=== PATIENT | female | born 1945 | race Caucasian/White ===

== ENCOUNTER → 2017-07-18 16:23 | Outpatient (CLI) | payer MEDICARE, BC, SELFPAY ==
--- NOTE | 2017-07-18 16:31 | DI.RAD.S_ITS ---
PROCEDURE: XR CHEST 2V INDICATIONS: CHEST PAIN TECHNIQUE: 2 views of the chest were acquired. COMPARISON: [facility], , CHEST 2 VIEW, 07/22/2015, 14:55. FINDINGS: Surgical changes and devices: None. Lungs and pleura: No pleural effusions or pneumothorax. Lungs are clear. Lung volumes are increased with flattening of the hemidiaphragms suggesting COPD. Mediastinum: Mediastinal contours are normal. Heart size is normal. Bones and chest wall: No suspicious bony abnormalities. Soft tissues appear unremarkable. IMPRESSION: Lung volumes are increased suggesting COPD, correlate with pulmonary functions test. Dictated by: Isaiah Alejo [facility] Interpreted: Luis Enrique Palencia MD on 07/18/2017 at 17:00 Approved by: Luis Enrique Palencia M.D. on 07/18/2017 at 21:41
== END ==
PROVIDERS: Family Provider Family Medicine; PCP Family Medicine; Visit Provider Nurse Practitioner Family
DX: R07.9 Chest pain, unspecified (principal)
CPT/HCPCS: 71046

== ENCOUNTER → 2018-06-25 10:18 | Outpatient (CLI) | payer MEDICARE, BC, SELFPAY ==
--- NOTE | 2018-06-25 | DI.MG.S_ITS ---
BILATERAL DIGITAL SCREENING MAMMOGRAM 3D/2D WITH CAD: 06/25/2018 CLINICAL: Routine screening. Family history of breast cancer. Comparison is made to exams dated: 06/07/2017 mammogram, 12/12/2014 mammogram - [facility], and 10/26/2010 mammogram - [facility]. The tissue of both breasts is extremely dense, which lowers the sensitivity of mammography. Current study was also evaluated with a Computer Aided Detection (CAD) system. There are benign post operative findings in the left breast. There also are benign calcifications in both breasts. No significant masses, calcifications, or other findings are seen in either breast. There has been no significant interval change. IMPRESSION: There is no mammographic evidence of malignancy. A 1 year screening mammogram is recommended. This exam was interpreted at Station ID: [id number]. NOTE: For mammograms, a report in lay terms will be sent to the patient. Approximately 15% of breast malignancies will not be visualized mammographically. In the management of a palpable breast mass, a negative mammogram must not discourage biopsy of a clinically suspicious lesion. Electronically Signed By: Joe lima/falguni:06/25/2018 11:12:43 letter sent: Normal Exam ACR BI-RADS Category 2: Benign Finding(s) [id number]
== END ==
PROVIDERS: Family Provider Family Medicine; PCP Family Medicine; Visit Provider Family Medicine
DX: Z12.31 Encounter for screening mammogram for malignant neoplasm of breast (principal); Z80.3 Family history of malignant neoplasm of breast
CPT/HCPCS: 77063; 77067

== ENCOUNTER → 2018-10-23 18:33 | Outpatient (CLI) | payer MEDICARE, BC, SELFPAY ==
--- NOTE | 2018-10-23 18:39 | DI.MRI.S_ITS ---
PROCEDURE: MR KNEE LT WO CON INDICATIONS: PAIN IN LEFT KNEE TECHNIQUE: Noncontrast sagittal PD fast spin echo and T2 fast spin echo with fat saturation, sagittal 3-D FLASH with fat saturation; coronal T1 spin echo and PD fast spin echo with fat saturation, and axial PD fast spin echo with fat saturation through the knee. COMPARISON: [facility], MR, KNEE WITHOUT CONTRAST, 10/05/2016, 12:58. FINDINGS: Image quality: Excellent. Menisci: Linear high T2 signal intensity within the posterior horn medial meniscus is present, without articular surface extension, consistent with myxoid degeneration, as before. Cruciate ligaments: The anterior and posterior cruciate ligaments appear intact. Medial structures: The medial collateral ligament appears intact. Visualized portions of the pes anserinus tendons appear normal. No abnormal bursal fluid. Lateral structures: The lateral collateral ligament, long and short heads of the biceps femoris tendon appear intact. The popliteus tendon appears normal. Iliotibial band appears normal. Anterior structures: The quadriceps and patellar tendons appear intact. Mild T2 signal elevation within the patellar tendon at the patellar insertion site. Patellar alignment is normal. No femoral trochlear dysplasia or ventral trochlear prominence. No edema in the infrapatellar fat pad. Bones and cartilage: No bone marrow contusions or fractures. Articular cartilage fibrillation overlies the lateral patellar facet. Moderate diffuse articular cartilage loss overlies the weightbearing aspect of the medial femoral condyle and medial tibial plateau. Mild diffuse articular cartilage loss overlies the weightbearing aspects of the lateral femoral condyle and lateral tibial plateau. Joint space: There is physiologic knee joint fluid. Trace Diana's cyst. Normal appearing synovial plicae are incidentally noted. IMPRESSION: 1. No internal derangement. 2. Trace Diana's cyst. 3. Mild patellar tendinitis. Dictated by: Reinaldo Stauffer M.D. on 10/24/2018 at 11:35 Approved by: Reinaldo Stauffer M.D. on 10/24/2018 at 11:41
== END ==
PROVIDERS: Family Provider Family Medicine; PCP Family Medicine; Visit Provider Orthopaedic Surgery
DX: M25.562 Pain in left knee (principal); M76.52 Patellar tendinitis, left knee
CPT/HCPCS: 73721

== ENCOUNTER → 2018-11-26 07:12 | Outpatient (CLI) | payer MEDICARE, BC, SELFPAY ==
[2018-11-26 08:24] LABS: Appearance Urine UA CLEAR; Bilirubin Urine UA NEGATIVE (NEGATIVE); Color Urine UA YELLOW; Glucose Urine UA NEGATIVE (Negative); Ketones Urine UA 1+ (NEGATIVE); Leukocyte Esterase Urine UA NEGATIVE (NEGATIVE); Nitrite Urine UA NEGATIVE (Negative); Occult Blood Urine UA TRACE-LYSED (Negative); Protein Urine UA NEGATIVE (Negative); Urobilinogen Urine UA 0.2 E.U./dL (0.2)
[2018-11-26 08:44] LABS: Add Manual Diff / Slide Review NO; Basophils Absolute Auto 100 /uL (0-100); Eosinophils Absolute Auto 100 /uL (0-450); Eosinophils Percent Auto 1.8 % (2-4); Hematocrit 45.1 % (36-46); Hemoglobin 15.6 g/dL (12.0-16.0); Lymphocytes Absolute Auto 1400 /uL (1100-4500); Lymphocytes Percent Auto 23.2 % (25-40); Mean Corpuscular HGB Conc 34.6 % (30-36); Mean Corpuscular Volume 92.4 fL (80-100); Monocytes Absolute Auto 500 /uL (0-900); Monocytes Percent Auto 8.8 % (3-14); Neutrophils Absolute Auto 4000 /uL (1500-7000); Neutrophils Percent Auto 65.2 % (50-75); Platelet Count 314 X10^3/uL (150-400); Red Blood Cell Count 4.88 X10^6/uL (4.0-5.2); Red Cell Distribution Width 13.5 % (11.6-14.8); White Blood Cell Count 6.2 X10^3/uL (4.5-11.0)
[2018-11-26 08:46] LABS: Prothrombin Time 11.8 SECONDS (10.1-12.7)
[2018-11-26 08:53] LABS: HEMOLYSIS < 15 (0-50); Iron 115 ug/dL (37-170)
[2018-11-26 08:54] LABS: Alanine Aminotransferase 16 IU/L (9-52); Albumin 4.8 g/dL (3.5-5.0); Albumin Globulin Ratio 1.5 (1.0-2.8); Alkaline Phosphatase 73 U/L (38-126); Aspartate Aminotransferase 28 IU/L (14-36); BUN Creatinine Ratio 15.7 (6-22); Bilirubin Total 0.5 mg/dL (0.2-1.3); Blood Urea Nitrogen 11 mg/dL (7-17); Calcium 9.8 mg/dL (8.4-10.2); Carbon Dioxide 25 mmol/L (22-32); Chloride 103 mmol/L (98-107); Estimated Glomerular Filt Rate > 60.0 mL/min (>60); Globulin 3.1 g/dL (1.7-4.1); Glucose 94 mg/dL (80-110); HEMOLYSIS < 15 (0-50); Potassium 3.9 mmol/L (3.4-5.1); Sodium 138 mmol/L (137-145); Total Protein 7.9 g/dL (6.3-8.2)
[2018-11-26 09:04] LABS: Percent Iron Saturation 31 % (15-50); Total Iron Binding Capacity 367 ug/dL (265-497); Transferrin 319 mg/dL (206-381)
[2018-11-26 09:29] LABS: Ferritin 85.4 ng/mL (11.1-264)
== END ==
PROVIDERS: PCP Family Medicine; Visit Provider Family Medicine
DX: Z01.812 Encounter for preprocedural laboratory examination (principal); Z01.818 Encounter for other preprocedural examination
CPT/HCPCS: 36415; 80053; 81003; 82728; 83540; 83550; 85025; 85610

== ENCOUNTER 2019-04-15 14:30 | Outpatient (RCR) | payer MEDICARE, BC, SELFPAY ==
--- NOTE | 2019-01-07 18:28 | PT.OPPOC ---
Current Diagnoses Pain in unspecified hip (01/07/19) Visit Care Team Role Provider Type Mahesh Aguilar MD Primary Care Provider Physician Specialty: Family Practice Address: [facility] [place], [address] Email: [email or web address] Eb Reynolds MD Attending Provider Non-Staff Specialty: Orthopedic Surgery Address: [address] [place] [address], [address], [place], [address] Email: Plan Of Care PT-OP-T Assessment and Plan Start: 01/07/19 08:07 Freq: Status: Active Protocol: Document 01/07/19 08:08 MT (Rec: 01/07/19 14:52 MT [id number]) Physical Therapy Assessment Rehab Potential Rehabilitation Potential Good Evaluation Complexity Number of Personal Factors/Comorbidities 3 or More Number of Body Systems Impaired 1-2 Clinical Presentation at Evaluation Evolving Impairments Impairments Activity Tolerance,Balance, Functional Activities,Gait, Pain,Posture,ROM,Strength Goals stairs Short Term Goal (STG) pt will be able to equally accept weight onto her L and R LE in standing STG Duration 02/06/19 Senior Care Goal (LTG) pt will be able to ascend/ descend stairs with a reciprocal step through gait pattern LTG Duration 03/09/19 ROM Senior Care Goal (LTG) pt will increase hip flexion range to 110 to be able to don /doff sock/shoe independently without increase in pain LTG Duration 03/09/19 LEFS Short Term Goal (STG) Pt will report being able get up/dopwn from a chair or squat down with good body mechanics and no increase in pain. Dam Tender Goal (LTG) Pt will increase her LEFS score to 60/80 to demonstrate improved ability to carry out functional tasks and ADL's LTG Duration 03/09/19 ambulation Short Term Goal (STG) Pt will be able to demonstrate ambulation without deviations and without aggravation of symptoms. STG Duration 02/06/19 Senior Care Goal (LTG) Pt will be able to ambulate around [place] LTG Duration 03/09/19 strength Short Term Goal (STG) pt will be independent and adhere to HEP STG Duration 02/06/19 Dam Tender Goal (LTG) Pt will increase B LE strength to at least a 4+/5 for improved ability for gait and functional ADL's LTG Duration 03/09/19 Assessment Summary Assessment Pt presents to PT s/p L anterior FARHANA on 12/17/18. She has no hip precautions from surgery. She demonstrates antalgic gait and postural deviations resulting from pain and stiffness in L hip. Pt has decreased ROM and strength in her L hip that limits her activity tolerance and interferes with her ADL's. She will benefit from skilled PT in order to address her strength/ROM deficits and improve her functional movement for ability to perform ADL's Physical Therapy Plan Frequency and Duration Frequency of Treatment 2x/Week Duration of Treatment 2 months Plan of Care Start Date 01/07/19 Plan of Care End Date 03/09/19 Therapeutic Interventions Therapeutic Interventions Aquatic Therapy,Balance Training,Coordination Training ,Gait Training,Home Exercise Program,Joint Mobilizations, Manual Therapy,Neuromuscular Re-education,Patient/Caregiver Education,Self-Care/Home Management,Sensory Integration ,Soft Tissue Mobilization, Taping,Therapeutic Activities, Therapeutic Exercises Modalities Cold Pack/Ice Massage,Electric Stimulation,Hot Packs, Ultrasound Next Visit Focus/Plan Next Note Type Treatment Note Next Visit Plan Develop HEP focused on hip strengthening Plan of Care Dates Plan of Care Start Date 01/07/19 Plan of Care End Date 03/09/19
--- NOTE | 2019-01-07 19:19 | PT.OIE ---
Current Diagnoses Pain in unspecified hip (01/07/19) Past Medical History (Last Updated 07/17/17 @ 11:47 by Lynn Rosa) Chickenpox (Resolved ~1950) Hypoglycemia (Chronic ~1965) Measles (Resolved ~1953) Mumps (Resolved ~1952) Rosacea (Chronic ~2004) Past Surgical History (Last Updated 07/17/17 @ 11:47 by Lynn Rosa) Anesthesia (Inactive) Status post appendectomy Status post breast biopsy Visit Care Team Role Provider Type Mahesh Aguilar MD Primary Care Provider Physician Specialty: Family Practice Address: [address] [place] [address], [facility] Email: [email or web address] Eb Reynolds MD Attending Provider Non-Staff Specialty: Orthopedic Surgery Address: [address] [place] [address], [place], [place], [facility] Email: Physical Therapy Initial Evaluation PT-OP-A Visit Information Start: 01/07/19 08:07 Freq: Status: Active Protocol: Document 01/07/19 08:08 MT (Rec: 01/07/19 14:52 MT [id number]) Out-Patient Physical Therapy Visit Information Visit Information Visit Type Initial Evaluation Visit Start Time 08:15 Visit Stop Time 09:01 Total Visit Minutes 46 Visit Number 1 Number of ELECTRIC TRUCKER Visits 0 PT-OP-B Current Condition Start: 01/07/19 08:07 Freq: Status: Active Protocol: Document 01/07/19 08:08 MT (Rec: 01/07/19 14:52 MT [id number]) Current Condition History of Current Condition Onset Date 12/17/18 Current Complaints s/p anterior L FARHANA History of Current Condition Pt had anterior ttoal hip replacement at [facility] on . Pt was given no precautions from her surgeon. Pt went into chiropractor last monday and said she had her knee put back in place. Intermittent knee pain for past 5-6 years and sometimes doesnt feel like it always lines up correctly. Pt reports swelling in medial knee throughout day. Pt limps during gait with a left lateral trunk lean. Pt feels like she is putting equal weight through her feet now that she has had the surgery. DOes not hurt to sit, but leans towards the right side when sitting to offload L hip. This was the first tiome today that she drove, but is not able to turn over her shoulder completely towards the right. Pt struggles putting on socks and is only able to slip on shoes on L foot. 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 Pt's knee has been bugging her for about 5-6 years after a fall while birding and reports that knee has gotten worse since then. Prior to surgery pt said that knee hurt along patellar tendon. Pt reports that knee has been better since surgery, but still bugs her. She was apprehensive about laying on her L side. Pt reports that she feels a general numbness down the anterior aspect of her L thigh . Treatment Goals Patient/Caregiver Goals Pt's goal is to be able to walk around [place] and walk up stairs with a reciprocal gait pattern, improve her posture, and walk evenly. PT-OP-C Subjective Start: 01/07/19 08:07 Freq: Status: Active Protocol: Document 01/07/19 08:08 MT (Rec: 01/07/19 14:52 MT [id number]) Patient Questionnaires Lower Extremity Functional Scale LEFS Score 32/80 LEFS Impairment 40 to 59% Impaired (Score 32- 47) OP-PT Pain Assessment Location L Knee Pain Location Details medial and anterior knee Intensity 2 Scale Used Numeric (1 - 10) Description- Other feels like it's not alligning correctly, swelling throughout the day L Hip Pain Location Details L hip and anterior thigh Intensity 3 Scale Used Numeric (1 - 10) Description- Other stiff Frequency Constant Radiating Location numb down ant leg PT-OP-G Mobility & Gait Start: 01/07/19 08:07 Freq: Status: Active Protocol: Document 01/07/19 08:08 MT (Rec: 01/07/19 14:52 MT [id number]) OP Gait Assessment Comments Gait Comments Pt limps when she walks and has a L lateral trunk lean. She has very little push off of the L leg and is not able to get her L hip or knee to fully extend, and instead externally rotated her pelvis to propel forward. Pt performed bilateral mini squat to assess knee alignment . Pt's L knee moves laterally over 4th digit and pt's R knee goes medially beyond 1st toe. PT-OP-J Posture/Palpation/Skin Start: 01/07/19 08:07 Freq: Status: Active Protocol: Document 01/07/19 08:08 MT (Rec: 01/07/19 14:52 MT [id number]) Posture Evaluation Comments Posture Comments Pt sits with a R lateral lean in order to offload L hip during sitting. Skin Assessment Incisional Assessment Incision Appearance/Comments Pt incision on L groin/ant thigh area appears mostly closed up. Only slight pink coloration to inferior aspect of wound. No drainage. residual adhesive surrounding wound. PT-OP-K Range of Motion Start: 01/07/19 08:07 Freq: Status: Active Protocol: Document 01/07/19 08:08 MT (Rec: 01/07/19 14:52 MT [id number]) Hip Goniometric Range of Motion Hip Left Hip ROM WFL Yes Testing Position Supine Flexion w/Knee Flexed 119 Right Hip ROM WFL Yes Testing Position Supine Flexion w/Knee Flexed 92 Knee Goniometric Range of Motion Knee Left Knee ROM WFL Yes Patient Position Sitting Flexion Active (degrees) 144 Extension Active (degrees) 11 Right Knee ROM WFL Yes Patient Position Sitting Flexion Active (degrees) 142 Extension Active (degrees) 0 Knee ROM Limitations Comments Pt lacking 11 degrees of full L knee ext. Pt's knee extension performed in sitting and knee flexion performed in supine. Ankle and Foot Goniometric Range of Motion Ankle and Foot Left Ankle/Foot ROM WFL Yes Testing Position Sitting Dorsiflexion with Knee Flexed 9 Plantarflexion 65 Right Ankle/Foot ROM WFL Yes Testing Position Sitting Dorsiflexion with Knee Flexed 12 Plantarflexion 65 PT-OP-M Strength Start: 01/07/19 08:07 Freq: Status: Active Protocol: Document 01/07/19 08:08 MT (Rec: 01/07/19 14:52 MT [id number]) Hip Strength Hip Manual Muscle Testing Left Flexion (L2) 4- Good- Abduction 3+ Fair+ External Rotation 3+ Fair+ Internal Rotation 3+ Fair+ Right Flexion (L2) 4 Good Abduction 4 Good Adduction 4 Good External Rotation 4- Good- Internal Rotation 4- Good- Comments R abduction tested in supine b /c pt unable to tolerate L sidelying Knee Strength Knee Manual Muscle Testing Left Flexion (S2) 4 Good Extension (L3) 4 Good Right Flexion (S2) 4 Good Extension (L3) 4+ Good+ Ankle/Foot Strength Ankle and Foot Manual Muscle Testing Left Dorsiflexion (L4) 4+ Good+ Plantarflexion (S1) 4+ Good+ Right Dorsiflexion (L4) 5 Normal Plantarflexion (S1) 5 Normal PT-OP-Q Treatments Start: 01/07/19 08:07 Freq: Status: Active Protocol: Document 01/07/19 08:08 MT (Rec: 01/07/19 14:52 MT [id number]) Therapeutic Exercises Standing Exercises side stepping Standing Exercise Name side steps Side bilateral Reps/Minutes 10 each direction PT-OP-T Assessment and Plan Start: 01/07/19 08:07 Freq: Status: Active Protocol: Document 01/07/19 08:08 MT (Rec: 01/07/19 14:52 MT [id number]) Physical Therapy Assessment Rehab Potential Rehabilitation Potential Good Evaluation Complexity Number of Personal Factors/Comorbidities 3 or More Number of Body Systems Impaired 1-2 Clinical Presentation at Evaluation Evolving Impairments Impairments Activity Tolerance,Balance, Functional Activities,Gait, Pain,Posture,ROM,Strength Goals stairs Short Term Goal (STG) pt will be able to equally accept weight onto her L and R LE in standing STG Duration 02/06/19 [facility] Goal (LTG) pt will be able to ascend/ descend stairs with a reciprocal step through gait pattern LTG Duration 03/09/19 ROM [facility] Goal (LTG) pt will increase hip flexion range to 110 to be able to don /doff sock/shoe independently without increase in pain LTG Duration 03/09/19 LEFS Short Term Goal (STG) Pt will report being able get up/dopwn from a chair or squat down with good body mechanics and no increase in pain. [facility] Goal (LTG) Pt will increase her LEFS score to 60/80 to demonstrate improved ability to carry out functional tasks and ADL's LTG Duration 03/09/19 ambulation Short Term Goal (STG) Pt will be able to demonstrate ambulation without deviations and without aggravation of symptoms. STG Duration 02/06/19 Arabic Teacher Goal (LTG) Pt will be able to ambulate around [place] LTG Duration 03/09/19 strength Short Term Goal (STG) pt will be independent and adhere to HEP STG Duration 02/06/19 [facility] Goal (LTG) Pt will increase B LE strength to at least a 4+/5 for improved ability for gait and functional ADL's LTG Duration 03/09/19 Assessment Summary Assessment Pt presents to PT s/p L anterior FARHANA on 12/17/18. She has no hip precautions from surgery. She demonstrates antalgic gait and postural deviations resulting from pain and stiffness in L hip. Pt has decreased ROM and strength in her L hip that limits her activity tolerance and interferes with her ADL's. She will benefit from skilled PT in order to address her strength/ROM deficits and improve her functional movement for ability to perform ADL's Physical Therapy Plan Frequency and Duration Frequency of Treatment 2x/Week Duration of Treatment 2 months Plan of Care Start Date 01/07/19 Plan of Care End Date 03/09/19 Therapeutic Interventions Therapeutic Interventions Aquatic Therapy,Balance Training,Coordination Training ,Gait Training,Home Exercise Program,Joint Mobilizations, Manual Therapy,Neuromuscular Re-education,Patient/Caregiver Education,Self-Care/Home Management,Sensory Integration ,Soft Tissue Mobilization, Taping,Therapeutic Activities, Therapeutic Exercises Modalities Cold Pack/Ice Massage,Electric Stimulation,Hot Packs, Ultrasound Next Visit Focus/Plan Next Note Type Treatment Note Next Visit Plan Develop HEP focused on hip strengthening
--- NOTE | 2019-01-10 10:39 | PT.OTN ---
Current Diagnoses Pain in unspecified hip (01/10/19) Physical Therapy Treatment Note PT-OP-A Visit Information Start: 01/07/19 08:07 Freq: Status: Active Protocol: Document 01/10/19 08:17 [facility] (Rec: 01/10/19 10:38 [facility] [id number]) Out-Patient Physical Therapy Visit Information Visit Information Visit Type Treatment Note Visit Start Time 08:16 Visit Stop Time 08:58 Total Visit Minutes 42 Visit Number 2 Number of PARENT AIDE Visits 0 PT-OP-B Current Condition Start: 01/07/19 08:07 Freq: Status: Active Protocol: Document 01/07/19 08:08 MT (Rec: 01/07/19 14:52 MT [id number]) Current Condition History of Current Condition Onset Date 12/17/18 Current Complaints s/p anterior L FARHANA History of Current Condition Pt had anterior ttoal hip replacement at [facility] on . Pt was given no precautions from her surgeon. Pt went into chiropractor last monday and said she had her knee put back in place. Intermittent knee pain for past 5-6 years and sometimes doesnt feel like it always lines up correctly. Pt reports swelling in medial knee throughout day. Pt limps during gait with a left lateral trunk lean. Pt feels like she is putting equal weight through her feet now that she has had the surgery. DOes not hurt to sit, but leans towards the right side when sitting to offload L hip. This was the first tiome today that she drove, but is not able to turn over her shoulder completely towards the right. Pt struggles putting on socks and is only able to slip on shoes on L foot. 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 Pt's knee has been bugging her for about 5-6 years after a fall while birding and reports that knee has gotten worse since then. Prior to surgery pt said that knee hurt along patellar tendon. Pt reports that knee has been better since surgery, but still bugs her. She was apprehensive about laying on her L side. Pt reports that she feels a general numbness down the anterior aspect of her L thigh . Treatment Goals Patient/Caregiver Goals Pt's goal is to be able to walk around [place] and walk up stairs with a reciprocal gait pattern, improve her posture, and walk evenly. PT-OP-C Subjective Start: 01/07/19 08:07 Freq: Status: Active Protocol: Document 01/10/19 08:17 [facility] (Rec: 01/10/19 10:38 [facility] [id number]) OP-PT Subjective Patient Comments Patient Comments Pt reports over doing it 2 days ago so was sore and underdoing it yesterday so is stiff. Did sidesteps. PT-OP-G Mobility & Gait Start: 01/07/19 08:07 Freq: Status: Active Protocol: Document 01/07/19 08:08 MT (Rec: 01/07/19 14:52 MT [id number]) OP Gait Assessment Comments Gait Comments Pt limps when she walks and has a L lateral trunk lean. She has very little push off of the L leg and is not able to get her L hip or knee to fully extend, and instead externally rotated her pelvis to propel forward. Pt performed bilateral mini squat to assess knee alignment . Pt's L knee moves laterally over 4th digit and pt's R knee goes medially beyond 1st toe. PT-OP-J Posture/Palpation/Skin Start: 01/07/19 08:07 Freq: Status: Active Protocol: Document 01/07/19 08:08 MT (Rec: 01/07/19 14:52 MT [id number]) Posture Evaluation Comments Posture Comments Pt sits with a R lateral lean in order to offload L hip during sitting. Skin Assessment Incisional Assessment Incision Appearance/Comments Pt incision on L groin/ant thigh area appears mostly closed up. Only slight pink coloration to inferior aspect of wound. No drainage. residual adhesive surrounding wound. PT-OP-K Range of Motion Start: 01/07/19 08:07 Freq: Status: Active Protocol: Document 01/07/19 08:08 MT (Rec: 01/07/19 14:52 MT [id number]) Hip Goniometric Range of Motion Hip Left Hip ROM WFL Yes Testing Position Supine Flexion w/Knee Flexed 119 Right Hip ROM WFL Yes Testing Position Supine Flexion w/Knee Flexed 92 Knee Goniometric Range of Motion Knee Left Knee ROM WFL Yes Patient Position Sitting Flexion Active (degrees) 144 Extension Active (degrees) 11 Right Knee ROM WFL Yes Patient Position Sitting Flexion Active (degrees) 142 Extension Active (degrees) 0 Knee ROM Limitations Comments Pt lacking 11 degrees of full L knee ext. Pt's knee extension performed in sitting and knee flexion performed in supine. Ankle and Foot Goniometric Range of Motion Ankle and Foot Left Ankle/Foot ROM WFL Yes Testing Position Sitting Dorsiflexion with Knee Flexed 9 Plantarflexion 65 Right Ankle/Foot ROM WFL Yes Testing Position Sitting Dorsiflexion with Knee Flexed 12 Plantarflexion 65 PT-OP-M Strength Start: 01/07/19 08:07 Freq: Status: Active Protocol: Document 01/07/19 08:08 MT (Rec: 01/07/19 14:52 WI [id number]) Hip Strength Hip Manual Muscle Testing Left Flexion (L2) 4- Good- Abduction 3+ Fair+ External Rotation 3+ Fair+ Internal Rotation 3+ Fair+ Right Flexion (L2) 4 Good Abduction 4 Good Adduction 4 Good External Rotation 4- Good- Internal Rotation 4- Good- Comments R abduction tested in supine b /c pt unable to tolerate L sidelying Knee Strength Knee Manual Muscle Testing Left Flexion (S2) 4 Good Extension (L3) 4 Good Right Flexion (S2) 4 Good Extension (L3) 4+ Good+ Ankle/Foot Strength Ankle and Foot Manual Muscle Testing Left Dorsiflexion (L4) 4+ Good+ Plantarflexion (S1) 4+ Good+ Right Dorsiflexion (L4) 5 Normal Plantarflexion (S1) 5 Normal PT-OP-Q Treatments Start: 01/07/19 08:07 Freq: Status: Active Protocol: Document 01/10/19 08:17 [facility] (Rec: 01/10/19 10:38 [facility] [id number]) Cardio Equipment Recumbent Elliptical (Biodex) Duration (Minutes) 5 Resistance 3 Seat Position 5 Therapeutic Exercises Supine Exercises Hip ER Side bilateral Equipment Used L3 Reps/Minutes 2x10 bridge Side bilateral Reps/Minutes 10x2 Sidelying Exercises ER Sidelying Exercise Name pt unable to lift knee for clamshell exercise more than 1 in abd Sidelying Exercise Name attempted but too painful on L knee IR Sidelying Exercise Name reverse clamshell Side left Reps/Minutes 10x2 Standing Exercises squat Standing Exercise Name mini Side bilateral Reps/Minutes 10x2 hip abd Comments stopped after 3 reps d/t pain side stepping Standing Exercise Name side steps Side bilateral Reps/Minutes 20ft w/o restance then 20ft w/ L1 Manual Therapy Treatment Soft Tissue Mobilization quad/ITB Body Location lat quad & ITB Mobilization Type Rolling,Strumming Intensity/Depth Moderate Comments R knee to chest w/pillow under L leg w/hip rotation Body Location circumfrential MFR, adductors Comments AROM hooklying Hip ER/IR PT-OP-T Assessment and Plan Start: 01/07/19 08:07 Freq: Status: Active Protocol: Document 01/10/19 08:17 [facility] (Rec: 01/10/19 10:38 [facility] [id number]) Physical Therapy Assessment Goals stairs Short Term Goal (STG) pt will be able to equally accept weight onto her L and R LE in standing STG Duration 02/06/19 Aircraft Line Assembler Goal (LTG) pt will be able to ascend/ descend stairs with a reciprocal step through gait pattern LTG Duration 03/09/19 ROM Aircraft Line Assembler Goal (LTG) pt will increase hip flexion range to 110 to be able to don /doff sock/shoe independently without increase in pain LTG Duration 03/09/19 LEFS Short Term Goal (STG) Pt will report being able get up/dopwn from a chair or squat down with good body mechanics and no increase in pain. Aircraft Line Assembler Goal (LTG) Pt will increase her LEFS score to 60/80 to demonstrate improved ability to carry out functional tasks and ADL's LTG Duration 03/09/19 ambulation Short Term Goal (STG) Pt will be able to demonstrate ambulation without deviations and without aggravation of symptoms. STG Duration 02/06/19 Aircraft Line Assembler Goal (LTG) Pt will be able to ambulate around [place] LTG Duration 03/09/19 strength Short Term Goal (STG) pt will be independent and adhere to HEP STG Duration 02/06/19 Halfway Goal (LTG) Pt will increase B LE strength to at least a 4+/5 for improved ability for gait and functional ADL's LTG Duration 03/09/19 Assessment Summary Assessment Pt had difficulty with doing standing & s/l abd d/t knee pain and was unable to do clamshells s/l but was able to do hip ER with resistance in supine & resisted sidestepping to work on mm strength. Cueing required for form during exercises. Manual therapy to address ROM restrictions & IR & ER and hip ext improved after manual treatment with improved push off in standing. Physical Therapy Plan Frequency and Duration Frequency of Treatment 2x/Week Duration of Treatment 2 months Plan of Care Start Date 01/07/19 Plan of Care End Date 03/09/19 Next Visit Focus/Plan Next Note Type Treatment Note Next Visit Plan Review exercises and progress as tolerated
--- NOTE | 2019-01-15 17:58 | PT.OTN ---
Current Diagnoses Pain in unspecified hip (01/15/19) Physical Therapy Treatment Note PT-OP-A Visit Information Start: 01/07/19 08:07 Freq: Status: Active Protocol: Document 01/15/19 11:15 MT (Rec: 01/15/19 12:42 MT [id number]) Out-Patient Physical Therapy Visit Information Visit Information Visit Type Treatment Note Visit Start Time 11:15 Visit Stop Time 11:59 Total Visit Minutes 44 Visit Number 3 Number of ELECTRICAL TECHNICIAN INSTRUCTOR Visits 0 PT-OP-B Current Condition Start: 01/07/19 08:07 Freq: Status: Active Protocol: Document 01/07/19 08:08 MT (Rec: 01/07/19 14:52 MT [id number]) Current Condition History of Current Condition Onset Date 12/17/18 Current Complaints s/p anterior L FARHANA History of Current Condition Pt had anterior ttoal hip replacement at [facility] on . Pt was given no precautions from her surgeon. Pt went into chiropractor last monday and said she had her knee put back in place. Intermittent knee pain for past 5-6 years and sometimes doesnt feel like it always lines up correctly. Pt reports swelling in medial knee throughout day. Pt limps during gait with a left lateral trunk lean. Pt feels like she is putting equal weight through her feet now that she has had the surgery. DOes not hurt to sit, but leans towards the right side when sitting to offload L hip. This was the first tiome today that she drove, but is not able to turn over her shoulder completely towards the right. Pt struggles putting on socks and is only able to slip on shoes on L foot. 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 Pt's knee has been bugging her for about 5-6 years after a fall while birding and reports that knee has gotten worse since then. Prior to surgery pt said that knee hurt along patellar tendon. Pt reports that knee has been better since surgery, but still bugs her. She was apprehensive about laying on her L side. Pt reports that she feels a general numbness down the anterior aspect of her L thigh . Treatment Goals Patient/Caregiver Goals Pt's goal is to be able to walk around [place] and walk up stairs with a reciprocal gait pattern, improve her posture, and walk evenly. PT-OP-C Subjective Start: 01/07/19 08:07 Freq: Status: Active Protocol: Document 01/15/19 11:15 MT (Rec: 01/15/19 12:42 MT [id number]) OP-PT Subjective Patient Comments Patient Comments Pt reports that she woke up on monday being sore in her L ant thigh and L knee. She remembered doing a lot of walking on monday but couldnt remember any other thing that might have caused the pain. PT-OP-G Mobility & Gait Start: 01/07/19 08:07 Freq: Status: Active Protocol: Document 01/07/19 08:08 MT (Rec: 01/07/19 14:52 MT [id number]) OP Gait Assessment Comments Gait Comments Pt limps when she walks and has a L lateral trunk lean. She has very little push off of the L leg and is not able to get her L hip or knee to fully extend, and instead externally rotated her pelvis to propel forward. Pt performed bilateral mini squat to assess knee alignment . Pt's L knee moves laterally over 4th digit and pt's R knee goes medially beyond 1st toe. PT-OP-J Posture/Palpation/Skin Start: 01/07/19 08:07 Freq: Status: Active Protocol: Document 01/07/19 08:08 MT (Rec: 01/07/19 14:52 MT [id number]) Posture Evaluation Comments Posture Comments Pt sits with a R lateral lean in order to offload L hip during sitting. Skin Assessment Incisional Assessment Incision Appearance/Comments Pt incision on L groin/ant thigh area appears mostly closed up. Only slight pink coloration to inferior aspect of wound. No drainage. residual adhesive surrounding wound. PT-OP-K Range of Motion Start: 01/07/19 08:07 Freq: Status: Active Protocol: Document 01/07/19 08:08 MT (Rec: 01/07/19 14:52 MT [id number]) Hip Goniometric Range of Motion Hip Left Hip ROM WFL Yes Testing Position Supine Flexion w/Knee Flexed 119 Right Hip ROM WFL Yes Testing Position Supine Flexion w/Knee Flexed 92 Knee Goniometric Range of Motion Knee Left Knee ROM WFL Yes Patient Position Sitting Flexion Active (degrees) 144 Extension Active (degrees) 11 Right Knee ROM WFL Yes Patient Position Sitting Flexion Active (degrees) 142 Extension Active (degrees) 0 Knee ROM Limitations Comments Pt lacking 11 degrees of full L knee ext. Pt's knee extension performed in sitting and knee flexion performed in supine. Ankle and Foot Goniometric Range of Motion Ankle and Foot Left Ankle/Foot ROM WFL Yes Testing Position Sitting Dorsiflexion with Knee Flexed 9 Plantarflexion 65 Right Ankle/Foot ROM WFL Yes Testing Position Sitting Dorsiflexion with Knee Flexed 12 Plantarflexion 65 PT-OP-M Strength Start: 01/07/19 08:07 Freq: Status: Active Protocol: Document 01/07/19 08:08 MT (Rec: 01/07/19 14:52 MT [id number]) Hip Strength Hip Manual Muscle Testing Left Flexion (L2) 4- Good- Abduction 3+ Fair+ External Rotation 3+ Fair+ Internal Rotation 3+ Fair+ Right Flexion (L2) 4 Good Abduction 4 Good Adduction 4 Good External Rotation 4- Good- Internal Rotation 4- Good- Comments R abduction tested in supine b /c pt unable to tolerate L sidelying Knee Strength Knee Manual Muscle Testing Left Flexion (S2) 4 Good Extension (L3) 4 Good Right Flexion (S2) 4 Good Extension (L3) 4+ Good+ Ankle/Foot Strength Ankle and Foot Manual Muscle Testing Left Dorsiflexion (L4) 4+ Good+ Plantarflexion (S1) 4+ Good+ Right Dorsiflexion (L4) 5 Normal Plantarflexion (S1) 5 Normal PT-OP-Q Treatments Start: 01/07/19 08:07 Freq: Status: Active Protocol: Document 01/15/19 11:15 MT (Rec: 01/15/19 12:42 MT [id number]) Cardio Equipment Recumbent Elliptical (Biodex) Duration (Minutes) 6 Resistance 6 Seat Position 5 Therapeutic Exercises Supine Exercises quad set Supine Exercise Name quad set with pillow underneath Side left Comments SKTC of opposite knee bridge Side bilateral Resistance L1 band at knees for added ER Reps/Minutes 10 Comments progressed with HEP Sidelying Exercises ER Sidelying Exercise Name clamshell Resistance none Reps/Minutes 10 IR Sidelying Exercise Name reverse clamshell Side left Reps/Minutes 10 Standing Exercises TKE Side left Resistance L2 Reps/Minutes 15 squat Standing Exercise Name mini Side bilateral Reps/Minutes 15 Comments cueing for getting hips back and avoiding medial knee collapse to dec. pain hip abd Standing Exercise Name standing hip ext and abd Side bilateral Comments cueing for dec range and trunk lean to dec. pain side stepping Standing Exercise Name side steps Side bilateral Resistance L1 around knees Reps/Minutes 20ft both direction Comments attempted L1 around ankles, but pt said it hurt knee Manual Therapy Treatment Joint Mobilizations Tibiofemoral Joint L tibiofemroal Direction AP on femur Grade III Body Position Supine Comments with ankle pumps and quad sets PT-OP-T Assessment and Plan Start: 01/07/19 08:07 Freq: Status: Active Protocol: Document 01/15/19 11:15 MT (Rec: 01/15/19 12:42 MT [id number]) Physical Therapy Assessment Goals stairs Short Term Goal (STG) pt will be able to equally accept weight onto her L and R LE in standing STG Duration 02/06/19 Usp Goal (LTG) pt will be able to ascend/ descend stairs with a reciprocal step through gait pattern LTG Duration 03/09/19 ROM Usp Goal (LTG) pt will increase hip flexion range to 110 to be able to don /doff sock/shoe independently without increase in pain LTG Duration 03/09/19 LEFS Short Term Goal (STG) Pt will report being able get up/dopwn from a chair or squat down with good body mechanics and no increase in pain. Usp Goal (LTG) Pt will increase her LEFS score to 60/80 to demonstrate improved ability to carry out functional tasks and ADL's LTG Duration 03/09/19 ambulation Short Term Goal (STG) Pt will be able to demonstrate ambulation without deviations and without aggravation of symptoms. STG Duration 02/06/19 Usp Goal (LTG) Pt will be able to ambulate around [place] LTG Duration 03/09/19 strength Short Term Goal (STG) pt will be independent and adhere to HEP STG Duration 02/06/19 Underwater Roboticist Goal (LTG) Pt will increase B LE strength to at least a 4+/5 for improved ability for gait and functional ADL's LTG Duration 03/09/19 Assessment Summary Assessment Reviewed pt exercises for form in order to make sure that pt is achievign proper technique and to see if any of the exercises aggravate her knee or hip pain. Pt was progressed in some of her exercises. SHe was able to perform clamshell exercises, which she was not able to before. Pt walked into the clinic with much less deviation. Pt was unable to achieve full knee extension d/ t decreased posterior femoral glide on tibia in closed chain activities with her hip exercises. Performed AP mobs on femur in order to increase this motion. Following mobs, pt was able to achieve greater knee and hip extension and reported less discomfort in her knee. Pt was also able to achieve greater VMO activation in her quad sets following joint mobs. Physical Therapy Plan Frequency and Duration Frequency of Treatment 2x/Week Duration of Treatment 2 months Plan of Care Start Date 01/07/19 Plan of Care End Date 03/09/19 Next Visit Focus/Plan Next Note Type Treatment Note Next Visit Plan Review how her exercises have been going, continue to work on hip strengthening as tolerated
--- NOTE | 2019-01-22 15:49 | PT.OTN ---
Current Diagnoses Pain in unspecified hip (01/22/19) Physical Therapy Treatment Note PT-OP-A Visit Information Start: 01/07/19 08:07 Freq: Status: Active Protocol: Document 01/22/19 15:26 [facility] (Rec: 01/22/19 15:49 [facility] [id number]) Out-Patient Physical Therapy Visit Information Visit Information Visit Type Treatment Note Visit Start Time 14:35 Visit Stop Time 15:26 Total Visit Minutes 51 Visit Number 4 Number of SAFETY TRAINER Visits 0 PT-OP-B Current Condition Start: 01/07/19 08:07 Freq: Status: Active Protocol: Document 01/07/19 08:08 MT (Rec: 01/07/19 14:52 MT [id number]) Current Condition History of Current Condition Onset Date 12/17/18 Current Complaints s/p anterior L FARHANA History of Current Condition Pt had anterior ttoal hip replacement at [facility] on . Pt was given no precautions from her surgeon. Pt went into chiropractor last monday and said she had her knee put back in place. Intermittent knee pain for past 5-6 years and sometimes doesnt feel like it always lines up correctly. Pt reports swelling in medial knee throughout day. Pt limps during gait with a left lateral trunk lean. Pt feels like she is putting equal weight through her feet now that she has had the surgery. DOes not hurt to sit, but leans towards the right side when sitting to offload L hip. This was the first tiome today that she drove, but is not able to turn over her shoulder completely towards the right. Pt struggles putting on socks and is only able to slip on shoes on L foot. 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 Pt's knee has been bugging her for about 5-6 years after a fall while birding and reports that knee has gotten worse since then. Prior to surgery pt said that knee hurt along patellar tendon. Pt reports that knee has been better since surgery, but still bugs her. She was apprehensive about laying on her L side. Pt reports that she feels a general numbness down the anterior aspect of her L thigh . Treatment Goals Patient/Caregiver Goals Pt's goal is to be able to walk around [place] and walk up stairs with a reciprocal gait pattern, improve her posture, and walk evenly. PT-OP-C Subjective Start: 01/07/19 08:07 Freq: Status: Active Protocol: Document 01/22/19 15:26 [facility] (Rec: 01/22/19 15:49 [facility] [id number]) OP-PT Subjective Patient Comments Patient Comments Pt reprots some of her exercises hurt her knee. PT-OP-G Mobility & Gait Start: 01/07/19 08:07 Freq: Status: Active Protocol: Document 01/07/19 08:08 MT (Rec: 01/07/19 14:52 MT [id number]) OP Gait Assessment Comments Gait Comments Pt limps when she walks and has a L lateral trunk lean. She has very little push off of the L leg and is not able to get her L hip or knee to fully extend, and instead externally rotated her pelvis to propel forward. Pt performed bilateral mini squat to assess knee alignment . Pt's L knee moves laterally over 4th digit and pt's R knee goes medially beyond 1st toe. PT-OP-J Posture/Palpation/Skin Start: 01/07/19 08:07 Freq: Status: Active Protocol: Document 01/07/19 08:08 MT (Rec: 01/07/19 14:52 MT [id number]) Posture Evaluation Comments Posture Comments Pt sits with a R lateral lean in order to offload L hip during sitting. Skin Assessment Incisional Assessment Incision Appearance/Comments Pt incision on L groin/ant thigh area appears mostly closed up. Only slight pink coloration to inferior aspect of wound. No drainage. residual adhesive surrounding wound. PT-OP-K Range of Motion Start: 01/07/19 08:07 Freq: Status: Active Protocol: Document 01/07/19 08:08 MT (Rec: 01/07/19 14:52 MT [id number]) Hip Goniometric Range of Motion Hip Left Hip ROM WFL Yes Testing Position Supine Flexion w/Knee Flexed 119 Right Hip ROM WFL Yes Testing Position Supine Flexion w/Knee Flexed 92 Knee Goniometric Range of Motion Knee Left Knee ROM WFL Yes Patient Position Sitting Flexion Active (degrees) 144 Extension Active (degrees) 11 Right Knee ROM WFL Yes Patient Position Sitting Flexion Active (degrees) 142 Extension Active (degrees) 0 Knee ROM Limitations Comments Pt lacking 11 degrees of full L knee ext. Pt's knee extension performed in sitting and knee flexion performed in supine. Ankle and Foot Goniometric Range of Motion Ankle and Foot Left Ankle/Foot ROM WFL Yes Testing Position Sitting Dorsiflexion with Knee Flexed 9 Plantarflexion 65 Right Ankle/Foot ROM WFL Yes Testing Position Sitting Dorsiflexion with Knee Flexed 12 Plantarflexion 65 PT-OP-M Strength Start: 01/07/19 08:07 Freq: Status: Active Protocol: Document 01/07/19 08:08 MT (Rec: 01/07/19 14:52 MT [id number]) Hip Strength Hip Manual Muscle Testing Left Flexion (L2) 4- Good- Abduction 3+ Fair+ External Rotation 3+ Fair+ Internal Rotation 3+ Fair+ Right Flexion (L2) 4 Good Abduction 4 Good Adduction 4 Good External Rotation 4- Good- Internal Rotation 4- Good- Comments R abduction tested in supine b /c pt unable to tolerate L sidelying Knee Strength Knee Manual Muscle Testing Left Flexion (S2) 4 Good Extension (L3) 4 Good Right Flexion (S2) 4 Good Extension (L3) 4+ Good+ Ankle/Foot Strength Ankle and Foot Manual Muscle Testing Left Dorsiflexion (L4) 4+ Good+ Plantarflexion (S1) 4+ Good+ Right Dorsiflexion (L4) 5 Normal Plantarflexion (S1) 5 Normal PT-OP-Q Treatments Start: 01/07/19 08:07 Freq: Status: Active Protocol: Document 01/22/19 15:26 [facility] (Rec: 01/22/19 15:49 [facility] [id number]) Cardio Equipment Recumbent Elliptical (Biodex) Duration (Minutes) 5 Resistance 6 Seat Position 5 Gym Equipment Shuttle Balance red clips Details fwd& side: WBOS balancing & wtshift & NBOS balance Therapeutic Exercises Supine Exercises bridge Supine Exercise Name w/alt marching Side bilateral Reps/Minutes 8 Comments tried with L3 band & arms in air and pt able to 10 with ease so progressed Sidelying Exercises ER Sidelying Exercise Name clamshell Side left Resistance none Reps/Minutes 15 Comments focus on no pelvis motion IR Sidelying Exercise Name reverse clamshell Side left Equipment Used L1 Reps/Minutes 12 Standing Exercises hip ext Side bilateral Equipment Used L1 Reps/Minutes 10 Comments small range TKE Side left Resistance L2 Reps/Minutes 15 hip abd Standing Exercise Name standing hip abd Comments stopped d/t knee pain even withs mall range & stabilizing side stepping Standing Exercise Name side steps Side bilateral Resistance L1 around knees Reps/Minutes 20ft both direction Manual Therapy Treatment Soft Tissue Mobilization quad/ITB Body Location lat quad & ITB Mobilization Type Rolling,Strumming Intensity/Depth Moderate Comments in knee ext position Self-Care/Home Management Treatment Education Other Education edu re: anatomy and mm atrophy d/t pain starting 5 years ago so she will have to take time in order to inc her strength & her motion again. PT-OP-T Assessment and Plan Start: 01/07/19 08:07 Freq: Status: Active Protocol: Document 01/22/19 15:26 [facility] (Rec: 01/22/19 15:49 [facility] [id number]) Physical Therapy Assessment Goals stairs Short Term Goal (STG) pt will be able to equally accept weight onto her L and R LE in standing STG Duration 02/06/19 [employer] Program Coordinator Goal (LTG) pt will be able to ascend/ descend stairs with a reciprocal step through gait pattern LTG Duration 03/09/19 ROM Prison Goal (LTG) pt will increase hip flexion range to 110 to be able to don /doff sock/shoe independently without increase in pain LTG Duration 03/09/19 LEFS Short Term Goal (STG) Pt will report being able get up/dopwn from a chair or squat down with good body mechanics and no increase in pain. Prison Goal (LTG) Pt will increase her LEFS score to 60/80 to demonstrate improved ability to carry out functional tasks and ADL's LTG Duration 03/09/19 ambulation Short Term Goal (STG) Pt will be able to demonstrate ambulation without deviations and without aggravation of symptoms. STG Duration 02/06/19 Prison Goal (LTG) Pt will be able to ambulate around [place] LTG Duration 03/09/19 strength Short Term Goal (STG) pt will be independent and adhere to HEP STG Duration 02/06/19 [employer] Program Coordinator Goal (LTG) Pt will increase B LE strength to at least a 4+/5 for improved ability for gait and functional ADL's LTG Duration 03/09/19 Assessment Summary Assessment Pt cont to improve iwth her gait mechanics and is imrpoving with wt acceptance onto LLE and push off during gait. Improving ability to rest in knee ext & hip into neutral when laying supine today. Pt required signficiant edu re: how recovery is long process especially since pain started 5-6 years ago. Physical Therapy Plan Frequency and Duration Frequency of Treatment 2x/Week Duration of Treatment 2 months Plan of Care Start Date 01/07/19 Plan of Care End Date 03/09/19 Next Visit Focus/Plan Next Note Type Treatment Note Next Visit Plan progress hip strength as tolerated, review squats, work on ant elevation & post depression, trace and isolate what causes knee pain with hip abd
--- NOTE | 2019-01-24 09:30 | PT.OTN ---
Current Diagnoses Pain in unspecified hip (01/24/19) Physical Therapy Treatment Note PT-OP-A Visit Information Start: 01/07/19 08:07 Freq: Status: Active Protocol: Document 01/24/19 08:19 [facility] (Rec: 01/24/19 09:30 [facility] [id number]) Out-Patient Physical Therapy Visit Information Visit Information Visit Type Treatment Note Visit Start Time 08:15 Visit Stop Time 08:55 Total Visit Minutes 40 Visit Number 5 Number of PARKING ENFORCEMENT SPECIALIST Visits 0 PT-OP-B Current Condition Start: 01/07/19 08:07 Freq: Status: Active Protocol: Document 01/07/19 08:08 MT (Rec: 01/07/19 14:52 MT [id number]) Current Condition History of Current Condition Onset Date 12/17/18 Current Complaints s/p anterior L FARHANA History of Current Condition Pt had anterior ttoal hip replacement at [facility] on . Pt was given no precautions from her surgeon. Pt went into chiropractor last monday and said she had her knee put back in place. Intermittent knee pain for past 5-6 years and sometimes doesnt feel like it always lines up correctly. Pt reports swelling in medial knee throughout day. Pt limps during gait with a left lateral trunk lean. Pt feels like she is putting equal weight through her feet now that she has had the surgery. DOes not hurt to sit, but leans towards the right side when sitting to offload L hip. This was the first tiome today that she drove, but is not able to turn over her shoulder completely towards the right. Pt struggles putting on socks and is only able to slip on shoes on L foot. 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 Pt's knee has been bugging her for about 5-6 years after a fall while birding and reports that knee has gotten worse since then. Prior to surgery pt said that knee hurt along patellar tendon. Pt reports that knee has been better since surgery, but still bugs her. She was apprehensive about laying on her L side. Pt reports that she feels a general numbness down the anterior aspect of her L thigh . Treatment Goals Patient/Caregiver Goals Pt's goal is to be able to walk around [place] and walk up stairs with a reciprocal gait pattern, improve her posture, and walk evenly. PT-OP-C Subjective Start: 01/07/19 08:07 Freq: Status: Active Protocol: Document 01/24/19 08:19 [facility] (Rec: 01/24/19 09:30 [facility] [id number]) OP-PT Subjective Patient Comments Patient Comments Pt reports she wants to review squats PT-OP-G Mobility & Gait Start: 01/07/19 08:07 Freq: Status: Active Protocol: Document 01/07/19 08:08 MT (Rec: 01/07/19 14:52 MT [id number]) OP Gait Assessment Comments Gait Comments Pt limps when she walks and has a L lateral trunk lean. She has very little push off of the L leg and is not able to get her L hip or knee to fully extend, and instead externally rotated her pelvis to propel forward. Pt performed bilateral mini squat to assess knee alignment . Pt's L knee moves laterally over 4th digit and pt's R knee goes medially beyond 1st toe. PT-OP-J Posture/Palpation/Skin Start: 01/07/19 08:07 Freq: Status: Active Protocol: Document 01/07/19 08:08 MT (Rec: 01/07/19 14:52 MT [id number]) Posture Evaluation Comments Posture Comments Pt sits with a R lateral lean in order to offload L hip during sitting. Skin Assessment Incisional Assessment Incision Appearance/Comments Pt incision on L groin/ant thigh area appears mostly closed up. Only slight pink coloration to inferior aspect of wound. No drainage. residual adhesive surrounding wound. PT-OP-K Range of Motion Start: 01/07/19 08:07 Freq: Status: Active Protocol: Document 01/07/19 08:08 MT (Rec: 01/07/19 14:52 MT [id number]) Hip Goniometric Range of Motion Hip Left Hip ROM WFL Yes Testing Position Supine Flexion w/Knee Flexed 119 Right Hip ROM WFL Yes Testing Position Supine Flexion w/Knee Flexed 92 Knee Goniometric Range of Motion Knee Left Knee ROM WFL Yes Patient Position Sitting Flexion Active (degrees) 144 Extension Active (degrees) 11 Right Knee ROM WFL Yes Patient Position Sitting Flexion Active (degrees) 142 Extension Active (degrees) 0 Knee ROM Limitations Comments Pt lacking 11 degrees of full L knee ext. Pt's knee extension performed in sitting and knee flexion performed in supine. Ankle and Foot Goniometric Range of Motion Ankle and Foot Left Ankle/Foot ROM WFL Yes Testing Position Sitting Dorsiflexion with Knee Flexed 9 Plantarflexion 65 Right Ankle/Foot ROM WFL Yes Testing Position Sitting Dorsiflexion with Knee Flexed 12 Plantarflexion 65 PT-OP-M Strength Start: 01/07/19 08:07 Freq: Status: Active Protocol: Document 01/07/19 08:08 [facility] (Rec: 01/07/19 14:52 MT [id number]) Hip Strength Hip Manual Muscle Testing Left Flexion (L2) 4- Good- Abduction 3+ Fair+ External Rotation 3+ Fair+ Internal Rotation 3+ Fair+ Right Flexion (L2) 4 Good Abduction 4 Good Adduction 4 Good External Rotation 4- Good- Internal Rotation 4- Good- Comments R abduction tested in supine b /c pt unable to tolerate L sidelying Knee Strength Knee Manual Muscle Testing Left Flexion (S2) 4 Good Extension (L3) 4 Good Right Flexion (S2) 4 Good Extension (L3) 4+ Good+ Ankle/Foot Strength Ankle and Foot Manual Muscle Testing Left Dorsiflexion (L4) 4+ Good+ Plantarflexion (S1) 4+ Good+ Right Dorsiflexion (L4) 5 Normal Plantarflexion (S1) 5 Normal PT-OP-Q Treatments Start: 01/07/19 08:07 Freq: Status: Active Protocol: Document 01/24/19 08:19 [facility] (Rec: 01/24/19 09:30 [facility] [id number]) Cardio Equipment Recumbent Elliptical (Biodex) Duration (Minutes) 6 Resistance 7 Seat Position 5 Therapeutic Exercises Supine Exercises Hip ER Supine Exercise Name IR/ER ROM with focus on core Side left Reps/Minutes 10 bridge Supine Exercise Name w/alt marching Side bilateral Reps/Minutes 8 Sidelying Exercises ER Sidelying Exercise Name clamshell Side left Resistance none Reps/Minutes 15 Comments focus on no pelvis motion Standing Exercises squat Standing Exercise Name 1. mini over chair 2. sit to stands Reps/Minutes 10 ea Manual Therapy Treatment Soft Tissue Mobilization w/hip abd Body Location adductors, med quads & glutes Mobilization Type Strumming,Sustained Pressure Body Position Supine Comments AAROM during mobs w/hip rotation Body Location circumfrential MFR & STM to adductors & glutes Body Position Hooklying PT-OP-T Assessment and Plan Start: 01/07/19 08:07 Freq: Status: Active Protocol: Document 01/24/19 08:19 [facility] (Rec: 01/24/19 09:30 [facility] [id number]) Physical Therapy Assessment Goals stairs Short Term Goal (STG) pt will be able to equally accept weight onto her L and R LE in standing STG Duration 02/06/19 Custodial Goal (LTG) pt will be able to ascend/ descend stairs with a reciprocal step through gait pattern LTG Duration 03/09/19 ROM [employer] Developer Goal (LTG) pt will increase hip flexion range to 110 to be able to don /doff sock/shoe independently without increase in pain LTG Duration 03/09/19 LEFS Short Term Goal (STG) Pt will report being able get up/dopwn from a chair or squat down with good body mechanics and no increase in pain. [employer] Developer Goal (LTG) Pt will increase her LEFS score to 60/80 to demonstrate improved ability to carry out functional tasks and ADL's LTG Duration 03/09/19 ambulation Short Term Goal (STG) Pt will be able to demonstrate ambulation without deviations and without aggravation of symptoms. STG Duration 02/06/19 Custodial Goal (LTG) Pt will be able to ambulate around [place] LTG Duration 03/09/19 strength Short Term Goal (STG) pt will be independent and adhere to HEP STG Duration 02/06/19 Custodial Goal (LTG) Pt will increase B LE strength to at least a 4+/5 for improved ability for gait and functional ADL's LTG Duration 03/09/19 Assessment Summary Assessment Pt had improved hip IR, ER and abd ROM after treatment without pain in knee and only gentle stretching in hip as appropriate. She is cont to imrpove with gait and improved with exercise performance with less cueing. She was able to do sit to stand with good control throughout range of motion Physical Therapy Plan Frequency and Duration Frequency of Treatment 2x/Week Duration of Treatment 2 months Plan of Care Start Date 01/07/19 Plan of Care End Date 03/09/19 Next Visit Focus/Plan Next Note Type Treatment Note Next Visit Plan ant elevation & post depression, cont to trace and isolate soft tissues of hip and thigh to improve hip ROM in order to dec knee pain during hip ROM
--- NOTE | 2019-01-28 18:35 | PT.OTN ---
Current Diagnoses Pain in unspecified hip (01/28/19) Physical Therapy Treatment Note PT-OP-A Visit Information Start: 01/07/19 08:07 Freq: Status: Active Protocol: Document 01/28/19 15:17 MT (Rec: 01/28/19 18:32 MT [email or web address]) Out-Patient Physical Therapy Visit Information Visit Information Visit Type Treatment Note Visit Start Time 15:17 Visit Stop Time 15:59 Total Visit Minutes 42 Visit Number 6 Number of STRAP CUTTER Visits 0 PT-OP-B Current Condition Start: 01/07/19 08:07 Freq: Status: Active Protocol: Document 01/07/19 08:08 MT (Rec: 01/07/19 14:52 MT [id number]) Current Condition History of Current Condition Onset Date 12/17/18 Current Complaints s/p anterior L FARHANA History of Current Condition Pt had anterior ttoal hip replacement at [facility] on . Pt was given no precautions from her surgeon. Pt went into chiropractor last monday and said she had her knee put back in place. Intermittent knee pain for past 5-6 years and sometimes doesnt feel like it always lines up correctly. Pt reports swelling in medial knee throughout day. Pt limps during gait with a left lateral trunk lean. Pt feels like she is putting equal weight through her feet now that she has had the surgery. DOes not hurt to sit, but leans towards the right side when sitting to offload L hip. This was the first tiome today that she drove, but is not able to turn over her shoulder completely towards the right. Pt struggles putting on socks and is only able to slip on shoes on L foot. 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 Pt's knee has been bugging her for about 5-6 years after a fall while birding and reports that knee has gotten worse since then. Prior to surgery pt said that knee hurt along patellar tendon. Pt reports that knee has been better since surgery, but still bugs her. She was apprehensive about laying on her L side. Pt reports that she feels a general numbness down the anterior aspect of her L thigh . Treatment Goals Patient/Caregiver Goals Pt's goal is to be able to walk around [place] and walk up stairs with a reciprocal gait pattern, improve her posture, and walk evenly. PT-OP-C Subjective Start: 01/07/19 08:07 Freq: Status: Active Protocol: Document 01/28/19 15:17 MT (Rec: 01/28/19 18:32 MT [id number]) OP-PT Subjective Patient Comments Patient Comments Pt reported that she may have overdone it with the exercises on Monday, as she woke up on monday feeling very sore and did a lot of the sit to stand exercises the previous day. PT-OP-G Mobility & Gait Start: 01/07/19 08:07 Freq: Status: Active Protocol: Document 01/07/19 08:08 MT (Rec: 01/07/19 14:52 MT [id number]) OP Gait Assessment Comments Gait Comments Pt limps when she walks and has a L lateral trunk lean. She has very little push off of the L leg and is not able to get her L hip or knee to fully extend, and instead externally rotated her pelvis to propel forward. Pt performed bilateral mini squat to assess knee alignment . Pt's L knee moves laterally over 4th digit and pt's R knee goes medially beyond 1st toe. PT-OP-J Posture/Palpation/Skin Start: 01/07/19 08:07 Freq: Status: Active Protocol: Document 01/07/19 08:08 MT (Rec: 01/07/19 14:52 MT [id number]) Posture Evaluation Comments Posture Comments Pt sits with a R lateral lean in order to offload L hip during sitting. Skin Assessment Incisional Assessment Incision Appearance/Comments Pt incision on L groin/ant thigh area appears mostly closed up. Only slight pink coloration to inferior aspect of wound. No drainage. residual adhesive surrounding wound. PT-OP-K Range of Motion Start: 01/07/19 08:07 Freq: Status: Active Protocol: Document 01/07/19 08:08 MT (Rec: 01/07/19 14:52 MT [id number]) Hip Goniometric Range of Motion Hip Left Hip ROM WFL Yes Testing Position Supine Flexion w/Knee Flexed 119 Right Hip ROM WFL Yes Testing Position Supine Flexion w/Knee Flexed 92 Knee Goniometric Range of Motion Knee Left Knee ROM WFL Yes Patient Position Sitting Flexion Active (degrees) 144 Extension Active (degrees) 11 Right Knee ROM WFL Yes Patient Position Sitting Flexion Active (degrees) 142 Extension Active (degrees) 0 Knee ROM Limitations Comments Pt lacking 11 degrees of full L knee ext. Pt's knee extension performed in sitting and knee flexion performed in supine. Ankle and Foot Goniometric Range of Motion Ankle and Foot Left Ankle/Foot ROM WFL Yes Testing Position Sitting Dorsiflexion with Knee Flexed 9 Plantarflexion 65 Right Ankle/Foot ROM WFL Yes Testing Position Sitting Dorsiflexion with Knee Flexed 12 Plantarflexion 65 PT-OP-M Strength Start: 01/07/19 08:07 Freq: Status: Active Protocol: Document 01/07/19 08:08 MT (Rec: 01/07/19 14:52 MT [id number]) Hip Strength Hip Manual Muscle Testing Left Flexion (L2) 4- Good- Abduction 3+ Fair+ External Rotation 3+ Fair+ Internal Rotation 3+ Fair+ Right Flexion (L2) 4 Good Abduction 4 Good Adduction 4 Good External Rotation 4- Good- Internal Rotation 4- Good- Comments R abduction tested in supine b /c pt unable to tolerate L sidelying Knee Strength Knee Manual Muscle Testing Left Flexion (S2) 4 Good Extension (L3) 4 Good Right Flexion (S2) 4 Good Extension (L3) 4+ Good+ Ankle/Foot Strength Ankle and Foot Manual Muscle Testing Left Dorsiflexion (L4) 4+ Good+ Plantarflexion (S1) 4+ Good+ Right Dorsiflexion (L4) 5 Normal Plantarflexion (S1) 5 Normal PT-OP-Q Treatments Start: 01/07/19 08:07 Freq: Status: Active Protocol: Document 01/28/19 15:17 MT (Rec: 01/28/19 18:32 MT [email or web address]) Cardio Equipment Recumbent Elliptical (Biodex) Duration (Minutes) 6 Resistance 7 Seat Position 5 Gym Equipment Shuttle Balance red clips Details fwd& side: WBOS balancing & wtshift & NBOS balance Therapeutic Exercises Standing Exercises TKE Side left Resistance L3 Reps/Minutes 15 squat Standing Exercise Name sit to stands Reps/Minutes 15 Comments w/ L1 aroud knees to cue for avoiding IR of hips hip abd Standing Exercise Name 1.standing hip abd + ext 2. SLS hip hikes Resistance L1 Comments band at knees for long leg exercise Neuro Re-Education Treatment Other Activities PNF Details pelvic ant elevation and post depression Comments 1. rhythmic initiation 2. combination of isotonics 3. concentric reversals PT-OP-T Assessment and Plan Start: 01/07/19 08:07 Freq: Status: Active Protocol: Document 01/28/19 15:17 MT (Rec: 01/28/19 18:32 MT [email or web address]) Physical Therapy Assessment Goals stairs Short Term Goal (STG) pt will be able to equally accept weight onto her L and R LE in standing STG Duration 02/06/19 Mcfp Goal (LTG) pt will be able to ascend/ descend stairs with a reciprocal step through gait pattern LTG Duration 03/09/19 ROM Mcfp Goal (LTG) pt will increase hip flexion range to 110 to be able to don /doff sock/shoe independently without increase in pain LTG Duration 03/09/19 LEFS Short Term Goal (STG) Pt will report being able get up/dopwn from a chair or squat down with good body mechanics and no increase in pain. Mcfp Goal (LTG) Pt will increase her LEFS score to 60/80 to demonstrate improved ability to carry out functional tasks and ADL's LTG Duration 03/09/19 ambulation Short Term Goal (STG) Pt will be able to demonstrate ambulation without deviations and without aggravation of symptoms. STG Duration 02/06/19 Mcfp Goal (LTG) Pt will be able to ambulate around [place] LTG Duration 03/09/19 strength Short Term Goal (STG) pt will be independent and adhere to HEP STG Duration 02/06/19 Mcfp Goal (LTG) Pt will increase B LE strength to at least a 4+/5 for improved ability for gait and functional ADL's LTG Duration 03/09/19 Assessment Summary Assessment Pt had improved toleration of standing strengthenign exercises with less complaints of knee pain. Corrected pt form with sit to stand exercise with cueing for avoiding IR of hips during squating motion. Introduced SLS hip hikes to pt, which pt tolerated well but still required cueing for proper motion. Pt was able to tolerate PNF and had increased push off and less transverse rotation of her pelvis during gait after PNF. Physical Therapy Plan Frequency and Duration Frequency of Treatment 2x/Week Duration of Treatment 2 months Plan of Care Start Date 01/07/19 Plan of Care End Date 03/09/19 Next Visit Focus/Plan Next Note Type Treatment Note Next Visit Plan ant elevation & post depression, cont to trace and isolate soft tissues of hip and thigh to improve hip ROM in order to dec knee pain during hip ROM, progress to more standing hip strengthening to toleration
--- NOTE | 2019-01-30 18:42 | PT.OTN ---
Current Diagnoses Pain in unspecified hip (01/30/19) Physical Therapy Treatment Note PT-OP-A Visit Information Start: 01/07/19 08:07 Freq: Status: Active Protocol: Document 01/30/19 14:30 MT (Rec: 01/30/19 18:25 MT [id number]) Out-Patient Physical Therapy Visit Information Visit Information Visit Type Treatment Note Visit Start Time 14:30 Visit Stop Time 15:13 Total Visit Minutes 43 Visit Number 7 Number of CASTING CARRIER Visits 0 PT-OP-B Current Condition Start: 01/07/19 08:07 Freq: Status: Active Protocol: Document 01/07/19 08:08 MT (Rec: 01/07/19 14:52 MT [id number]) Current Condition History of Current Condition Onset Date 12/17/18 Current Complaints s/p anterior L FARHANA History of Current Condition Pt had anterior ttoal hip replacement at [facility] on . Pt was given no precautions from her surgeon. Pt went into chiropractor last monday and said she had her knee put back in place. Intermittent knee pain for past 5-6 years and sometimes doesnt feel like it always lines up correctly. Pt reports swelling in medial knee throughout day. Pt limps during gait with a left lateral trunk lean. Pt feels like she is putting equal weight through her feet now that she has had the surgery. DOes not hurt to sit, but leans towards the right side when sitting to offload L hip. This was the first tiome today that she drove, but is not able to turn over her shoulder completely towards the right. Pt struggles putting on socks and is only able to slip on shoes on L foot. 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 Pt's knee has been bugging her for about 5-6 years after a fall while birding and reports that knee has gotten worse since then. Prior to surgery pt said that knee hurt along patellar tendon. Pt reports that knee has been better since surgery, but still bugs her. She was apprehensive about laying on her L side. Pt reports that she feels a general numbness down the anterior aspect of her L thigh . Treatment Goals Patient/Caregiver Goals Pt's goal is to be able to walk around [place] and walk up stairs with a reciprocal gait pattern, improve her posture, and walk evenly. PT-OP-C Subjective Start: 01/07/19 08:07 Freq: Status: Active Protocol: Document 01/30/19 14:30 MT (Rec: 01/30/19 18:25 MT [id number]) OP-PT Subjective Patient Comments Patient Comments pt reports that she feels like her knee is improving because she has not had the sensation of her knee misaligning for 2 days, when she normally feels it multiple times a day. She has been compliant wiht her exercise program Patient Reported Progress Improving PT-OP-G Mobility & Gait Start: 01/07/19 08:07 Freq: Status: Active Protocol: Document 01/07/19 08:08 MT (Rec: 01/07/19 14:52 MT [id number]) OP Gait Assessment Comments Gait Comments Pt limps when she walks and has a L lateral trunk lean. She has very little push off of the L leg and is not able to get her L hip or knee to fully extend, and instead externally rotated her pelvis to propel forward. Pt performed bilateral mini squat to assess knee alignment . Pt's L knee moves laterally over 4th digit and pt's R knee goes medially beyond 1st toe. PT-OP-J Posture/Palpation/Skin Start: 01/07/19 08:07 Freq: Status: Active Protocol: Document 01/07/19 08:08 MT (Rec: 01/07/19 14:52 MT [id number]) Posture Evaluation Comments Posture Comments Pt sits with a R lateral lean in order to offload L hip during sitting. Skin Assessment Incisional Assessment Incision Appearance/Comments Pt incision on L groin/ant thigh area appears mostly closed up. Only slight pink coloration to inferior aspect of wound. No drainage. residual adhesive surrounding wound. PT-OP-K Range of Motion Start: 01/07/19 08:07 Freq: Status: Active Protocol: Document 01/07/19 08:08 MT (Rec: 01/07/19 14:52 MT [id number]) Hip Goniometric Range of Motion Hip Left Hip ROM WFL Yes Testing Position Supine Flexion w/Knee Flexed 119 Right Hip ROM WFL Yes Testing Position Supine Flexion w/Knee Flexed 92 Knee Goniometric Range of Motion Knee Left Knee ROM WFL Yes Patient Position Sitting Flexion Active (degrees) 144 Extension Active (degrees) 11 Right Knee ROM WFL Yes Patient Position Sitting Flexion Active (degrees) 142 Extension Active (degrees) 0 Knee ROM Limitations Comments Pt lacking 11 degrees of full L knee ext. Pt's knee extension performed in sitting and knee flexion performed in supine. Ankle and Foot Goniometric Range of Motion Ankle and Foot Left Ankle/Foot ROM WFL Yes Testing Position Sitting Dorsiflexion with Knee Flexed 9 Plantarflexion 65 Right Ankle/Foot ROM WFL Yes Testing Position Sitting Dorsiflexion with Knee Flexed 12 Plantarflexion 65 PT-OP-M Strength Start: 01/07/19 08:07 Freq: Status: Active Protocol: Document 01/07/19 08:08 MT (Rec: 01/07/19 14:52 MT [id number]) Hip Strength Hip Manual Muscle Testing Left Flexion (L2) 4- Good- Abduction 3+ Fair+ External Rotation 3+ Fair+ Internal Rotation 3+ Fair+ Right Flexion (L2) 4 Good Abduction 4 Good Adduction 4 Good External Rotation 4- Good- Internal Rotation 4- Good- Comments R abduction tested in supine b /c pt unable to tolerate L sidelying Knee Strength Knee Manual Muscle Testing Left Flexion (S2) 4 Good Extension (L3) 4 Good Right Flexion (S2) 4 Good Extension (L3) 4+ Good+ Ankle/Foot Strength Ankle and Foot Manual Muscle Testing Left Dorsiflexion (L4) 4+ Good+ Plantarflexion (S1) 4+ Good+ Right Dorsiflexion (L4) 5 Normal Plantarflexion (S1) 5 Normal PT-OP-Q Treatments Start: 01/07/19 08:07 Freq: Status: Active Protocol: Document 01/30/19 14:30 MT (Rec: 01/30/19 18:25 MT [id number]) Cardio Equipment Recumbent Elliptical (Biodex) Duration (Minutes) 6 Resistance 8 Seat Position 5 Gym Equipment Shuttle Balance red clips Details fwd& side: WBOS balancing & wtshift & NBOS/semitandem balance Therapeutic Exercises Supine Exercises Hip ER Supine Exercise Name figure 4 stretch Side left Comments added to HEP bridge Supine Exercise Name w/alt marching Side bilateral Reps/Minutes 10 Standing Exercises squat Standing Exercise Name sit to stands Reps/Minutes 15 Comments w/ L1 aroud knees to cue for avoiding IR of hips hip abd Standing Exercise Name 1.standing hip abd + ext 2. SLS hip hikes Resistance L1 Comments band at knees for long leg exercise side stepping Resistance L1 at ankles Reps/Minutes 20 each direction Manual Therapy Treatment Soft Tissue Mobilization w/hip abd Body Location adductors, med quads Mobilization Type Strumming,Sustained Pressure Body Position Supine Comments AAROM during mobs into ER PT-OP-T Assessment and Plan Start: 01/07/19 08:07 Freq: Status: Active Protocol: Document 01/30/19 14:30 MT (Rec: 01/30/19 18:25 MT [id number]) Physical Therapy Assessment Goals stairs Short Term Goal (STG) pt will be able to equally accept weight onto her L and R LE in standing STG Duration 02/06/19 Computer Systems Design Analyst Goal (LTG) pt will be able to ascend/ descend stairs with a reciprocal step through gait pattern LTG Duration 03/09/19 ROM Fci Goal (LTG) pt will increase hip flexion range to 110 to be able to don /doff sock/shoe independently without increase in pain LTG Duration 03/09/19 LEFS Short Term Goal (STG) Pt will report being able get up/dopwn from a chair or squat down with good body mechanics and no increase in pain. Fci Goal (LTG) Pt will increase her LEFS score to 60/80 to demonstrate improved ability to carry out functional tasks and ADL's LTG Duration 03/09/19 ambulation Short Term Goal (STG) Pt will be able to demonstrate ambulation without deviations and without aggravation of symptoms. STG Duration 02/06/19 Computer Systems Design Analyst Goal (LTG) Pt will be able to ambulate around [place] LTG Duration 03/09/19 strength Short Term Goal (STG) pt will be independent and adhere to HEP STG Duration 02/06/19 Computer Systems Design Analyst Goal (LTG) Pt will increase B LE strength to at least a 4+/5 for improved ability for gait and functional ADL's LTG Duration 03/09/19 Assessment Summary Assessment Pt demonstrated that she reuqired less cueing for her HEP exercises. She still struggles with avoiding pevic drop in SLS. She reported that her adductors continue to feel tight, but this decreased with STM to medial thigh. Pt was also given stretch to do at home for when she feels tight. Looked at pt's scar. It is almost entirely closed and once it is , she will benefit from scar mobilizations to decrease adhesions in that area. Physical Therapy Plan Frequency and Duration Frequency of Treatment 2x/Week Duration of Treatment 2 months Plan of Care Start Date 01/07/19 Plan of Care End Date 03/09/19 Next Visit Focus/Plan Next Note Type Treatment Note Next Visit Plan ant elevation & post depression, cont to trace and isolate soft tissues of hip and thigh to improve hip ROM in order to dec knee pain during hip ROM, progress to more standing hip strengthening to toleration
--- NOTE | 2019-02-04 18:34 | PT.OTN ---
Current Diagnoses Pain in unspecified hip (02/04/19) Physical Therapy Treatment Note PT-OP-A Visit Information Start: 01/07/19 08:07 Freq: Status: Active Protocol: Document 02/04/19 15:15 [facility] (Rec: 02/04/19 18:31 [facility] [id number]) Out-Patient Physical Therapy Visit Information Visit Information Visit Type Treatment Note Visit Start Time 15:18 Visit Stop Time 16:00 Total Visit Minutes 42 Visit Number 8 Number of OFFSET PLATEMAKER Visits 0 PT-OP-B Current Condition Start: 01/07/19 08:07 Freq: Status: Active Protocol: Document 01/07/19 08:08 MT (Rec: 01/07/19 14:52 MT [id number]) Current Condition History of Current Condition Onset Date 12/17/18 Current Complaints s/p anterior L FARHANA History of Current Condition Pt had anterior ttoal hip replacement at [facility] on . Pt was given no precautions from her surgeon. Pt went into chiropractor last monday and said she had her knee put back in place. Intermittent knee pain for past 5-6 years and sometimes doesnt feel like it always lines up correctly. Pt reports swelling in medial knee throughout day. Pt limps during gait with a left lateral trunk lean. Pt feels like she is putting equal weight through her feet now that she has had the surgery. DOes not hurt to sit, but leans towards the right side when sitting to offload L hip. This was the first tiome today that she drove, but is not able to turn over her shoulder completely towards the right. Pt struggles putting on socks and is only able to slip on shoes on L foot. 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 Pt's knee has been bugging her for about 5-6 years after a fall while birding and reports that knee has gotten worse since then. Prior to surgery pt said that knee hurt along patellar tendon. Pt reports that knee has been better since surgery, but still bugs her. She was apprehensive about laying on her L side. Pt reports that she feels a general numbness down the anterior aspect of her L thigh . Treatment Goals Patient/Caregiver Goals Pt's goal is to be able to walk around [place] and walk up stairs with a reciprocal gait pattern, improve her posture, and walk evenly. PT-OP-C Subjective Start: 01/07/19 08:07 Freq: Status: Active Protocol: Document 02/04/19 15:15 LR (Rec: 02/04/19 18:31 [facility] [id number]) OP-PT Subjective Patient Comments Patient Comments Pt reports she has been inc her walking to 3 laps of [email or web address] [place]. She notices some sorenss in L thigh after walking but feels good during. reports sometimes she feels like the sit to stands somtiems bother her knee. PT-OP-G Mobility & Gait Start: 01/07/19 08:07 Freq: Status: Active Protocol: Document 01/07/19 08:08 MT (Rec: 01/07/19 14:52 MT [id number]) OP Gait Assessment Comments Gait Comments Pt limps when she walks and has a L lateral trunk lean. She has very little push off of the L leg and is not able to get her L hip or knee to fully extend, and instead externally rotated her pelvis to propel forward. Pt performed bilateral mini squat to assess knee alignment . Pt's L knee moves laterally over 4th digit and pt's R knee goes medially beyond 1st toe. PT-OP-J Posture/Palpation/Skin Start: 01/07/19 08:07 Freq: Status: Active Protocol: Document 01/07/19 08:08 MT (Rec: 01/07/19 14:52 MT [id number]) Posture Evaluation Comments Posture Comments Pt sits with a R lateral lean in order to offload L hip during sitting. Skin Assessment Incisional Assessment Incision Appearance/Comments Pt incision on L groin/ant thigh area appears mostly closed up. Only slight pink coloration to inferior aspect of wound. No drainage. residual adhesive surrounding wound. PT-OP-K Range of Motion Start: 01/07/19 08:07 Freq: Status: Active Protocol: Document 01/07/19 08:08 MT (Rec: 01/07/19 14:52 MT [id number]) Hip Goniometric Range of Motion Hip Left Hip ROM WFL Yes Testing Position Supine Flexion w/Knee Flexed 119 Right Hip ROM WFL Yes Testing Position Supine Flexion w/Knee Flexed 92 Knee Goniometric Range of Motion Knee Left Knee ROM WFL Yes Patient Position Sitting Flexion Active (degrees) 144 Extension Active (degrees) 11 Right Knee ROM WFL Yes Patient Position Sitting Flexion Active (degrees) 142 Extension Active (degrees) 0 Knee ROM Limitations Comments Pt lacking 11 degrees of full L knee ext. Pt's knee extension performed in sitting and knee flexion performed in supine. Ankle and Foot Goniometric Range of Motion Ankle and Foot Left Ankle/Foot ROM WFL Yes Testing Position Sitting Dorsiflexion with Knee Flexed 9 Plantarflexion 65 Right Ankle/Foot ROM WFL Yes Testing Position Sitting Dorsiflexion with Knee Flexed 12 Plantarflexion 65 PT-OP-M Strength Start: 01/07/19 08:07 Freq: Status: Active Protocol: Document 01/07/19 08:08 MT (Rec: 01/07/19 14:52 [facility] [id number]) Hip Strength Hip Manual Muscle Testing Left Flexion (L2) 4- Good- Abduction 3+ Fair+ External Rotation 3+ Fair+ Internal Rotation 3+ Fair+ Right Flexion (L2) 4 Good Abduction 4 Good Adduction 4 Good External Rotation 4- Good- Internal Rotation 4- Good- Comments R abduction tested in supine b /c pt unable to tolerate L sidelying Knee Strength Knee Manual Muscle Testing Left Flexion (S2) 4 Good Extension (L3) 4 Good Right Flexion (S2) 4 Good Extension (L3) 4+ Good+ Ankle/Foot Strength Ankle and Foot Manual Muscle Testing Left Dorsiflexion (L4) 4+ Good+ Plantarflexion (S1) 4+ Good+ Right Dorsiflexion (L4) 5 Normal Plantarflexion (S1) 5 Normal PT-OP-Q Treatments Start: 01/07/19 08:07 Freq: Status: Active Protocol: Document 02/04/19 15:15 [facility] (Rec: 02/04/19 18:31 [facility] [id number]) Cardio Equipment Recumbent Elliptical (Biodex) Duration (Minutes) 6 Resistance 8 Seat Position 5 Therapeutic Exercises Supine Exercises hip flex Supine Exercise Name isometric for core stability Side left Reps/Minutes [id number] Sidelying Exercises ER Sidelying Exercise Name clamshell Side left Equipment Used L1 Reps/Minutes 10 Standing Exercises squat Standing Exercise Name sit to stands Comments w/ L3 aroud knees to cue for avoiding IR of hips Manual Therapy Treatment Soft Tissue Mobilization w/hip flex Body Location iliacus & inguinal ligament Mobilization Type Strumming,Sustained Pressure Comments c/r into hip flex w/hip abd Body Location adductors Mobilization Type Strumming,Sustained Pressure Body Position Supine w/hip rotation Body Location L iliacus & adductors & glutes /piriformis Mobilization Type Rolling,Strumming Comments supine & S/L Neuro Re-Education Treatment Other Activities PNF Details ant elevation & post dep Comments 1. rhythmic initiation 2. COI progressed to addition of LE patterns 3. reversals of concentrics pelvic girdle patterns progressed to addition of LE patterns PT-OP-T Assessment and Plan Start: 01/07/19 08:07 Freq: Status: Active Protocol: Document 02/04/19 15:15 [facility] (Rec: 02/04/19 18:31 [facility] [id number]) Physical Therapy Assessment Goals stairs Short Term Goal (STG) pt will be able to equally accept weight onto her L and R LE in standing STG Duration 02/06/19 Detention Goal (LTG) pt will be able to ascend/ descend stairs with a reciprocal step through gait pattern LTG Duration 03/09/19 ROM [employer] Goal (LTG) pt will increase hip flexion range to 110 to be able to don /doff sock/shoe independently without increase in pain LTG Duration 03/09/19 LEFS Short Term Goal (STG) Pt will report being able get up/dopwn from a chair or squat down with good body mechanics and no increase in pain. [employer] Goal (LTG) Pt will increase her LEFS score to 60/80 to demonstrate improved ability to carry out functional tasks and ADL's LTG Duration 03/09/19 ambulation Short Term Goal (STG) Pt will be able to demonstrate ambulation without deviations and without aggravation of symptoms. STG Duration 02/06/19 [employer] Officer Goal (LTG) Pt will be able to ambulate around [place] LTG Duration 03/09/19 strength Short Term Goal (STG) pt will be independent and adhere to HEP STG Duration 02/06/19 Detention Goal (LTG) Pt will increase B LE strength to at least a 4+/5 for improved ability for gait and functional ADL's LTG Duration 03/09/19 Assessment Summary Assessment Pt had improved hip abd, hip flex and hip ER after manual treatment today. She was able to bend her leg as needed to don/doff shoes after manual treatment. Improved motion into all planes with dec knee pain also. Pt requierd cueing only to use lvl 1 band for clamshells at home and did requiere cues for form with squat exercise. Physical Therapy Plan Frequency and Duration Frequency of Treatment 2x/Week Duration of Treatment 2 months Plan of Care Start Date 01/07/19 Plan of Care End Date 03/09/19 Next Visit Focus/Plan Next Note Type Treatment Note Next Visit Plan cont to work on PNF patterns, work on soft tissue of hip and thigh to improve ROM and dec knee pain with hip motions, balance, wt shifting & acceptance, review squat
--- NOTE | 2019-02-06 18:41 | PT.OTN ---
Current Diagnoses Pain in unspecified hip (02/06/19) Physical Therapy Treatment Note PT-OP-A Visit Information Start: 01/07/19 08:07 Freq: Status: Active Protocol: Document 02/06/19 14:32 MT (Rec: 02/06/19 18:19 MT [id number]) Out-Patient Physical Therapy Visit Information Visit Information Visit Type Treatment Note Visit Start Time 14:32 Visit Stop Time 15:15 Total Visit Minutes 43 Visit Number 9 Number of API ARCHITECT Visits 0 PT-OP-B Current Condition Start: 01/07/19 08:07 Freq: Status: Active Protocol: Document 01/07/19 08:08 MT (Rec: 01/07/19 14:52 MT [id number]) Current Condition History of Current Condition Onset Date 12/17/18 Current Complaints s/p anterior L FARHANA History of Current Condition Pt had anterior ttoal hip replacement at [facility] on . Pt was given no precautions from her surgeon. Pt went into chiropractor last monday and said she had her knee put back in place. Intermittent knee pain for past 5-6 years and sometimes doesnt feel like it always lines up correctly. Pt reports swelling in medial knee throughout day. Pt limps during gait with a left lateral trunk lean. Pt feels like she is putting equal weight through her feet now that she has had the surgery. DOes not hurt to sit, but leans towards the right side when sitting to offload L hip. This was the first tiome today that she drove, but is not able to turn over her shoulder completely towards the right. Pt struggles putting on socks and is only able to slip on shoes on L foot. 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 Pt's knee has been bugging her for about 5-6 years after a fall while birding and reports that knee has gotten worse since then. Prior to surgery pt said that knee hurt along patellar tendon. Pt reports that knee has been better since surgery, but still bugs her. She was apprehensive about laying on her L side. Pt reports that she feels a general numbness down the anterior aspect of her L thigh . Treatment Goals Patient/Caregiver Goals Pt's goal is to be able to walk around [place] and walk up stairs with a reciprocal gait pattern, improve her posture, and walk evenly. PT-OP-C Subjective Start: 01/07/19 08:07 Freq: Status: Active Protocol: Document 02/06/19 14:32 MT (Rec: 02/06/19 18:19 MT [id number]) OP-PT Subjective Patient Comments Patient Comments Pt reports that she had some questions about her exercises re: clamshells, squats, and hip hikes. She reports that she is trying to incorporate the corrections to her gait, but does not feel like her glute is porperly activating. She reports that she has been able to get her socks and shoes on by herslef now. PT-OP-G Mobility & Gait Start: 01/07/19 08:07 Freq: Status: Active Protocol: Document 01/07/19 08:08 MT (Rec: 01/07/19 14:52 MT [id number]) OP Gait Assessment Comments Gait Comments Pt limps when she walks and has a L lateral trunk lean. She has very little push off of the L leg and is not able to get her L hip or knee to fully extend, and instead externally rotated her pelvis to propel forward. Pt performed bilateral mini squat to assess knee alignment . Pt's L knee moves laterally over 4th digit and pt's R knee goes medially beyond 1st toe. PT-OP-J Posture/Palpation/Skin Start: 01/07/19 08:07 Freq: Status: Active Protocol: Document 01/07/19 08:08 MT (Rec: 01/07/19 14:52 MT [id number]) Posture Evaluation Comments Posture Comments Pt sits with a R lateral lean in order to offload L hip during sitting. Skin Assessment Incisional Assessment Incision Appearance/Comments Pt incision on L groin/ant thigh area appears mostly closed up. Only slight pink coloration to inferior aspect of wound. No drainage. residual adhesive surrounding wound. PT-OP-K Range of Motion Start: 01/07/19 08:07 Freq: Status: Active Protocol: Document 01/07/19 08:08 MT (Rec: 01/07/19 14:52 MT [id number]) Hip Goniometric Range of Motion Hip Left Hip ROM WFL Yes Testing Position Supine Flexion w/Knee Flexed 119 Right Hip ROM WFL Yes Testing Position Supine Flexion w/Knee Flexed 92 Knee Goniometric Range of Motion Knee Left Knee ROM WFL Yes Patient Position Sitting Flexion Active (degrees) 144 Extension Active (degrees) 11 Right Knee ROM WFL Yes Patient Position Sitting Flexion Active (degrees) 142 Extension Active (degrees) 0 Knee ROM Limitations Comments Pt lacking 11 degrees of full L knee ext. Pt's knee extension performed in sitting and knee flexion performed in supine. Ankle and Foot Goniometric Range of Motion Ankle and Foot Left Ankle/Foot ROM WFL Yes Testing Position Sitting Dorsiflexion with Knee Flexed 9 Plantarflexion 65 Right Ankle/Foot ROM WFL Yes Testing Position Sitting Dorsiflexion with Knee Flexed 12 Plantarflexion 65 PT-OP-M Strength Start: 01/07/19 08:07 Freq: Status: Active Protocol: Document 01/07/19 08:08 MT (Rec: 01/07/19 14:52 MT [id number]) Hip Strength Hip Manual Muscle Testing Left Flexion (L2) 4- Good- Abduction 3+ Fair+ External Rotation 3+ Fair+ Internal Rotation 3+ Fair+ Right Flexion (L2) 4 Good Abduction 4 Good Adduction 4 Good External Rotation 4- Good- Internal Rotation 4- Good- Comments R abduction tested in supine b /c pt unable to tolerate L sidelying Knee Strength Knee Manual Muscle Testing Left Flexion (S2) 4 Good Extension (L3) 4 Good Right Flexion (S2) 4 Good Extension (L3) 4+ Good+ Ankle/Foot Strength Ankle and Foot Manual Muscle Testing Left Dorsiflexion (L4) 4+ Good+ Plantarflexion (S1) 4+ Good+ Right Dorsiflexion (L4) 5 Normal Plantarflexion (S1) 5 Normal PT-OP-Q Treatments Start: 01/07/19 08:07 Freq: Status: Active Protocol: Document 02/06/19 14:32 MT (Rec: 02/06/19 18:19 MT [id number]) Cardio Equipment Recumbent Elliptical (Biodex) Duration (Minutes) 6 Resistance 8 Seat Position 5 Therapeutic Exercises Sidelying Exercises ER Sidelying Exercise Name clamshell Side left Equipment Used L1 Reps/Minutes 10 Standing Exercises TKE Side left Resistance L2 squat Standing Exercise Name squat over chair Reps/Minutes 20 Comments w/ L3 aroud knees to cue for avoiding IR of hips hip abd Standing Exercise Name SLS hip hikes Reps/Minutes 20B Comments with knee flexed forward for dec lumbar involvement Manual Therapy Treatment Soft Tissue Mobilization w/hip rotation Body Location L adductors & glutes/ piriformis Mobilization Type Rolling,Strumming Neuro Re-Education Treatment Other Activities PNF Details ant elevation & post dep Comments 1. rhythmic initiation 2. COI progressed to addition of LE patterns 3. reversals of concentrics pelvic girdle patterns progressed to addition of LE patterns PT-OP-T Assessment and Plan Start: 01/07/19 08:07 Freq: Status: Active Protocol: Document 02/06/19 14:32 MT (Rec: 02/06/19 18:19 MT [id number]) Physical Therapy Assessment Goals stairs Short Term Goal (STG) pt will be able to equally accept weight onto her L and R LE in standing STG Duration 02/06/19 Group Home Goal (LTG) pt will be able to ascend/ descend stairs with a reciprocal step through gait pattern LTG Duration 03/09/19 ROM [employer] Sales Goal (LTG) pt will increase hip flexion range to 110 to be able to don /doff sock/shoe independently without increase in pain LTG Duration 03/09/19 LEFS Short Term Goal (STG) Pt will report being able get up/dopwn from a chair or squat down with good body mechanics and no increase in pain. Group Home Goal (LTG) Pt will increase her LEFS score to 60/80 to demonstrate improved ability to carry out functional tasks and ADL's LTG Duration 03/09/19 ambulation Short Term Goal (STG) Pt will be able to demonstrate ambulation without deviations and without aggravation of symptoms. STG Duration 02/06/19 [employer] Goal (LTG) Pt will be able to ambulate around [place] LTG Duration 03/09/19 strength Short Term Goal (STG) pt will be independent and adhere to HEP STG Duration 02/06/19 [employer] Goal (LTG) Pt will increase B LE strength to at least a 4+/5 for improved ability for gait and functional ADL's LTG Duration 03/09/19 Assessment Summary Assessment Pt continues to require cueing for her exercises and does not seem to remember all the corrections that she was previously given. Reviewed the HEP with pt in order to ensure proper form. Pt was able to perform PNF, but required a lot of cueing for proper pevlic motion. Pt had increased L hip ER following STM and was able to bedn her leg up to be able to demonstrate tying her shoe after manual therapy. Physical Therapy Plan Frequency and Duration Frequency of Treatment 2x/Week Duration of Treatment 2 months Plan of Care Start Date 01/07/19 Plan of Care End Date 03/09/19 Next Visit Focus/Plan Next Note Type Treatment Note Next Visit Plan cont to work on PNF patterns, work on soft tissue of hip and thigh to improve ROM and dec knee pain with hip motions, balance, wt shifting & acceptance, review squat
--- NOTE | 2019-02-11 15:39 | PT.OPPN ---
Current Diagnoses Pain in unspecified hip (02/14/19) Physical Therapy Progress Note PT-OP-A Visit Information Start: 01/07/19 08:07 Freq: Status: Active Protocol: Document 02/11/19 14:45 LR (Rec: 02/11/19 16:11 [facility] [id number]) Out-Patient Physical Therapy Visit Information Visit Information Visit Type Progress Note Visit Start Time 14:33 Visit Stop Time 15:13 Total Visit Minutes 40 Visit Number 10 Number of CREDIT ASSESSMENT ANALYST Visits 0 PT-OP-B Current Condition Start: 01/07/19 08:07 Freq: Status: Active Protocol: Document 01/07/19 08:08 MT (Rec: 01/07/19 14:52 MT [id number]) Current Condition History of Current Condition Onset Date 12/17/18 Current Complaints s/p anterior L FARHANA History of Current Condition Pt had anterior ttoal hip replacement at [facility] on . Pt was given no precautions from her surgeon. Pt went into chiropractor last monday and said she had her knee put back in place. Intermittent knee pain for past 5-6 years and sometimes doesnt feel like it always lines up correctly. Pt reports swelling in medial knee throughout day. Pt limps during gait with a left lateral trunk lean. Pt feels like she is putting equal weight through her feet now that she has had the surgery. DOes not hurt to sit, but leans towards the right side when sitting to offload L hip. This was the first tiome today that she drove, but is not able to turn over her shoulder completely towards the right. Pt struggles putting on socks and is only able to slip on shoes on L foot. 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 Pt's knee has been bugging her for about 5-6 years after a fall while birding and reports that knee has gotten worse since then. Prior to surgery pt said that knee hurt along patellar tendon. Pt reports that knee has been better since surgery, but still bugs her. She was apprehensive about laying on her L side. Pt reports that she feels a general numbness down the anterior aspect of her L thigh . Treatment Goals Patient/Caregiver Goals Pt's goal is to be able to walk around [place] and walk up stairs with a reciprocal gait pattern, improve her posture, and walk evenly. PT-OP-C Subjective Start: 01/07/19 08:07 Freq: Status: Active Protocol: Document 02/11/19 14:45 [facility] (Rec: 02/11/19 16:11 LR [id number]) OP-PT Subjective Patient Comments Patient Comments Pt reports she walked half of the long part of the [employer] [place], and the entire the other side. PT-OP-G Mobility & Gait Start: 01/07/19 08:07 Freq: Status: Active Protocol: Document 01/07/19 08:08 MT (Rec: 01/07/19 14:52 MT [id number]) OP Gait Assessment Comments Gait Comments Pt limps when she walks and has a L lateral trunk lean. She has very little push off of the L leg and is not able to get her L hip or knee to fully extend, and instead externally rotated her pelvis to propel forward. Pt performed bilateral mini squat to assess knee alignment . Pt's L knee moves laterally over 4th digit and pt's R knee goes medially beyond 1st toe. PT-OP-J Posture/Palpation/Skin Start: 01/07/19 08:07 Freq: Status: Active Protocol: Document 01/07/19 08:08 MT (Rec: 01/07/19 14:52 MT [id number]) Posture Evaluation Comments Posture Comments Pt sits with a R lateral lean in order to offload L hip during sitting. Skin Assessment Incisional Assessment Incision Appearance/Comments Pt incision on L groin/ant thigh area appears mostly closed up. Only slight pink coloration to inferior aspect of wound. No drainage. residual adhesive surrounding wound. PT-OP-K Range of Motion Start: 01/07/19 08:07 Freq: Status: Active Protocol: Document 01/07/19 08:08 MT (Rec: 01/07/19 14:52 MT [id number]) Hip Goniometric Range of Motion Hip Measured in Degrees Left Hip ROM WFL Yes Testing Position Supine Flexion w/Knee Flexed 119 Right Hip ROM WFL Yes Testing Position Supine Flexion w/Knee Flexed 92 Knee Goniometric Range of Motion Knee Measured in Degrees Left Knee ROM WFL Yes Patient Position Sitting Flexion Active (degrees) 144 Extension Active (degrees) 11 Right Knee ROM WFL Yes Patient Position Sitting Flexion Active (degrees) 142 Extension Active (degrees) 0 Knee ROM Limitations Comments Pt lacking 11 degrees of full L knee ext. Pt's knee extension performed in sitting and knee flexion performed in supine. Ankle and Foot Goniometric Range of Motion Ankle and Foot Measured in Degrees Left Ankle/Foot ROM WFL Yes Testing Position Sitting Dorsiflexion with Knee Flexed 9 Plantarflexion 65 Right Ankle/Foot ROM WFL Yes Testing Position Sitting Dorsiflexion with Knee Flexed 12 Plantarflexion 65 PT-OP-M Strength Start: 01/07/19 08:07 Freq: Status: Active Protocol: Document 01/07/19 08:08 MT (Rec: 01/07/19 14:52 MT [id number]) Hip Strength Hip Manual Muscle Testing Left Flexion (L2) 4- Good- Abduction 3+ Fair+ External Rotation 3+ Fair+ Internal Rotation 3+ Fair+ Right Flexion (L2) 4 Good Abduction 4 Good Adduction 4 Good External Rotation 4- Good- Internal Rotation 4- Good- Comments R abduction tested in supine b /c pt unable to tolerate L sidelying Knee Strength Knee Manual Muscle Testing Left Flexion (S2) 4 Good Extension (L3) 4 Good Right Flexion (S2) 4 Good Extension (L3) 4+ Good+ Ankle/Foot Strength Ankle and Foot Manual Muscle Testing Left Dorsiflexion (L4) 4+ Good+ Plantarflexion (S1) 4+ Good+ Right Dorsiflexion (L4) 5 Normal Plantarflexion (S1) 5 Normal PT-OP-T Assessment and Plan Start: 01/07/19 08:07 Freq: Status: Active Protocol: Document 02/11/19 14:45 [facility] (Rec: 02/11/19 16:11 [facility] [id number]) Physical Therapy Assessment Goals stairs Short Term Goal (STG) pt will be able to equally accept weight onto her L and R LE in standing STG Duration achieved Tool Room Gear Machine Operator Goal (LTG) pt will be able to ascend/ descend stairs with a reciprocal step through gait pattern LTG Duration 03/09/19 ROM Tool Room Gear Machine Operator Goal (LTG) pt will increase hip flexion range to 110 to be able to don /doff sock/shoe independently without increase in pain LTG Duration achieved LEFS Short Term Goal (STG) Pt will report being able get up/dopwn from a chair or squat down with good body mechanics and no increase in pain. STG Duration achieved Tool Room Gear Machine Operator Goal (LTG) Pt will increase her LEFS score to 60/80 to demonstrate improved ability to carry out functional tasks and ADL's LTG Duration 03/09/19 ambulation Short Term Goal (STG) Pt will be able to demonstrate ambulation without deviations and without aggravation of symptoms. 02/11 improving mild deviations STG Duration 02/06/19 Fdc Goal (LTG) Pt will be able to ambulate around [place] LTG Duration 03/09/19 strength Short Term Goal (STG) pt will be independent and adhere to HEP STG Duration achieved progressing as needed Fdc Goal (LTG) Pt will increase B LE strength to at least a 4+/5 for improved ability for gait and functional ADL's LTG Duration 03/09/19 Assessment Summary Assessment Pt has progressed with ROM, functional strenght and gait. She cont to advance with ability to do functional activities at home and is now walking about 1.5 miles with min L knee pain. She is doing well with HEP with min cueing required for squatting. Improved hip flex with dec hip and knee pain after treatmetn . Physical Therapy Plan Frequency and Duration Frequency of Treatment 2x/Week Duration of Treatment 2 months Plan of Care Start Date 01/07/19 Plan of Care End Date 03/09/19 Therapeutic Interventions Therapeutic Interventions Aquatic Therapy,Balance Training,Coordination Training ,Gait Training,Home Exercise Program,Joint Mobilizations, Manual Therapy,Neuromuscular Re-education,Patient/Caregiver Education,Self-Care/Home Management,Sensory Integration ,Soft Tissue Mobilization, Taping,Therapeutic Activities, Therapeutic Exercises Modalities Cold Pack/Ice Massage,Electric Stimulation,Hot Packs, Ultrasound Next Visit Focus/Plan Next Note Type Treatment Note Next Visit Plan cont to work on PNF patterns, work on soft tissue of hip and thigh to improve ROM and dec knee pain with hip motions, balance, wt shifting & acceptance, review squat
--- NOTE | 2019-02-11 16:11 | PT.OTN ---
Current Diagnoses Pain in unspecified hip (02/11/19) Physical Therapy Treatment Note PT-OP-A Visit Information Start: 01/07/19 08:07 Freq: Status: Active Protocol: Document 02/11/19 14:45 LR (Rec: 02/11/19 16:11 [facility] [id number]) Out-Patient Physical Therapy Visit Information Visit Information Visit Type Progress Note Visit Start Time 14:33 Visit Stop Time 15:13 Total Visit Minutes 40 Visit Number 10 Number of GIVING OFFICER Visits 0 PT-OP-B Current Condition Start: 01/07/19 08:07 Freq: Status: Active Protocol: Document 01/07/19 08:08 MT (Rec: 01/07/19 14:52 MT [id number]) Current Condition History of Current Condition Onset Date 12/17/18 Current Complaints s/p anterior L FARHANA History of Current Condition Pt had anterior ttoal hip replacement at [facility] on . Pt was given no precautions from her surgeon. Pt went into chiropractor last monday and said she had her knee put back in place. Intermittent knee pain for past 5-6 years and sometimes doesnt feel like it always lines up correctly. Pt reports swelling in medial knee throughout day. Pt limps during gait with a left lateral trunk lean. Pt feels like she is putting equal weight through her feet now that she has had the surgery. DOes not hurt to sit, but leans towards the right side when sitting to offload L hip. This was the first tiome today that she drove, but is not able to turn over her shoulder completely towards the right. Pt struggles putting on socks and is only able to slip on shoes on L foot. 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 Pt's knee has been bugging her for about 5-6 years after a fall while birding and reports that knee has gotten worse since then. Prior to surgery pt said that knee hurt along patellar tendon. Pt reports that knee has been better since surgery, but still bugs her. She was apprehensive about laying on her L side. Pt reports that she feels a general numbness down the anterior aspect of her L thigh . Treatment Goals Patient/Caregiver Goals Pt's goal is to be able to walk around [place] and walk up stairs with a reciprocal gait pattern, improve her posture, and walk evenly. PT-OP-C Subjective Start: 01/07/19 08:07 Freq: Status: Active Protocol: Document 02/11/19 14:45 [facility] (Rec: 02/11/19 16:11 LR [id number]) OP-PT Subjective Patient Comments Patient Comments Pt reports she walked half of the long part of the [employer] [place], and the entire the other side. PT-OP-G Mobility & Gait Start: 01/07/19 08:07 Freq: Status: Active Protocol: Document 01/07/19 08:08 MT (Rec: 01/07/19 14:52 MT [id number]) OP Gait Assessment Comments Gait Comments Pt limps when she walks and has a L lateral trunk lean. She has very little push off of the L leg and is not able to get her L hip or knee to fully extend, and instead externally rotated her pelvis to propel forward. Pt performed bilateral mini squat to assess knee alignment . Pt's L knee moves laterally over 4th digit and pt's R knee goes medially beyond 1st toe. PT-OP-J Posture/Palpation/Skin Start: 01/07/19 08:07 Freq: Status: Active Protocol: Document 01/07/19 08:08 MT (Rec: 01/07/19 14:52 MT [id number]) Posture Evaluation Comments Posture Comments Pt sits with a R lateral lean in order to offload L hip during sitting. Skin Assessment Incisional Assessment Incision Appearance/Comments Pt incision on L groin/ant thigh area appears mostly closed up. Only slight pink coloration to inferior aspect of wound. No drainage. residual adhesive surrounding wound. PT-OP-K Range of Motion Start: 01/07/19 08:07 Freq: Status: Active Protocol: Document 01/07/19 08:08 MT (Rec: 01/07/19 14:52 MT [id number]) Hip Goniometric Range of Motion Hip Left Hip ROM WFL Yes Testing Position Supine Flexion w/Knee Flexed 119 Right Hip ROM WFL Yes Testing Position Supine Flexion w/Knee Flexed 92 Knee Goniometric Range of Motion Knee Left Knee ROM WFL Yes Patient Position Sitting Flexion Active (degrees) 144 Extension Active (degrees) 11 Right Knee ROM WFL Yes Patient Position Sitting Flexion Active (degrees) 142 Extension Active (degrees) 0 Knee ROM Limitations Comments Pt lacking 11 degrees of full L knee ext. Pt's knee extension performed in sitting and knee flexion performed in supine. Ankle and Foot Goniometric Range of Motion Ankle and Foot Left Ankle/Foot ROM WFL Yes Testing Position Sitting Dorsiflexion with Knee Flexed 9 Plantarflexion 65 Right Ankle/Foot ROM WFL Yes Testing Position Sitting Dorsiflexion with Knee Flexed 12 Plantarflexion 65 PT-OP-M Strength Start: 01/07/19 08:07 Freq: Status: Active Protocol: Document 01/07/19 08:08 MT (Rec: 01/07/19 14:52 MT [id number]) Hip Strength Hip Manual Muscle Testing Left Flexion (L2) 4- Good- Abduction 3+ Fair+ External Rotation 3+ Fair+ Internal Rotation 3+ Fair+ Right Flexion (L2) 4 Good Abduction 4 Good Adduction 4 Good External Rotation 4- Good- Internal Rotation 4- Good- Comments R abduction tested in supine b /c pt unable to tolerate L sidelying Knee Strength Knee Manual Muscle Testing Left Flexion (S2) 4 Good Extension (L3) 4 Good Right Flexion (S2) 4 Good Extension (L3) 4+ Good+ Ankle/Foot Strength Ankle and Foot Manual Muscle Testing Left Dorsiflexion (L4) 4+ Good+ Plantarflexion (S1) 4+ Good+ Right Dorsiflexion (L4) 5 Normal Plantarflexion (S1) 5 Normal PT-OP-Q Treatments Start: 01/07/19 08:07 Freq: Status: Active Protocol: Document 02/11/19 14:45 [facility] (Rec: 02/11/19 16:11 [facility] [id number]) Cardio Equipment Recumbent Elliptical (Biodex) Duration (Minutes) 6 Resistance 8 Seat Position 5 Therapeutic Exercises Standing Exercises wall posture Standing Exercise Name wall roll up with 90/90 ER with focus on core squat Standing Exercise Name squat over chair Reps/Minutes 20 Comments w/ L3 aroud knees to cue for avoiding IR of hips Manual Therapy Treatment Soft Tissue Mobilization iliacus Body Location L Mobilization Type Rolling,Sustained Pressure Comments w/hip flex Joint Mobilizations innominate Joint L Direction flex FM hip Joint L Direction inf FM with very light grade pressure about 1 Self-Care/Home Management Treatment Education Other Education anatomy of hip movement and innominate and sacral involvement. PT-OP-T Assessment and Plan Start: 01/07/19 08:07 Freq: Status: Active Protocol: Document 02/11/19 14:45 [facility] (Rec: 02/11/19 16:11 [facility] [id number]) Physical Therapy Assessment Goals stairs Short Term Goal (STG) pt will be able to equally accept weight onto her L and R LE in standing STG Duration achieved Custodial Goal (LTG) pt will be able to ascend/ descend stairs with a reciprocal step through gait pattern LTG Duration 03/09/19 ROM Custodial Goal (LTG) pt will increase hip flexion range to 110 to be able to don /doff sock/shoe independently without increase in pain LTG Duration achieved LEFS Short Term Goal (STG) Pt will report being able get up/dopwn from a chair or squat down with good body mechanics and no increase in pain. STG Duration achieved Custodial Goal (LTG) Pt will increase her LEFS score to 60/80 to demonstrate improved ability to carry out functional tasks and ADL's LTG Duration 03/09/19 ambulation Short Term Goal (STG) Pt will be able to demonstrate ambulation without deviations and without aggravation of symptoms. 02/11 improving mild deviations STG Duration 02/06/19 Custodial Goal (LTG) Pt will be able to ambulate around [place] LTG Duration 03/09/19 strength Short Term Goal (STG) pt will be independent and adhere to HEP STG Duration achieved progressing as needed Custodial Goal (LTG) Pt will increase B LE strength to at least a 4+/5 for improved ability for gait and functional ADL's LTG Duration 03/09/19 Assessment Summary Assessment Pt has progressed with ROM, functional strenght and gait. She cont to advance with ability to do functional activities at home and is now walking about 1.5 miles with min L knee pain. She is doing well with HEP with min cueing required for squatting. Improved hip flex with dec hip and knee pain after treatmetn . Physical Therapy Plan Frequency and Duration Frequency of Treatment 2x/Week Duration of Treatment 2 months Plan of Care Start Date 01/07/19 Plan of Care End Date 03/09/19 Therapeutic Interventions Therapeutic Interventions Aquatic Therapy,Balance Training,Coordination Training ,Gait Training,Home Exercise Program,Joint Mobilizations, Manual Therapy,Neuromuscular Re-education,Patient/Caregiver Education,Self-Care/Home Management,Sensory Integration ,Soft Tissue Mobilization, Taping,Therapeutic Activities, Therapeutic Exercises Modalities Cold Pack/Ice Massage,Electric Stimulation,Hot Packs, Ultrasound Next Visit Focus/Plan Next Note Type Treatment Note Next Visit Plan cont to work on PNF patterns, work on soft tissue of hip and thigh to improve ROM and dec knee pain with hip motions, balance, wt shifting & acceptance, review squat
--- NOTE | 2019-02-14 11:17 | PT.OTN ---
Current Diagnoses Pain in unspecified hip (02/14/19) Physical Therapy Treatment Note PT-OP-A Visit Information Start: 01/07/19 08:07 Freq: Status: Active Protocol: Document 02/14/19 10:37 LR (Rec: 02/14/19 11:17 [facility] [id number]) Out-Patient Physical Therapy Visit Information Visit Information Visit Type Treatment Note Visit Start Time 10:31 Visit Stop Time 11:10 Total Visit Minutes 39 Visit Number 11 Number of STEAM DISTRIBUTION SUPERVISOR Visits 0 PT-OP-B Current Condition Start: 01/07/19 08:07 Freq: Status: Active Protocol: Document 01/07/19 08:08 MT (Rec: 01/07/19 14:52 MT [id number]) Current Condition History of Current Condition Onset Date 12/17/18 Current Complaints s/p anterior L FARHANA History of Current Condition Pt had anterior ttoal hip replacement at [facility] on . Pt was given no precautions from her surgeon. Pt went into chiropractor last monday and said she had her knee put back in place. Intermittent knee pain for past 5-6 years and sometimes doesnt feel like it always lines up correctly. Pt reports swelling in medial knee throughout day. Pt limps during gait with a left lateral trunk lean. Pt feels like she is putting equal weight through her feet now that she has had the surgery. DOes not hurt to sit, but leans towards the right side when sitting to offload L hip. This was the first tiome today that she drove, but is not able to turn over her shoulder completely towards the right. Pt struggles putting on socks and is only able to slip on shoes on L foot. 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 Pt's knee has been bugging her for about 5-6 years after a fall while birding and reports that knee has gotten worse since then. Prior to surgery pt said that knee hurt along patellar tendon. Pt reports that knee has been better since surgery, but still bugs her. She was apprehensive about laying on her L side. Pt reports that she feels a general numbness down the anterior aspect of her L thigh . Treatment Goals Patient/Caregiver Goals Pt's goal is to be able to walk around [place] and walk up stairs with a reciprocal gait pattern, improve her posture, and walk evenly. PT-OP-C Subjective Start: 01/07/19 08:07 Freq: Status: Active Protocol: Document 02/14/19 10:37 [facility] (Rec: 02/14/19 11:17 [facility] [id number]) OP-PT Subjective Patient Comments Patient Comments Pt reports she has done the same walk the 2 days in a row. Pt reports she has some knee soreness after but goes away by next day. PT-OP-G Mobility & Gait Start: 01/07/19 08:07 Freq: Status: Active Protocol: Document 01/07/19 08:08 MT (Rec: 01/07/19 14:52 MT [id number]) OP Gait Assessment Comments Gait Comments Pt limps when she walks and has a L lateral trunk lean. She has very little push off of the L leg and is not able to get her L hip or knee to fully extend, and instead externally rotated her pelvis to propel forward. Pt performed bilateral mini squat to assess knee alignment . Pt's L knee moves laterally over 4th digit and pt's R knee goes medially beyond 1st toe. PT-OP-J Posture/Palpation/Skin Start: 01/07/19 08:07 Freq: Status: Active Protocol: Document 01/07/19 08:08 MT (Rec: 01/07/19 14:52 MT [id number]) Posture Evaluation Comments Posture Comments Pt sits with a R lateral lean in order to offload L hip during sitting. Skin Assessment Incisional Assessment Incision Appearance/Comments Pt incision on L groin/ant thigh area appears mostly closed up. Only slight pink coloration to inferior aspect of wound. No drainage. residual adhesive surrounding wound. PT-OP-K Range of Motion Start: 01/07/19 08:07 Freq: Status: Active Protocol: Document 01/07/19 08:08 MT (Rec: 01/07/19 14:52 MT [id number]) Hip Goniometric Range of Motion Hip Left Hip ROM WFL Yes Testing Position Supine Flexion w/Knee Flexed 119 Right Hip ROM WFL Yes Testing Position Supine Flexion w/Knee Flexed 92 Knee Goniometric Range of Motion Knee Left Knee ROM WFL Yes Patient Position Sitting Flexion Active (degrees) 144 Extension Active (degrees) 11 Right Knee ROM WFL Yes Patient Position Sitting Flexion Active (degrees) 142 Extension Active (degrees) 0 Knee ROM Limitations Comments Pt lacking 11 degrees of full L knee ext. Pt's knee extension performed in sitting and knee flexion performed in supine. Ankle and Foot Goniometric Range of Motion Ankle and Foot Left Ankle/Foot ROM WFL Yes Testing Position Sitting Dorsiflexion with Knee Flexed 9 Plantarflexion 65 Right Ankle/Foot ROM WFL Yes Testing Position Sitting Dorsiflexion with Knee Flexed 12 Plantarflexion 65 PT-OP-M Strength Start: 01/07/19 08:07 Freq: Status: Active Protocol: Document 01/07/19 08:08 MT (Rec: 01/07/19 14:52 MT [id number]) Hip Strength Hip Manual Muscle Testing Left Flexion (L2) 4- Good- Abduction 3+ Fair+ External Rotation 3+ Fair+ Internal Rotation 3+ Fair+ Right Flexion (L2) 4 Good Abduction 4 Good Adduction 4 Good External Rotation 4- Good- Internal Rotation 4- Good- Comments R abduction tested in supine b /c pt unable to tolerate L sidelying Knee Strength Knee Manual Muscle Testing Left Flexion (S2) 4 Good Extension (L3) 4 Good Right Flexion (S2) 4 Good Extension (L3) 4+ Good+ Ankle/Foot Strength Ankle and Foot Manual Muscle Testing Left Dorsiflexion (L4) 4+ Good+ Plantarflexion (S1) 4+ Good+ Right Dorsiflexion (L4) 5 Normal Plantarflexion (S1) 5 Normal PT-OP-Q Treatments Start: 01/07/19 08:07 Freq: Status: Active Protocol: Document 02/14/19 10:37 [facility] (Rec: 02/14/19 11:17 [facility] [id number]) Cardio Equipment Recumbent Elliptical (Biodex) Duration (Minutes) 6 Resistance 8 Seat Position 5 Gym Equipment Sport Cord wt shift Cord/Resistance red Comments progressed ot gait in mirror with focus on pusho ff Therapeutic Exercises Supine Exercises hip flex Supine Exercise Name stretch-modified kathleen test SKTC w/quad set Reps/Minutes 10 B Standing Exercises wall posture Standing Exercise Name wall roll up with 90/90 ER with focus on core Reps/Minutes 10 Gait Training Gait Activity gait Comments 1. focus on push off 2. exaggerated gait wt shift Comments in mirror for foucs on push off Manual Therapy Treatment Soft Tissue Mobilization ITB Body Location L Mobilization Type Myofascial Release Comments plunger iliacus Body Location L Mobilization Type Rolling,Sustained Pressure Comments w/hip flex PT-OP-T Assessment and Plan Start: 01/07/19 08:07 Freq: Status: Active Protocol: Document 02/14/19 10:37 [facility] (Rec: 02/14/19 11:17 [facility] [id number]) Physical Therapy Assessment Goals stairs Short Term Goal (STG) pt will be able to equally accept weight onto her L and R LE in standing STG Duration achieved Shelter Goal (LTG) pt will be able to ascend/ descend stairs with a reciprocal step through gait pattern LTG Duration 03/09/19 ROM Hotel Clerk Goal (LTG) pt will increase hip flexion range to 110 to be able to don /doff sock/shoe independently without increase in pain LTG Duration achieved LEFS Short Term Goal (STG) Pt will report being able get up/dopwn from a chair or squat down with good body mechanics and no increase in pain. STG Duration achieved Hotel Clerk Goal (LTG) Pt will increase her LEFS score to 60/80 to demonstrate improved ability to carry out functional tasks and ADL's LTG Duration 03/09/19 ambulation Short Term Goal (STG) Pt will be able to demonstrate ambulation without deviations and without aggravation of symptoms. 02/11 improving mild deviations STG Duration 02/06/19 Shelter Goal (LTG) Pt will be able to ambulate around [place] LTG Duration 03/09/19 strength Short Term Goal (STG) pt will be independent and adhere to HEP STG Duration achieved progressing as needed Shelter Goal (LTG) Pt will increase B LE strength to at least a 4+/5 for improved ability for gait and functional ADL's LTG Duration 03/09/19 Assessment Summary Assessment Pt foss dimproved hip flex with manual techniques. She cont to improve with gait and with focus on wt shift and acceptance pt dec pelvis rotation during push off Physical Therapy Plan Next Visit Focus/Plan Next Note Type Treatment Note Next Visit Plan cont to work on PNF patterns, work on soft tissue of hip and thigh to improve ROM and dec knee pain with hip motions, balance, wt shifting & acceptance, review squat
--- NOTE | 2019-02-28 12:18 | PT.OTN ---
Current Diagnoses Pain in unspecified hip (02/28/19) Physical Therapy Treatment Note PT-OP-A Visit Information Start: 01/07/19 08:07 Freq: Status: Active Protocol: Document 02/28/19 11:20 [facility] (Rec: 02/28/19 12:18 [facility] [id number]) Out-Patient Physical Therapy Visit Information Visit Information Visit Type Treatment Note Visit Start Time 11:20 Visit Stop Time 12:00 Total Visit Minutes 40 Visit Number 12 Number of CURB BUILDER Visits 0 PT-OP-B Current Condition Start: 01/07/19 08:07 Freq: Status: Active Protocol: Document 01/07/19 08:08 MT (Rec: 01/07/19 14:52 MT [id number]) Current Condition History of Current Condition Onset Date 12/17/18 Current Complaints s/p anterior L FARHANA History of Current Condition Pt had anterior ttoal hip replacement at [facility] on . Pt was given no precautions from her surgeon. Pt went into chiropractor last monday and said she had her knee put back in place. Intermittent knee pain for past 5-6 years and sometimes doesnt feel like it always lines up correctly. Pt reports swelling in medial knee throughout day. Pt limps during gait with a left lateral trunk lean. Pt feels like she is putting equal weight through her feet now that she has had the surgery. DOes not hurt to sit, but leans towards the right side when sitting to offload L hip. This was the first tiome today that she drove, but is not able to turn over her shoulder completely towards the right. Pt struggles putting on socks and is only able to slip on shoes on L foot. 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 Pt's knee has been bugging her for about 5-6 years after a fall while birding and reports that knee has gotten worse since then. Prior to surgery pt said that knee hurt along patellar tendon. Pt reports that knee has been better since surgery, but still bugs her. She was apprehensive about laying on her L side. Pt reports that she feels a general numbness down the anterior aspect of her L thigh . Treatment Goals Patient/Caregiver Goals Pt's goal is to be able to walk around [place] and walk up stairs with a reciprocal gait pattern, improve her posture, and walk evenly. PT-OP-C Subjective Start: 01/07/19 08:07 Freq: Status: Active Protocol: Document 02/28/19 11:20 LR (Rec: 02/28/19 12:18 LR [id number]) OP-PT Subjective Patient Comments Patient Comments Pt reports last , her L groin traveling to the post aspect of her hip. Called both primary who refered her to surgeon who said they could do xray but sounded muscular. Pt reports using cane this weekend dt that. Pt wants to review a few exercises. Reports doing well with exercises overall though. PT-OP-G Mobility & Gait Start: 01/07/19 08:07 Freq: Status: Active Protocol: Document 01/07/19 08:08 MT (Rec: 01/07/19 14:52 MT [id number]) OP Gait Assessment Comments Gait Comments Pt limps when she walks and has a L lateral trunk lean. She has very little push off of the L leg and is not able to get her L hip or knee to fully extend, and instead externally rotated her pelvis to propel forward. Pt performed bilateral mini squat to assess knee alignment . Pt's L knee moves laterally over 4th digit and pt's R knee goes medially beyond 1st toe. PT-OP-J Posture/Palpation/Skin Start: 01/07/19 08:07 Freq: Status: Active Protocol: Document 01/07/19 08:08 MT (Rec: 01/07/19 14:52 MT [id number]) Posture Evaluation Comments Posture Comments Pt sits with a R lateral lean in order to offload L hip during sitting. Skin Assessment Incisional Assessment Incision Appearance/Comments Pt incision on L groin/ant thigh area appears mostly closed up. Only slight pink coloration to inferior aspect of wound. No drainage. residual adhesive surrounding wound. PT-OP-K Range of Motion Start: 01/07/19 08:07 Freq: Status: Active Protocol: Document 01/07/19 08:08 MT (Rec: 01/07/19 14:52 MT [id number]) Hip Goniometric Range of Motion Hip Left Hip ROM WFL Yes Testing Position Supine Flexion w/Knee Flexed 119 Right Hip ROM WFL Yes Testing Position Supine Flexion w/Knee Flexed 92 Knee Goniometric Range of Motion Knee Left Knee ROM WFL Yes Patient Position Sitting Flexion Active (degrees) 144 Extension Active (degrees) 11 Right Knee ROM WFL Yes Patient Position Sitting Flexion Active (degrees) 142 Extension Active (degrees) 0 Knee ROM Limitations Comments Pt lacking 11 degrees of full L knee ext. Pt's knee extension performed in sitting and knee flexion performed in supine. Ankle and Foot Goniometric Range of Motion Ankle and Foot Left Ankle/Foot ROM WFL Yes Testing Position Sitting Dorsiflexion with Knee Flexed 9 Plantarflexion 65 Right Ankle/Foot ROM WFL Yes Testing Position Sitting Dorsiflexion with Knee Flexed 12 Plantarflexion 65 PT-OP-M Strength Start: 01/07/19 08:07 Freq: Status: Active Protocol: Document 01/07/19 08:08 MT (Rec: 01/07/19 14:52 MT [id number]) Hip Strength Hip Manual Muscle Testing Left Flexion (L2) 4- Good- Abduction 3+ Fair+ External Rotation 3+ Fair+ Internal Rotation 3+ Fair+ Right Flexion (L2) 4 Good Abduction 4 Good Adduction 4 Good External Rotation 4- Good- Internal Rotation 4- Good- Comments R abduction tested in supine b /c pt unable to tolerate L sidelying Knee Strength Knee Manual Muscle Testing Left Flexion (S2) 4 Good Extension (L3) 4 Good Right Flexion (S2) 4 Good Extension (L3) 4+ Good+ Ankle/Foot Strength Ankle and Foot Manual Muscle Testing Left Dorsiflexion (L4) 4+ Good+ Plantarflexion (S1) 4+ Good+ Right Dorsiflexion (L4) 5 Normal Plantarflexion (S1) 5 Normal PT-OP-Q Treatments Start: 01/07/19 08:07 Freq: Status: Active Protocol: Document 02/28/19 11:20 [facility] (Rec: 02/28/19 12:18 [facility] [id number]) Cardio Equipment Recumbent Stepper (Sci-Fit) Duration (Minutes) 6 Resistance 5 Seat Position 8 Gym Equipment Sport Cord wt shift Cord/Resistance green Comments progressed to gait in mirror with focus on push off Therapeutic Exercises Standing Exercises hip hike Standing Exercise Name focus on post depression & ant elevation vs post elevation wall posture Standing Exercise Name wall roll up with 90/90 ER with focus on core Reps/Minutes 10 Gait Training Gait Activity gait Comments 1. focus on push off 2. exaggerated gait wt shift Comments in mirror for foucs on push off to wt acceptance Manual Therapy Treatment Soft Tissue Mobilization w/hip abd Body Location adductors Mobilization Type Strumming,Sustained Pressure Body Position Supine w/hip rotation Body Location L adductors & glutes/ piriformis Mobilization Type Rolling,Strumming PT-OP-T Assessment and Plan Start: 01/07/19 08:07 Freq: Status: Active Protocol: Document 02/28/19 11:20 [facility] (Rec: 02/28/19 12:18 [facility] [id number]) Physical Therapy Assessment Goals stairs Short Term Goal (STG) pt will be able to equally accept weight onto her L and R LE in standing STG Duration achieved Hypo Splasher Goal (LTG) pt will be able to ascend/ descend stairs with a reciprocal step through gait pattern LTG Duration 03/09/19 ROM Hypo Splasher Goal (LTG) pt will increase hip flexion range to 110 to be able to don /doff sock/shoe independently without increase in pain LTG Duration achieved LEFS Short Term Goal (STG) Pt will report being able get up/dopwn from a chair or squat down with good body mechanics and no increase in pain. STG Duration achieved Hypo Splasher Goal (LTG) Pt will increase her LEFS score to 60/80 to demonstrate improved ability to carry out functional tasks and ADL's LTG Duration 03/09/19 ambulation Short Term Goal (STG) Pt will be able to demonstrate ambulation without deviations and without aggravation of symptoms. 02/11 improving mild deviations STG Duration 02/06/19 Hypo Splasher Goal (LTG) Pt will be able to ambulate around [place] LTG Duration 03/09/19 strength Short Term Goal (STG) pt will be independent and adhere to HEP STG Duration achieved progressing as needed Long-Term Goal (LTG) Pt will increase B LE strength to at least a 4+/5 for improved ability for gait and functional ADL's LTG Duration 03/09/19 Assessment Summary Assessment Pt cued for push off as she typicallywas not wt shifting fwd. She improved with cueing. She improved with exercise performance after cueing. Dec pain in hip after manual treatment. Physical Therapy Plan Frequency and Duration Frequency of Treatment 2x/Week Duration of Treatment 2 months Plan of Care Start Date 01/07/19 Plan of Care End Date 03/09/19 Therapeutic Interventions Therapeutic Interventions Aquatic Therapy,Balance Training,Coordination Training ,Gait Training,Home Exercise Program,Joint Mobilizations, Manual Therapy,Neuromuscular Re-education,Patient/Caregiver Education,Self-Care/Home Management,Sensory Integration ,Soft Tissue Mobilization, Taping,Therapeutic Activities, Therapeutic Exercises Modalities Cold Pack/Ice Massage,Electric Stimulation,Hot Packs, Ultrasound Next Visit Focus/Plan Next Note Type Treatment Note Next Visit Plan cont to work on PNF patterns, work on soft tissue of hip and thigh to improve ROM and dec knee pain with hip motions, balance, wt shifting & acceptance
--- NOTE | 2019-03-04 12:00 | PT.OTN ---
Current Diagnoses Pain in unspecified hip (03/04/19) Physical Therapy Treatment Note PT-OP-A Visit Information Start: 01/07/19 08:07 Freq: Status: Active Protocol: Document 03/04/19 09:53 [facility] (Rec: 03/04/19 12:00 [facility] [id number]) Out-Patient Physical Therapy Visit Information Visit Information Visit Type Treatment Note Visit Start Time 09:05 Visit Stop Time 09:45 Total Visit Minutes 40 Visit Number 13 Number of JAVA ORACLE DEVELOPER Visits 0 PT-OP-B Current Condition Start: 01/07/19 08:07 Freq: Status: Active Protocol: Document 01/07/19 08:08 MT (Rec: 01/07/19 14:52 MT [id number]) Current Condition History of Current Condition Onset Date 12/17/18 Current Complaints s/p anterior L FARHANA History of Current Condition Pt had anterior ttoal hip replacement at [facility] on . Pt was given no precautions from her surgeon. Pt went into chiropractor last monday and said she had her knee put back in place. Intermittent knee pain for past 5-6 years and sometimes doesnt feel like it always lines up correctly. Pt reports swelling in medial knee throughout day. Pt limps during gait with a left lateral trunk lean. Pt feels like she is putting equal weight through her feet now that she has had the surgery. DOes not hurt to sit, but leans towards the right side when sitting to offload L hip. This was the first tiome today that she drove, but is not able to turn over her shoulder completely towards the right. Pt struggles putting on socks and is only able to slip on shoes on L foot. 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 Pt's knee has been bugging her for about 5-6 years after a fall while birding and reports that knee has gotten worse since then. Prior to surgery pt said that knee hurt along patellar tendon. Pt reports that knee has been better since surgery, but still bugs her. She was apprehensive about laying on her L side. Pt reports that she feels a general numbness down the anterior aspect of her L thigh . Treatment Goals Patient/Caregiver Goals Pt's goal is to be able to walk around [place] and walk up stairs with a reciprocal gait pattern, improve her posture, and walk evenly. PT-OP-C Subjective Start: 01/07/19 08:07 Freq: Status: Active Protocol: Document 03/04/19 09:53 [facility] (Rec: 03/04/19 12:00 [facility] [id number]) OP-PT Subjective Patient Comments Patient Comments Pt reports bridges and hip lifts sometimes bothers her knee. Notes after walking about 1 mile she noticed fatigue in her R glute but pain in L. Pt reports groin pain is better PT-OP-G Mobility & Gait Start: 01/07/19 08:07 Freq: Status: Active Protocol: Document 01/07/19 08:08 MT (Rec: 01/07/19 14:52 MT [id number]) OP Gait Assessment Comments Gait Comments Pt limps when she walks and has a L lateral trunk lean. She has very little push off of the L leg and is not able to get her L hip or knee to fully extend, and instead externally rotated her pelvis to propel forward. Pt performed bilateral mini squat to assess knee alignment . Pt's L knee moves laterally over 4th digit and pt's R knee goes medially beyond 1st toe. PT-OP-J Posture/Palpation/Skin Start: 01/07/19 08:07 Freq: Status: Active Protocol: Document 01/07/19 08:08 MT (Rec: 01/07/19 14:52 MT [id number]) Posture Evaluation Comments Posture Comments Pt sits with a R lateral lean in order to offload L hip during sitting. Skin Assessment Incisional Assessment Incision Appearance/Comments Pt incision on L groin/ant thigh area appears mostly closed up. Only slight pink coloration to inferior aspect of wound. No drainage. residual adhesive surrounding wound. PT-OP-K Range of Motion Start: 01/07/19 08:07 Freq: Status: Active Protocol: Document 01/07/19 08:08 MT (Rec: 01/07/19 14:52 MT [id number]) Hip Goniometric Range of Motion Hip Left Hip ROM WFL Yes Testing Position Supine Flexion w/Knee Flexed 119 Right Hip ROM WFL Yes Testing Position Supine Flexion w/Knee Flexed 92 Knee Goniometric Range of Motion Knee Left Knee ROM WFL Yes Patient Position Sitting Flexion Active (degrees) 144 Extension Active (degrees) 11 Right Knee ROM WFL Yes Patient Position Sitting Flexion Active (degrees) 142 Extension Active (degrees) 0 Knee ROM Limitations Comments Pt lacking 11 degrees of full L knee ext. Pt's knee extension performed in sitting and knee flexion performed in supine. Ankle and Foot Goniometric Range of Motion Ankle and Foot Left Ankle/Foot ROM WFL Yes Testing Position Sitting Dorsiflexion with Knee Flexed 9 Plantarflexion 65 Right Ankle/Foot ROM WFL Yes Testing Position Sitting Dorsiflexion with Knee Flexed 12 Plantarflexion 65 PT-OP-M Strength Start: 01/07/19 08:07 Freq: Status: Active Protocol: Document 01/07/19 08:08 MT (Rec: 01/07/19 14:52 AR [id number]) Hip Strength Hip Manual Muscle Testing Left Flexion (L2) 4- Good- Abduction 3+ Fair+ External Rotation 3+ Fair+ Internal Rotation 3+ Fair+ Right Flexion (L2) 4 Good Abduction 4 Good Adduction 4 Good External Rotation 4- Good- Internal Rotation 4- Good- Comments R abduction tested in supine b /c pt unable to tolerate L sidelying Knee Strength Knee Manual Muscle Testing Left Flexion (S2) 4 Good Extension (L3) 4 Good Right Flexion (S2) 4 Good Extension (L3) 4+ Good+ Ankle/Foot Strength Ankle and Foot Manual Muscle Testing Left Dorsiflexion (L4) 4+ Good+ Plantarflexion (S1) 4+ Good+ Right Dorsiflexion (L4) 5 Normal Plantarflexion (S1) 5 Normal PT-OP-Q Treatments Start: 01/07/19 08:07 Freq: Status: Active Protocol: Document 03/04/19 09:53 [facility] (Rec: 03/04/19 12:00 [facility] [id number]) Cardio Equipment Recumbent Elliptical (Biodex) Duration (Minutes) 7 Resistance 8 Seat Position 5 Gym Equipment Sport Cord wt shift Cord/Resistance red Comments progressed to gait in mirror with focus on push off Therapeutic Exercises Standing Exercises hip hike Standing Exercise Name focus on post depression & ant elevation vs post elevation Side bilateral Reps/Minutes 2x10 Gait Training Gait Activity wt shift Comments in mirror for foucs on push off to wt acceptance Manual Therapy Treatment Joint Mobilizations sacrum Direction caudal FM innominate Joint L Direction flex, caudal & ER FM hip Joint L Direction inf FM Grade II PT-OP-T Assessment and Plan Start: 01/07/19 08:07 Freq: Status: Active Protocol: Document 03/04/19 09:53 [facility] (Rec: 03/04/19 12:00 [facility] [id number]) Physical Therapy Assessment Goals stairs Short Term Goal (STG) pt will be able to equally accept weight onto her L and R LE in standing STG Duration achieved Prison Goal (LTG) pt will be able to ascend/ descend stairs with a reciprocal step through gait pattern LTG Duration 03/09/19 ROM Prison Goal (LTG) pt will increase hip flexion range to 110 to be able to don /doff sock/shoe independently without increase in pain LTG Duration achieved LEFS Short Term Goal (STG) Pt will report being able get up/dopwn from a chair or squat down with good body mechanics and no increase in pain. STG Duration achieved Hadoop Analyst Goal (LTG) Pt will increase her LEFS score to 60/80 to demonstrate improved ability to carry out functional tasks and ADL's LTG Duration 03/09/19 ambulation Short Term Goal (STG) Pt will be able to demonstrate ambulation without deviations and without aggravation of symptoms. 02/11 improving mild deviations STG Duration 02/06/19 Prison Goal (LTG) Pt will be able to ambulate around [place] LTG Duration 03/09/19 strength Short Term Goal (STG) pt will be independent and adhere to HEP STG Duration achieved progressing as needed Prison Goal (LTG) Pt will increase B LE strength to at least a 4+/5 for improved ability for gait and functional ADL's LTG Duration 03/09/19 Assessment Summary Assessment Pt cont to improve with her gait mechanics with cueing and focus on push off and wt acceptance to LLE. She required review of hip hiking exercise d/t pt just doing hip flex/ext and not the full pelvis motion. Improved hip flex with manual therapy and ability to ER comfortably along with sit more comfortable and equal feeling of wt acceptance in sitting. Physical Therapy Plan Frequency and Duration Frequency of Treatment 2x/Week Duration of Treatment 2 months Plan of Care Start Date 01/07/19 Plan of Care End Date 03/09/19 Therapeutic Interventions Therapeutic Interventions Aquatic Therapy,Balance Training,Coordination Training ,Gait Training,Home Exercise Program,Joint Mobilizations, Manual Therapy,Neuromuscular Re-education,Patient/Caregiver Education,Self-Care/Home Management,Sensory Integration ,Soft Tissue Mobilization, Taping,Therapeutic Activities, Therapeutic Exercises Modalities Cold Pack/Ice Massage,Electric Stimulation,Hot Packs, Ultrasound Next Visit Focus/Plan Next Note Type Treatment Note Next Visit Plan cont to work on PNF patterns, work on soft tissue of hip and thigh to improve ROM and dec knee pain with hip motions, balance, wt shifting & acceptance
--- NOTE | 2019-03-11 11:56 | PT.OTN ---
Current Diagnoses Pain in unspecified hip (03/11/19) Physical Therapy Treatment Note PT-OP-A Visit Information Start: 01/07/19 08:07 Freq: Status: Active Protocol: Document 03/11/19 09:59 [facility] (Rec: 03/11/19 11:55 [facility] [id number]) Out-Patient Physical Therapy Visit Information Visit Information Visit Type Progress Note Visit Note 03/01 Visit Start Time 09:53 Visit Stop Time 10:33 Total Visit Minutes 40 Visit Number 14 Number of STEEL POURER Visits 0 PT-OP-B Current Condition Start: 01/07/19 08:07 Freq: Status: Active Protocol: Document 01/07/19 08:08 MT (Rec: 01/07/19 14:52 MT [id number]) Current Condition History of Current Condition Onset Date 12/17/18 Current Complaints s/p anterior L FARHANA History of Current Condition Pt had anterior ttoal hip replacement at [facility] on . Pt was given no precautions from her surgeon. Pt went into chiropractor last monday and said she had her knee put back in place. Intermittent knee pain for past 5-6 years and sometimes doesnt feel like it always lines up correctly. Pt reports swelling in medial knee throughout day. Pt limps during gait with a left lateral trunk lean. Pt feels like she is putting equal weight through her feet now that she has had the surgery. DOes not hurt to sit, but leans towards the right side when sitting to offload L hip. This was the first tiome today that she drove, but is not able to turn over her shoulder completely towards the right. Pt struggles putting on socks and is only able to slip on shoes on L foot. 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 Pt's knee has been bugging her for about 5-6 years after a fall while birding and reports that knee has gotten worse since then. Prior to surgery pt said that knee hurt along patellar tendon. Pt reports that knee has been better since surgery, but still bugs her. She was apprehensive about laying on her L side. Pt reports that she feels a general numbness down the anterior aspect of her L thigh . Treatment Goals Patient/Caregiver Goals Pt's goal is to be able to walk around [place] and walk up stairs with a reciprocal gait pattern, improve her posture, and walk evenly. PT-OP-C Subjective Start: 01/07/19 08:07 Freq: Status: Active Protocol: Document 03/11/19 09:59 [facility] (Rec: 03/11/19 11:55 [facility] [id number]) OP-PT Subjective Patient Comments Patient Comments Pt walked full length of [place]. Pt reports only mild tightness in knee and some in med HS region. REports inc pain in med HS/groin area after vacuum PT-OP-G Mobility & Gait Start: 01/07/19 08:07 Freq: Status: Active Protocol: Document 01/07/19 08:08 MT (Rec: 01/07/19 14:52 MT [id number]) OP Gait Assessment Comments Gait Comments Pt limps when she walks and has a L lateral trunk lean. She has very little push off of the L leg and is not able to get her L hip or knee to fully extend, and instead externally rotated her pelvis to propel forward. Pt performed bilateral mini squat to assess knee alignment . Pt's L knee moves laterally over 4th digit and pt's R knee goes medially beyond 1st toe. PT-OP-J Posture/Palpation/Skin Start: 01/07/19 08:07 Freq: Status: Active Protocol: Document 01/07/19 08:08 MT (Rec: 01/07/19 14:52 MT [id number]) Posture Evaluation Comments Posture Comments Pt sits with a R lateral lean in order to offload L hip during sitting. Skin Assessment Incisional Assessment Incision Appearance/Comments Pt incision on L groin/ant thigh area appears mostly closed up. Only slight pink coloration to inferior aspect of wound. No drainage. residual adhesive surrounding wound. PT-OP-K Range of Motion Start: 01/07/19 08:07 Freq: Status: Active Protocol: Document 01/07/19 08:08 MT (Rec: 01/07/19 14:52 MT [id number]) Hip Goniometric Range of Motion Hip Left Hip ROM WFL Yes Testing Position Supine Flexion w/Knee Flexed 119 Right Hip ROM WFL Yes Testing Position Supine Flexion w/Knee Flexed 92 Knee Goniometric Range of Motion Knee Left Knee ROM WFL Yes Patient Position Sitting Flexion Active (degrees) 144 Extension Active (degrees) 11 Right Knee ROM WFL Yes Patient Position Sitting Flexion Active (degrees) 142 Extension Active (degrees) 0 Knee ROM Limitations Comments Pt lacking 11 degrees of full L knee ext. Pt's knee extension performed in sitting and knee flexion performed in supine. Ankle and Foot Goniometric Range of Motion Ankle and Foot Left Ankle/Foot ROM WFL Yes Testing Position Sitting Dorsiflexion with Knee Flexed 9 Plantarflexion 65 Right Ankle/Foot ROM WFL Yes Testing Position Sitting Dorsiflexion with Knee Flexed 12 Plantarflexion 65 PT-OP-M Strength Start: 01/07/19 08:07 Freq: Status: Active Protocol: Document 03/11/19 09:59 [facility] (Rec: 03/11/19 11:55 [facility] [id number]) Hip Strength Hip Manual Muscle Testing Left Flexion (L2) 4 Good Extension (S1) 3+ Fair+ Abduction 4 Good Adduction 4 Good External Rotation 4- Good- Internal Rotation 5 Normal Right Flexion (L2) 5 Normal Extension (S1) 4+ Good+ Abduction 5 Normal Adduction 5 Normal External Rotation 4+ Good+ Internal Rotation 4 Good Knee Strength Knee Manual Muscle Testing Left Flexion (S2) 5 Normal Extension (L3) 4+ Good+ Right Flexion (S2) 5 Normal Extension (L3) 5 Normal Ankle/Foot Strength Ankle and Foot Manual Muscle Testing Left Dorsiflexion (L4) 5 Normal Plantarflexion (S1) 5 Normal Comments tested in standing Right Dorsiflexion (L4) 5 Normal Plantarflexion (S1) 5 Normal PT-OP-Q Treatments Start: 01/07/19 08:07 Freq: Status: Active Protocol: Document 03/11/19 09:59 [facility] (Rec: 03/11/19 11:55 [facility] [id number]) Gait Training Gait Activity gait Comments 1. focus on push off in and not in mirror 2. exaggerated gait ant elvation 3. exaggerated gait post depression 4. resisted gait with dowel wt shift Comments in mirror for foucs on push off to wt acceptance Manual Therapy Treatment Soft Tissue Mobilization w/hip rotation Body Location L adductors & glutes/ piriformis Mobilization Type Rolling,Strumming PT-OP-T Assessment and Plan Start: 01/07/19 08:07 Freq: Status: Active Protocol: Document 03/11/19 09:59 [facility] (Rec: 03/11/19 11:55 [facility] [id number]) Physical Therapy Assessment Goals stairs Short Term Goal (STG) pt will be able to equally accept weight onto her L and R LE in standing STG Duration achieved Snf Goal (LTG) pt will be able to ascend/ descend stairs with a reciprocal step through gait pattern LTG Duration achieved ROM Short Term Goal (STG) Pt will be able to clip toenails w/o difficulty. STG Duration 04/11/19 Snf Goal (LTG) pt will increase hip flexion range to 110 to be able to don /doff sock/shoe independently without increase in pain LTG Duration achieved LEFS Short Term Goal (STG) Pt will report being able get up/dopwn from a chair or squat down with good body mechanics and no increase in pain. STG Duration achieved Torch Straightener Goal (LTG) Pt will increase her LEFS score to 60/80 to demonstrate improved ability to carry out functional tasks and ADL's 03/11- LTG Duration 05/08/19 ambulation Short Term Goal (STG) Pt will be able to demonstrate ambulation without deviations and without aggravation of symptoms. 02/11 improving mild deviations STG Duration achieved Snf Goal (LTG) Pt will be able to ambulate around [place] LTG Duration 05/08/19 strength Short Term Goal (STG) pt will be independent and adhere to HEP STG Duration achieved progressing as needed Snf Goal (LTG) Pt will increase B LE strength to at least a 4+/5 for improved ability for gait and functional ADL's 03/11-excellent progress LTG Duration 05/08/19 Assessment Summary Assessment Pt is improvign significantly with dec pain in L knee and hip, improved gait mechanics, imporved ability to amb, improved ROM and improved strength. She still have ROM and strength deficits that limit her but is progressing well. Physical Therapy Plan Frequency and Duration Frequency of Treatment 1-2x/Week Duration of Treatment 2 months Plan of Care Start Date 03/11/19 Plan of Care End Date 05/10/19 Therapeutic Interventions Therapeutic Interventions Aquatic Therapy,Balance Training,Coordination Training ,Gait Training,Home Exercise Program,Joint Mobilizations, Manual Therapy,Neuromuscular Re-education,Patient/Caregiver Education,Self-Care/Home Management,Sensory Integration ,Soft Tissue Mobilization, Taping,Therapeutic Activities, Therapeutic Exercises Modalities Cold Pack/Ice Massage,Electric Stimulation,Hot Packs, Ultrasound Next Visit Focus/Plan Next Note Type Treatment Note Next Visit Plan cont to work on PNF patterns, work on soft tissue of hip and thigh to improve ROM and dec knee pain with hip motions, balance, wt shifting & acceptance
--- NOTE | 2019-03-11 11:56 | PT.OPPOC ---
Physical, Occupational & Speech Therapy At [facility] Current Diagnoses Pain in unspecified hip (03/11/19) Visit Care Team Role Provider Type Mahesh Aguilar MD Primary Care Provider Physician Specialty: Family Practice Address: [address] [place] [address], [id number] Email: [email or web address] Eb Reynolds MD Attending Provider Non-Staff Specialty: Orthopedic Surgery Address: [address] [place] [address], [address], [place], [address] Email: Plan Of Care PT-OP-T Assessment and Plan Start: 01/07/19 08:07 Freq: Status: Active Protocol: Document 03/11/19 09:59 [facility] (Rec: 03/11/19 11:55 [facility] [id number]) Physical Therapy Assessment Goals stairs Short Term Goal (STG) pt will be able to equally accept weight onto her L and R LE in standing STG Duration achieved Sales Representative Printing Supplies Goal (LTG) pt will be able to ascend/ descend stairs with a reciprocal step through gait pattern LTG Duration achieved ROM Short Term Goal (STG) Pt will be able to clip toenails w/o difficulty. STG Duration 04/11/19 Sales Representative Printing Supplies Goal (LTG) pt will increase hip flexion range to 110 to be able to don /doff sock/shoe independently without increase in pain LTG Duration achieved LEFS Short Term Goal (STG) Pt will report being able get up/dopwn from a chair or squat down with good body mechanics and no increase in pain. STG Duration achieved Sales Representative Printing Supplies Goal (LTG) Pt will increase her LEFS score to 60/80 to demonstrate improved ability to carry out functional tasks and ADL's 03/11- LTG Duration 05/08/19 ambulation Short Term Goal (STG) Pt will be able to demonstrate ambulation without deviations and without aggravation of symptoms. 02/11 improving mild deviations STG Duration achieved Sales Representative [employer] Supplies Goal (LTG) Pt will be able to ambulate around [place] LTG Duration 05/08/19 strength Short Term Goal (STG) pt will be independent and adhere to HEP STG Duration achieved progressing as needed Mcfp Goal (LTG) Pt will increase B LE strength to at least a 4+/5 for improved ability for gait and functional ADL's 03/11-excellent progress LTG Duration 05/08/19 Assessment Summary Assessment Pt is improvign significantly with dec pain in L knee and hip, improved gait mechanics, imporved ability to amb, improved ROM and improved strength. She still have ROM and strength deficits that limit her but is progressing well. Physical Therapy Plan Frequency and Duration Frequency of Treatment 1-2x/Week Duration of Treatment 2 months Plan of Care Start Date 03/11/19 Plan of Care End Date 05/10/19 Therapeutic Interventions Therapeutic Interventions Aquatic Therapy,Balance Training,Coordination Training ,Gait Training,Home Exercise Program,Joint Mobilizations, Manual Therapy,Neuromuscular Re-education,Patient/Caregiver Education,Self-Care/Home Management,Sensory Integration ,Soft Tissue Mobilization, Taping,Therapeutic Activities, Therapeutic Exercises Modalities Cold Pack/Ice Massage,Electric Stimulation,Hot Packs, Ultrasound Next Visit Focus/Plan Next Note Type Treatment Note Next Visit Plan cont to work on PNF patterns, work on soft tissue of hip and thigh to improve ROM and dec knee pain with hip motions, balance, wt shifting & acceptance Plan of Care Dates Plan of Care Start Date 03/11/19 Plan of Care End Date 05/10/19 Electronically Signed by: Maia Yost, PT 03/11/19 9040 Please Sign and Return: I have reviewed this Plan of Care and certify that the skilled therapy services above are required to meet the patient?s needs. Physician Signature Date Printed Name and Credentials Clinical Instructor Signature Printed Name and Credentials
--- NOTE | 2019-03-18 10:32 | PT.OTN ---
Current Diagnoses Pain in unspecified hip (03/18/19) Physical Therapy Treatment Note PT-OP-A Visit Information Start: 01/07/19 08:07 Freq: Status: Active Protocol: Document 03/18/19 09:52 [facility] (Rec: 03/18/19 10:31 [facility] [id number]) Out-Patient Physical Therapy Visit Information Visit Information Visit Type Treatment Note Visit Note 04/01 Visit Start Time 09:47 Visit Stop Time 10:27 Total Visit Minutes 40 Visit Number 15 PT-OP-B Current Condition Start: 01/07/19 08:07 Freq: Status: Active Protocol: Document 01/07/19 08:08 MT (Rec: 01/07/19 14:52 MT [id number]) Current Condition History of Current Condition Onset Date 12/17/18 Current Complaints s/p anterior L FARHANA History of Current Condition Pt had anterior ttoal hip replacement at [facility] on . Pt was given no precautions from her surgeon. Pt went into chiropractor last monday and said she had her knee put back in place. Intermittent knee pain for past 5-6 years and sometimes doesnt feel like it always lines up correctly. Pt reports swelling in medial knee throughout day. Pt limps during gait with a left lateral trunk lean. Pt feels like she is putting equal weight through her feet now that she has had the surgery. DOes not hurt to sit, but leans towards the right side when sitting to offload L hip. This was the first tiome today that she drove, but is not able to turn over her shoulder completely towards the right. Pt struggles putting on socks and is only able to slip on shoes on L foot. 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 Pt's knee has been bugging her for about 5-6 years after a fall while birding and reports that knee has gotten worse since then. Prior to surgery pt said that knee hurt along patellar tendon. Pt reports that knee has been better since surgery, but still bugs her. She was apprehensive about laying on her L side. Pt reports that she feels a general numbness down the anterior aspect of her L thigh . Treatment Goals Patient/Caregiver Goals Pt's goal is to be able to walk around [place] and walk up stairs with a reciprocal gait pattern, improve her posture, and walk evenly. PT-OP-C Subjective Start: 01/07/19 08:07 Freq: Status: Active Protocol: Document 03/18/19 09:52 [facility] (Rec: 03/18/19 10:31 LR [id number]) OP-PT Subjective Patient Comments Patient Comments Pt reports she has gotten in some walking since last time. SHe wants to check on her hip lifts PT-OP-G Mobility & Gait Start: 01/07/19 08:07 Freq: Status: Active Protocol: Document 01/07/19 08:08 MT (Rec: 01/07/19 14:52 MT [id number]) OP Gait Assessment Comments Gait Comments Pt limps when she walks and has a L lateral trunk lean. She has very little push off of the L leg and is not able to get her L hip or knee to fully extend, and instead externally rotated her pelvis to propel forward. Pt performed bilateral mini squat to assess knee alignment . Pt's L knee moves laterally over 4th digit and pt's R knee goes medially beyond 1st toe. PT-OP-J Posture/Palpation/Skin Start: 01/07/19 08:07 Freq: Status: Active Protocol: Document 01/07/19 08:08 MT (Rec: 01/07/19 14:52 MT [id number]) Posture Evaluation Comments Posture Comments Pt sits with a R lateral lean in order to offload L hip during sitting. Skin Assessment Incisional Assessment Incision Appearance/Comments Pt incision on L groin/ant thigh area appears mostly closed up. Only slight pink coloration to inferior aspect of wound. No drainage. residual adhesive surrounding wound. PT-OP-K Range of Motion Start: 01/07/19 08:07 Freq: Status: Active Protocol: Document 01/07/19 08:08 MT (Rec: 01/07/19 14:52 MT [id number]) Hip Goniometric Range of Motion Hip Left Hip ROM WFL Yes Testing Position Supine Flexion w/Knee Flexed 119 Right Hip ROM WFL Yes Testing Position Supine Flexion w/Knee Flexed 92 Knee Goniometric Range of Motion Knee Left Knee ROM WFL Yes Patient Position Sitting Flexion Active (degrees) 144 Extension Active (degrees) 11 Right Knee ROM WFL Yes Patient Position Sitting Flexion Active (degrees) 142 Extension Active (degrees) 0 Knee ROM Limitations Comments Pt lacking 11 degrees of full L knee ext. Pt's knee extension performed in sitting and knee flexion performed in supine. Ankle and Foot Goniometric Range of Motion Ankle and Foot Left Ankle/Foot ROM WFL Yes Testing Position Sitting Dorsiflexion with Knee Flexed 9 Plantarflexion 65 Right Ankle/Foot ROM WFL Yes Testing Position Sitting Dorsiflexion with Knee Flexed 12 Plantarflexion 65 PT-OP-M Strength Start: 01/07/19 08:07 Freq: Status: Active Protocol: Document 03/11/19 09:59 [facility] (Rec: 03/11/19 11:55 [facility] [id number]) Hip Strength Hip Manual Muscle Testing Left Flexion (L2) 4 Good Extension (S1) 3+ Fair+ Abduction 4 Good Adduction 4 Good External Rotation 4- Good- Internal Rotation 5 Normal Right Flexion (L2) 5 Normal Extension (S1) 4+ Good+ Abduction 5 Normal Adduction 5 Normal External Rotation 4+ Good+ Internal Rotation 4 Good Knee Strength Knee Manual Muscle Testing Left Flexion (S2) 5 Normal Extension (L3) 4+ Good+ Right Flexion (S2) 5 Normal Extension (L3) 5 Normal Ankle/Foot Strength Ankle and Foot Manual Muscle Testing Left Dorsiflexion (L4) 5 Normal Plantarflexion (S1) 5 Normal Comments tested in standing Right Dorsiflexion (L4) 5 Normal Plantarflexion (S1) 5 Normal PT-OP-Q Treatments Start: 01/07/19 08:07 Freq: Status: Active Protocol: Document 03/18/19 09:52 [facility] (Rec: 03/18/19 10:31 [facility] [id number]) Cardio Equipment Recumbent Stepper (Sci-Fit) Duration (Minutes) 6 Resistance 7 Seat Position 8 Therapeutic Exercises Supine Exercises Hip ER Supine Exercise Name core stability focus Side bilateral Reps/Minutes 15 Standing Exercises hip hike Standing Exercise Name focus on post depression & ant elevation vs post elevation Side bilateral Reps/Minutes 2x10 hip ext Standing Exercise Name gait at wall Side bilateral Reps/Minutes 10 sec x5 side stepping Side bilateral Reps/Minutes 20ftx2 Gait Training Gait Activity gait Description focus on push off Manual Therapy Treatment Soft Tissue Mobilization w/hip rotation Body Location L adductors, iliacus & inguinal ligament Mobilization Type Rolling,Strumming Joint Mobilizations innominate Joint L Direction ER FM PT-OP-T Assessment and Plan Start: 01/07/19 08:07 Freq: Status: Active Protocol: Document 03/18/19 09:52 [facility] (Rec: 03/18/19 10:32 [facility] [id number]) Physical Therapy Assessment Goals stairs Short Term Goal (STG) pt will be able to equally accept weight onto her L and R LE in standing STG Duration achieved Group Director Experience Goal (LTG) pt will be able to ascend/ descend stairs with a reciprocal step through gait pattern LTG Duration achieved ROM Short Term Goal (STG) Pt will be able to clip toenails w/o difficulty. STG Duration 04/11/19 Penitentiary Goal (LTG) pt will increase hip flexion range to 110 to be able to don /doff sock/shoe independently without increase in pain LTG Duration achieved LEFS Short Term Goal (STG) Pt will report being able get up/dopwn from a chair or squat down with good body mechanics and no increase in pain. STG Duration achieved Group Director Experience Goal (LTG) Pt will increase her LEFS score to 60/80 to demonstrate improved ability to carry out functional tasks and ADL's 03/11-58/80 LTG Duration 05/08/19 ambulation Short Term Goal (STG) Pt will be able to demonstrate ambulation without deviations and without aggravation of symptoms. 02/11 improving mild deviations STG Duration achieved Penitentiary Goal (LTG) Pt will be able to ambulate around [place] LTG Duration 05/08/19 strength Short Term Goal (STG) pt will be independent and adhere to HEP STG Duration achieved progressing as needed Penitentiary Goal (LTG) Pt will increase B LE strength to at least a 4+/5 for improved ability for gait and functional ADL's 03/11-excellent progress LTG Duration 05/08/19 Assessment Summary Assessment Pt improved with exercise perormance with cuieng for posture in standing and cueing for core engagment in supine. Improved gait but still tends to get pelvic ER with push off. Physical Therapy Plan Frequency and Duration Frequency of Treatment 1-2x/Week Duration of Treatment 2 months Plan of Care Start Date 03/11/19 Plan of Care End Date 05/10/19 Next Visit Focus/Plan Next Note Type Treatment Note Next Visit Plan cont to work on PNF patterns, work on soft tissue of hip and thigh to improve ROM and dec knee pain with hip motions, balance, wt shifting & acceptance
--- NOTE | 2019-03-25 10:33 | PT.OTN ---
Current Diagnoses Pain in unspecified hip (03/25/19) Physical Therapy Treatment Note PT-OP-A Visit Information Start: 01/07/19 08:07 Freq: Status: Active Protocol: Document 03/25/19 09:53 [facility] (Rec: 03/25/19 10:32 [facility] [id number]) Out-Patient Physical Therapy Visit Information Visit Information Visit Type Treatment Note Visit Note 04/29 Visit Start Time 09:49 Visit Stop Time 10:28 Total Visit Minutes 39 Visit Number 16 Number of [employer] P[employer] INTERLEAFER Visits 0 PT-OP-B Current Condition Start: 01/07/19 08:07 Freq: Status: Active Protocol: Document 01/07/19 08:08 MT (Rec: 01/07/19 14:52 MT [id number]) Current Condition History of Current Condition Onset Date 12/17/18 Current Complaints s/p anterior L FARHANA History of Current Condition Pt had anterior ttoal hip replacement at [facility] on . Pt was given no precautions from her surgeon. Pt went into chiropractor last monday and said she had her knee put back in place. Intermittent knee pain for past 5-6 years and sometimes doesnt feel like it always lines up correctly. Pt reports swelling in medial knee throughout day. Pt limps during gait with a left lateral trunk lean. Pt feels like she is putting equal weight through her feet now that she has had the surgery. DOes not hurt to sit, but leans towards the right side when sitting to offload L hip. This was the first tiome today that she drove, but is not able to turn over her shoulder completely towards the right. Pt struggles putting on socks and is only able to slip on shoes on L foot. 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 Pt's knee has been bugging her for about 5-6 years after a fall while birding and reports that knee has gotten worse since then. Prior to surgery pt said that knee hurt along patellar tendon. Pt reports that knee has been better since surgery, but still bugs her. She was apprehensive about laying on her L side. Pt reports that she feels a general numbness down the anterior aspect of her L thigh . Treatment Goals Patient/Caregiver Goals Pt's goal is to be able to walk around [place] and walk up stairs with a reciprocal gait pattern, improve her posture, and walk evenly. PT-OP-C Subjective Start: 01/07/19 08:07 Freq: Status: Active Protocol: Document 03/25/19 09:53 [facility] (Rec: 03/25/19 10:32 [facility] [id number]) OP-PT Subjective Patient Comments Patient Comments Pt reports her LB & her olea is a little sore along with buttock region. NOtes she feels like she is pushing off better. PT-OP-G Mobility & Gait Start: 01/07/19 08:07 Freq: Status: Active Protocol: Document 01/07/19 08:08 MT (Rec: 01/07/19 14:52 MT [id number]) OP Gait Assessment Comments Gait Comments Pt limps when she walks and has a L lateral trunk lean. She has very little push off of the L leg and is not able to get her L hip or knee to fully extend, and instead externally rotated her pelvis to propel forward. Pt performed bilateral mini squat to assess knee alignment . Pt's L knee moves laterally over 4th digit and pt's R knee goes medially beyond 1st toe. PT-OP-J Posture/Palpation/Skin Start: 01/07/19 08:07 Freq: Status: Active Protocol: Document 01/07/19 08:08 MT (Rec: 01/07/19 14:52 MT [id number]) Posture Evaluation Comments Posture Comments Pt sits with a R lateral lean in order to offload L hip during sitting. Skin Assessment Incisional Assessment Incision Appearance/Comments Pt incision on L groin/ant thigh area appears mostly closed up. Only slight pink coloration to inferior aspect of wound. No drainage. residual adhesive surrounding wound. PT-OP-K Range of Motion Start: 01/07/19 08:07 Freq: Status: Active Protocol: Document 01/07/19 08:08 MT (Rec: 01/07/19 14:52 MT [id number]) Hip Goniometric Range of Motion Hip Left Hip ROM WFL Yes Testing Position Supine Flexion w/Knee Flexed 119 Right Hip ROM WFL Yes Testing Position Supine Flexion w/Knee Flexed 92 Knee Goniometric Range of Motion Knee Left Knee ROM WFL Yes Patient Position Sitting Flexion Active (degrees) 144 Extension Active (degrees) 11 Right Knee ROM WFL Yes Patient Position Sitting Flexion Active (degrees) 142 Extension Active (degrees) 0 Knee ROM Limitations Comments Pt lacking 11 degrees of full L knee ext. Pt's knee extension performed in sitting and knee flexion performed in supine. Ankle and Foot Goniometric Range of Motion Ankle and Foot Left Ankle/Foot ROM WFL Yes Testing Position Sitting Dorsiflexion with Knee Flexed 9 Plantarflexion 65 Right Ankle/Foot ROM WFL Yes Testing Position Sitting Dorsiflexion with Knee Flexed 12 Plantarflexion 65 PT-OP-M Strength Start: 01/07/19 08:07 Freq: Status: Active Protocol: Document 03/11/19 09:59 [facility] (Rec: 03/11/19 11:55 [facility] [id number]) Hip Strength Hip Manual Muscle Testing Left Flexion (L2) 4 Good Extension (S1) 3+ Fair+ Abduction 4 Good Adduction 4 Good External Rotation 4- Good- Internal Rotation 5 Normal Right Flexion (L2) 5 Normal Extension (S1) 4+ Good+ Abduction 5 Normal Adduction 5 Normal External Rotation 4+ Good+ Internal Rotation 4 Good Knee Strength Knee Manual Muscle Testing Left Flexion (S2) 5 Normal Extension (L3) 4+ Good+ Right Flexion (S2) 5 Normal Extension (L3) 5 Normal Ankle/Foot Strength Ankle and Foot Manual Muscle Testing Left Dorsiflexion (L4) 5 Normal Plantarflexion (S1) 5 Normal Comments tested in standing Right Dorsiflexion (L4) 5 Normal Plantarflexion (S1) 5 Normal PT-OP-Q Treatments Start: 01/07/19 08:07 Freq: Status: Active Protocol: Document 03/25/19 09:53 [facility] (Rec: 03/25/19 10:32 [facility] [id number]) Cardio Equipment Recumbent Stepper (Sci-Fit) Duration (Minutes) 6 Resistance 7 Seat Position 8 Gait Training Gait Activity wt shift Comments 1.in mirror for foucs on push off to wt acceptance 2. SLS to focus on stance phase Manual Therapy Treatment Soft Tissue Mobilization scar tissue Comments w/IR/ER iliacus Body Location w/c/r into flex Joint Mobilizations innominate Joint L Direction flex FM PT-OP-T Assessment and Plan Start: 01/07/19 08:07 Freq: Status: Active Protocol: Document 03/25/19 09:53 [facility] (Rec: 03/25/19 10:32 [facility] [id number]) Physical Therapy Assessment Goals ROM Short Term Goal (STG) Pt will be able to clip toenails w/o difficulty. STG Duration 04/11/19 Tool Crib Supervisor Goal (LTG) pt will increase hip flexion range to 110 to be able to don /doff sock/shoe independently without increase in pain LTG Duration achieved LEFS Short Term Goal (STG) Pt will report being able get up/dopwn from a chair or squat down with good body mechanics and no increase in pain. STG Duration achieved Tool Crib Supervisor Goal (LTG) Pt will increase her LEFS score to 60/80 to demonstrate improved ability to carry out functional tasks and ADL's 03/11- LTG Duration 05/08/19 ambulation Short Term Goal (STG) Pt will be able to demonstrate ambulation without deviations and without aggravation of symptoms. 02/11 improving mild deviations STG Duration achieved Tool Crib Supervisor Goal (LTG) Pt will be able to ambulate around [place] LTG Duration 05/08/19 strength Short Term Goal (STG) pt will be independent and adhere to HEP STG Duration achieved progressing as needed Tool Crib Supervisor Goal (LTG) Pt will increase B LE strength to at least a 4+/5 for improved ability for gait and functional ADL's 03/11-excellent progress LTG Duration 05/08/19 Assessment Summary Assessment Pt had improved hip flex after manual treatment. She had improved gait with dec knee pain after working on gait in mirror. Physical Therapy Plan Frequency and Duration Frequency of Treatment 1-2x/Week Duration of Treatment 2 months Plan of Care Start Date 03/11/19 Plan of Care End Date 05/10/19 Next Visit Focus/Plan Next Note Type Treatment Note Next Visit Plan cont to work on PNF patterns, work on soft tissue of hip and thigh to improve ROM and dec knee pain with hip motions, balance, wt shifting & acceptance
--- NOTE | 2019-04-03 14:54 | PT.OTN ---
Current Diagnoses Pain in unspecified hip (04/03/19) Physical Therapy Treatment Note PT-OP-A Visit Information Start: 01/07/19 08:07 Freq: Status: Active Protocol: Document 04/03/19 09:11 [facility] (Rec: 04/03/19 14:54 [facility] [id number]) Out-Patient Physical Therapy Visit Information Visit Information Visit Type Treatment Note Visit Start Time 09:06 Visit Stop Time 09:44 Total Visit Minutes 38 Visit Number 17 Number of SLIP COVER OPERATOR Visits 0 PT-OP-B Current Condition Start: 01/07/19 08:07 Freq: Status: Active Protocol: Document 01/07/19 08:08 MT (Rec: 01/07/19 14:52 MT [id number]) Current Condition History of Current Condition Onset Date 12/17/18 Current Complaints s/p anterior L FARHANA History of Current Condition Pt had anterior ttoal hip replacement at [facility] on . Pt was given no precautions from her surgeon. Pt went into chiropractor last monday and said she had her knee put back in place. Intermittent knee pain for past 5-6 years and sometimes doesnt feel like it always lines up correctly. Pt reports swelling in medial knee throughout day. Pt limps during gait with a left lateral trunk lean. Pt feels like she is putting equal weight through her feet now that she has had the surgery. DOes not hurt to sit, but leans towards the right side when sitting to offload L hip. This was the first tiome today that she drove, but is not able to turn over her shoulder completely towards the right. Pt struggles putting on socks and is only able to slip on shoes on L foot. 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 Pt's knee has been bugging her for about 5-6 years after a fall while birding and reports that knee has gotten worse since then. Prior to surgery pt said that knee hurt along patellar tendon. Pt reports that knee has been better since surgery, but still bugs her. She was apprehensive about laying on her L side. Pt reports that she feels a general numbness down the anterior aspect of her L thigh . Treatment Goals Patient/Caregiver Goals Pt's goal is to be able to walk around [place] and walk up stairs with a reciprocal gait pattern, improve her posture, and walk evenly. PT-OP-C Subjective Start: 01/07/19 08:07 Freq: Status: Active Protocol: Document 04/03/19 09:11 [facility] (Rec: 04/03/19 14:54 [facility] [id number]) OP-PT Subjective Patient Comments Patient Comments Pt reports overall doing better. she has walked [place] park acouple times PT-OP-G Mobility & Gait Start: 01/07/19 08:07 Freq: Status: Active Protocol: Document 01/07/19 08:08 [facility] (Rec: 01/07/19 14:52 [facility] [id number]) OP Gait Assessment Comments Gait Comments Pt limps when she walks and has a L lateral trunk lean. She has very little push off of the L leg and is not able to get her L hip or knee to fully extend, and instead externally rotated her pelvis to propel forward. Pt performed bilateral mini squat to assess knee alignment . Pt's L knee moves laterally over 4th digit and pt's R knee goes medially beyond 1st toe. PT-OP-J Posture/Palpation/Skin Start: 01/07/19 08:07 Freq: Status: Active Protocol: Document 01/07/19 08:08 MT (Rec: 01/07/19 14:52 MT [id number]) Posture Evaluation Comments Posture Comments Pt sits with a R lateral lean in order to offload L hip during sitting. Skin Assessment Incisional Assessment Incision Appearance/Comments Pt incision on L groin/ant thigh area appears mostly closed up. Only slight pink coloration to inferior aspect of wound. No drainage. residual adhesive surrounding wound. PT-OP-K Range of Motion Start: 01/07/19 08:07 Freq: Status: Active Protocol: Document 01/07/19 08:08 MT (Rec: 01/07/19 14:52 MT [id number]) Hip Goniometric Range of Motion Hip Left Hip ROM WFL Yes Testing Position Supine Flexion w/Knee Flexed 119 Right Hip ROM WFL Yes Testing Position Supine Flexion w/Knee Flexed 92 Knee Goniometric Range of Motion Knee Left Knee ROM WFL Yes Patient Position Sitting Flexion Active (degrees) 144 Extension Active (degrees) 11 Right Knee ROM WFL Yes Patient Position Sitting Flexion Active (degrees) 142 Extension Active (degrees) 0 Knee ROM Limitations Comments Pt lacking 11 degrees of full L knee ext. Pt's knee extension performed in sitting and knee flexion performed in supine. Ankle and Foot Goniometric Range of Motion Ankle and Foot Left Ankle/Foot ROM WFL Yes Testing Position Sitting Dorsiflexion with Knee Flexed 9 Plantarflexion 65 Right Ankle/Foot ROM WFL Yes Testing Position Sitting Dorsiflexion with Knee Flexed 12 Plantarflexion 65 PT-OP-M Strength Start: 01/07/19 08:07 Freq: Status: Active Protocol: Document 03/11/19 09:59 [facility] (Rec: 03/11/19 11:55 [facility] [id number]) Hip Strength Hip Manual Muscle Testing Left Flexion (L2) 4 Good Extension (S1) 3+ Fair+ Abduction 4 Good Adduction 4 Good External Rotation 4- Good- Internal Rotation 5 Normal Right Flexion (L2) 5 Normal Extension (S1) 4+ Good+ Abduction 5 Normal Adduction 5 Normal External Rotation 4+ Good+ Internal Rotation 4 Good Knee Strength Knee Manual Muscle Testing Left Flexion (S2) 5 Normal Extension (L3) 4+ Good+ Right Flexion (S2) 5 Normal Extension (L3) 5 Normal Ankle/Foot Strength Ankle and Foot Manual Muscle Testing Left Dorsiflexion (L4) 5 Normal Plantarflexion (S1) 5 Normal Comments tested in standing Right Dorsiflexion (L4) 5 Normal Plantarflexion (S1) 5 Normal PT-OP-Q Treatments Start: 01/07/19 08:07 Freq: Status: Active Protocol: Document 04/03/19 09:11 [facility] (Rec: 04/03/19 14:54 [facility] [id number]) Cardio Equipment Recumbent Bicycle Duration (Minutes) 6 Resistance 8 Seat Position 3 Gym Equipment Sport Cord wt shift Cord/Resistance red Comments progressed to gait in mirror with focus on push off Gait Training Gait Activity gait Description focus on push off wt shift Comments 1.in mirror for foucs on push off to wt acceptance 2. SLS to focus on stance phase Manual Therapy Treatment Soft Tissue Mobilization w/hip rotation Body Location L adductors & circumfrential MFR Taping KT Body Location knee for med patellar glide 2 Y stirps PT-OP-T Assessment and Plan Start: 01/07/19 08:07 Freq: Status: Active Protocol: Document 04/03/19 09:11 [facility] (Rec: 04/03/19 14:54 [facility] [id number]) Physical Therapy Assessment Goals ROM Short Term Goal (STG) Pt will be able to clip toenails w/o difficulty. STG Duration achieved Halfway Goal (LTG) pt will increase hip flexion range to 110 to be able to don /doff sock/shoe independently without increase in pain LTG Duration achieved LEFS Short Term Goal (STG) Pt will report being able get up/dopwn from a chair or squat down with good body mechanics and no increase in pain. STG Duration achieved Gardening Manager Goal (LTG) Pt will increase her LEFS score to 60/80 to demonstrate improved ability to carry out functional tasks and ADL's 03/11- LTG Duration 05/08/19 ambulation Short Term Goal (STG) Pt will be able to demonstrate ambulation without deviations and without aggravation of symptoms. 02/11 improving mild deviations STG Duration achieved Gardening Manager Goal (LTG) Pt will be able to ambulate around [place] LTG Duration achieved strength Short Term Goal (STG) pt will be independent and adhere to HEP STG Duration achieved progressing as needed Gardening Manager Goal (LTG) Pt will increase B LE strength to at least a 4+/5 for improved ability for gait and functional ADL's 03/11-excellent progress LTG Duration 05/08/19 Assessment Summary Assessment Pt improved with gait mechanics significantly today with improved ability to wt accept. Cont to require cueing but was able to get improved post depression todaywith less pelvic rotation. Physical Therapy Plan Frequency and Duration Frequency of Treatment 1-2x/Week Duration of Treatment 2 months Plan of Care Start Date 03/11/19 Plan of Care End Date 05/10/19 Next Visit Focus/Plan Next Note Type Treatment Note Next Visit Plan cont to work on PNF patterns, work on soft tissue of hip and thigh to improve ROM and dec knee pain with hip motions, balance, wt shifting & acceptance
--- NOTE | 2019-04-09 17:57 | PT.OTN ---
Current Diagnoses Pain in unspecified hip (04/09/19) Physical Therapy Treatment Note PT-OP-A Visit Information Start: 01/07/19 08:07 Freq: Status: Active Protocol: Document 04/09/19 13:56 [facility] (Rec: 04/09/19 17:57 [facility] [id number]) Out-Patient Physical Therapy Visit Information Visit Information Visit Type Treatment Note Visit Start Time 13:50 Visit Stop Time 14:30 Total Visit Minutes 40 Visit Number 18 Number of INFORMATION SECURITY SPECIALIST Visits 0 PT-OP-B Current Condition Start: 01/07/19 08:07 Freq: Status: Active Protocol: Document 01/07/19 08:08 [facility] (Rec: 01/07/19 14:52 MT [id number]) Current Condition History of Current Condition Onset Date 12/17/18 Current Complaints s/p anterior L FARHANA History of Current Condition Pt had anterior ttoal hip replacement at [facility] on . Pt was given no precautions from her surgeon. Pt went into chiropractor last monday and said she had her knee put back in place. Intermittent knee pain for past 5-6 years and sometimes doesnt feel like it always lines up correctly. Pt reports swelling in medial knee throughout day. Pt limps during gait with a left lateral trunk lean. Pt feels like she is putting equal weight through her feet now that she has had the surgery. DOes not hurt to sit, but leans towards the right side when sitting to offload L hip. This was the first tiome today that she drove, but is not able to turn over her shoulder completely towards the right. Pt struggles putting on socks and is only able to slip on shoes on L foot. 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 Pt's knee has been bugging her for about 5-6 years after a fall while birding and reports that knee has gotten worse since then. Prior to surgery pt said that knee hurt along patellar tendon. Pt reports that knee has been better since surgery, but still bugs her. She was apprehensive about laying on her L side. Pt reports that she feels a general numbness down the anterior aspect of her L thigh . Treatment Goals Patient/Caregiver Goals Pt's goal is to be able to walk around [place] and walk up stairs with a reciprocal gait pattern, improve her posture, and walk evenly. PT-OP-C Subjective Start: 01/07/19 08:07 Freq: Status: Active Protocol: Document 04/09/19 13:56 [facility] (Rec: 04/09/19 17:57 [facility] [id number]) OP-PT Subjective Patient Comments Patient Comments Pt reports that the top of her instep hurts and after a while it improves. WHen walking, she has some med paint hat feels like 2 things are banging together which dec a little after walking some but doesn't go away. Has been doing [employer] park. Has not gotten on any trails. Patient Reported Progress Improving PT-OP-G Mobility & Gait Start: 01/07/19 08:07 Freq: Status: Active Protocol: Document 01/07/19 08:08 [facility] (Rec: 01/07/19 14:52 MT [id number]) OP Gait Assessment Comments Gait Comments Pt limps when she walks and has a L lateral trunk lean. She has very little push off of the L leg and is not able to get her L hip or knee to fully extend, and instead externally rotated her pelvis to propel forward. Pt performed bilateral mini squat to assess knee alignment . Pt's L knee moves laterally over 4th digit and pt's R knee goes medially beyond 1st toe. PT-OP-J Posture/Palpation/Skin Start: 01/07/19 08:07 Freq: Status: Active Protocol: Document 01/07/19 08:08 [facility] (Rec: 01/07/19 14:52 MT [id number]) Posture Evaluation Comments Posture Comments Pt sits with a R lateral lean in order to offload L hip during sitting. Skin Assessment Incisional Assessment Incision Appearance/Comments Pt incision on L groin/ant thigh area appears mostly closed up. Only slight pink coloration to inferior aspect of wound. No drainage. residual adhesive surrounding wound. PT-OP-K Range of Motion Start: 01/07/19 08:07 Freq: Status: Active Protocol: Document 01/07/19 08:08 [facility] (Rec: 01/07/19 14:52 MT [id number]) Hip Goniometric Range of Motion Hip Left Hip ROM WFL Yes Testing Position Supine Flexion w/Knee Flexed 119 Right Hip ROM WFL Yes Testing Position Supine Flexion w/Knee Flexed 92 Knee Goniometric Range of Motion Knee Left Knee ROM WFL Yes Patient Position Sitting Flexion Active (degrees) 144 Extension Active (degrees) 11 Right Knee ROM WFL Yes Patient Position Sitting Flexion Active (degrees) 142 Extension Active (degrees) 0 Knee ROM Limitations Comments Pt lacking 11 degrees of full L knee ext. Pt's knee extension performed in sitting and knee flexion performed in supine. Ankle and Foot Goniometric Range of Motion Ankle and Foot Left Ankle/Foot ROM WFL Yes Testing Position Sitting Dorsiflexion with Knee Flexed 9 Plantarflexion 65 Right Ankle/Foot ROM WFL Yes Testing Position Sitting Dorsiflexion with Knee Flexed 12 Plantarflexion 65 PT-OP-M Strength Start: 01/07/19 08:07 Freq: Status: Active Protocol: Document 03/11/19 09:59 [facility] (Rec: 03/11/19 11:55 [facility] [id number]) Hip Strength Hip Manual Muscle Testing Left Flexion (L2) 4 Good Extension (S1) 3+ Fair+ Abduction 4 Good Adduction 4 Good External Rotation 4- Good- Internal Rotation 5 Normal Right Flexion (L2) 5 Normal Extension (S1) 4+ Good+ Abduction 5 Normal Adduction 5 Normal External Rotation 4+ Good+ Internal Rotation 4 Good Knee Strength Knee Manual Muscle Testing Left Flexion (S2) 5 Normal Extension (L3) 4+ Good+ Right Flexion (S2) 5 Normal Extension (L3) 5 Normal Ankle/Foot Strength Ankle and Foot Manual Muscle Testing Left Dorsiflexion (L4) 5 Normal Plantarflexion (S1) 5 Normal Comments tested in standing Right Dorsiflexion (L4) 5 Normal Plantarflexion (S1) 5 Normal PT-OP-Q Treatments Start: 01/07/19 08:07 Freq: Status: Active Protocol: Document 04/09/19 13:56 [facility] (Rec: 04/09/19 17:57 [facility] [id number]) Cardio Equipment Recumbent Bicycle Duration (Minutes) 6 Resistance 8 Seat Position 2 Gait Training Gait Activity gait Description focus on push off and knee ext in push off in mirror Comments also faciliated gait with ant elevation faciliation & resisted gait with dowel wt shift Comments 1.in mirror for foucs on push off to wt acceptance 2. SLS to focus on stance phase Manual Therapy Treatment Soft Tissue Mobilization iliacus Body Location L Mobilization Type Strumming Intensity/Depth Moderate Joint Mobilizations innominate Joint L Direction ER FM PT-OP-T Assessment and Plan Start: 01/07/19 08:07 Freq: Status: Active Protocol: Document 04/09/19 13:56 [facility] (Rec: 04/09/19 17:57 [facility] [id number]) Physical Therapy Assessment Goals ROM Short Term Goal (STG) Pt will be able to clip toenails w/o difficulty. STG Duration achieved Policy Writer Goal (LTG) pt will increase hip flexion range to 110 to be able to don /doff sock/shoe independently without increase in pain LTG Duration achieved LEFS Short Term Goal (STG) Pt will report being able get up/dopwn from a chair or squat down with good body mechanics and no increase in pain. STG Duration achieved Policy Writer Goal (LTG) Pt will increase her LEFS score to 60/80 to demonstrate improved ability to carry out functional tasks and ADL's 03/11- LTG Duration 05/08/19 ambulation Short Term Goal (STG) Pt will be able to demonstrate ambulation without deviations and without aggravation of symptoms. 02/11 improving mild deviations STG Duration achieved Prison Goal (LTG) Pt will be able to ambulate around [place] LTG Duration achieved strength Short Term Goal (STG) pt will be independent and adhere to HEP STG Duration achieved progressing as needed Prison Goal (LTG) Pt will increase B LE strength to at least a 4+/5 for improved ability for gait and functional ADL's 03/11-excellent progress LTG Duration 05/08/19 Assessment Summary Assessment Pt cont to improve signficiantly with gait and we were able to prevent pain by focusing on knee ext through push off phase of gait. She has signficant restriction still into ER which likely contributes to her knee pain as femur is IR in standing. Physical Therapy Plan Frequency and Duration Frequency of Treatment 1-2x/Week Duration of Treatment 2 months Plan of Care Start Date 03/11/19 Plan of Care End Date 05/10/19 Next Visit Focus/Plan Next Note Type Treatment Note Next Visit Plan cont to work on standing femur positioning to more neutral, work on push off with gait
--- NOTE | 2019-04-15 18:48 | PT.OTN ---
Current Diagnoses Pain in unspecified hip (04/15/19) Physical Therapy Treatment Note PT-OP-A Visit Information Start: 01/07/19 08:07 Freq: Status: Active Protocol: Document 04/15/19 14:45 LR (Rec: 04/15/19 18:46 [facility] [id number]) Out-Patient Physical Therapy Visit Information Visit Information Visit Type Treatment Note Visit Start Time 14:35 Visit Stop Time 15:15 Total Visit Minutes 40 Visit Number 19 Number of SPEAKER MOUNTER Visits 0 PT-OP-B Current Condition Start: 01/07/19 08:07 Freq: Status: Active Protocol: Document 01/07/19 08:08 MT (Rec: 01/07/19 14:52 MT [id number]) Current Condition History of Current Condition Onset Date 12/17/18 Current Complaints s/p anterior L FARHANA History of Current Condition Pt had anterior ttoal hip replacement at [facility] on . Pt was given no precautions from her surgeon. Pt went into chiropractor last monday and said she had her knee put back in place. Intermittent knee pain for past 5-6 years and sometimes doesnt feel like it always lines up correctly. Pt reports swelling in medial knee throughout day. Pt limps during gait with a left lateral trunk lean. Pt feels like she is putting equal weight through her feet now that she has had the surgery. DOes not hurt to sit, but leans towards the right side when sitting to offload L hip. This was the first tiome today that she drove, but is not able to turn over her shoulder completely towards the right. Pt struggles putting on socks and is only able to slip on shoes on L foot. 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 Pt's knee has been bugging her for about 5-6 years after a fall while birding and reports that knee has gotten worse since then. Prior to surgery pt said that knee hurt along patellar tendon. Pt reports that knee has been better since surgery, but still bugs her. She was apprehensive about laying on her L side. Pt reports that she feels a general numbness down the anterior aspect of her L thigh . Treatment Goals Patient/Caregiver Goals Pt's goal is to be able to walk around [employer] and walk up stairs with a reciprocal gait pattern, improve her posture, and walk evenly. PT-OP-C Subjective Start: 01/07/19 08:07 Freq: Status: Active Protocol: Document 04/15/19 14:45 [facility] (Rec: 04/15/19 18:46 LR [id number]) OP-PT Subjective Patient Comments Patient Comments Pt reports bottom of L foot bothering her, but she took off a small piece from her orthotic and it felt better. Patient Reported Progress Improving PT-OP-G Mobility & Gait Start: 01/07/19 08:07 Freq: Status: Active Protocol: Document 01/07/19 08:08 MT (Rec: 01/07/19 14:52 MT [id number]) OP Gait Assessment Comments Gait Comments Pt limps when she walks and has a L lateral trunk lean. She has very little push off of the L leg and is not able to get her L hip or knee to fully extend, and instead externally rotated her pelvis to propel forward. Pt performed bilateral mini squat to assess knee alignment . Pt's L knee moves laterally over 4th digit and pt's R knee goes medially beyond 1st toe. PT-OP-J Posture/Palpation/Skin Start: 01/07/19 08:07 Freq: Status: Active Protocol: Document 01/07/19 08:08 MT (Rec: 01/07/19 14:52 MT [id number]) Posture Evaluation Comments Posture Comments Pt sits with a R lateral lean in order to offload L hip during sitting. Skin Assessment Incisional Assessment Incision Appearance/Comments Pt incision on L groin/ant thigh area appears mostly closed up. Only slight pink coloration to inferior aspect of wound. No drainage. residual adhesive surrounding wound. PT-OP-K Range of Motion Start: 01/07/19 08:07 Freq: Status: Active Protocol: Document 01/07/19 08:08 MT (Rec: 01/07/19 14:52 MT [id number]) Hip Goniometric Range of Motion Hip Left Hip ROM WFL Yes Testing Position Supine Flexion w/Knee Flexed 119 Right Hip ROM WFL Yes Testing Position Supine Flexion w/Knee Flexed 92 Knee Goniometric Range of Motion Knee Left Knee ROM WFL Yes Patient Position Sitting Flexion Active (degrees) 144 Extension Active (degrees) 11 Right Knee ROM WFL Yes Patient Position Sitting Flexion Active (degrees) 142 Extension Active (degrees) 0 Knee ROM Limitations Comments Pt lacking 11 degrees of full L knee ext. Pt's knee extension performed in sitting and knee flexion performed in supine. Ankle and Foot Goniometric Range of Motion Ankle and Foot Left Ankle/Foot ROM WFL Yes Testing Position Sitting Dorsiflexion with Knee Flexed 9 Plantarflexion 65 Right Ankle/Foot ROM WFL Yes Testing Position Sitting Dorsiflexion with Knee Flexed 12 Plantarflexion 65 PT-OP-M Strength Start: 01/07/19 08:07 Freq: Status: Active Protocol: Document 04/15/19 14:45 [facility] (Rec: 04/15/19 18:46 [facility] [id number]) Hip Strength Hip Manual Muscle Testing Left Flexion (L2) 4 Good Extension (S1) 4- Good- Abduction 4- Good- Adduction 4 Good External Rotation 4 Good Internal Rotation 5 Normal Right Flexion (L2) 4 Good Extension (S1) 4 Good Abduction 4 Good Adduction 5 Normal External Rotation 4+ Good+ Internal Rotation 4+ Good+ Knee Strength Knee Manual Muscle Testing Left Flexion (S2) 5 Normal Extension (L3) 4+ Good+ Right Flexion (S2) 5 Normal Extension (L3) 5 Normal Ankle/Foot Strength Ankle and Foot Manual Muscle Testing Left Dorsiflexion (L4) 5 Normal Plantarflexion (S1) 5 Normal Comments tested in standing Right Dorsiflexion (L4) 5 Normal Plantarflexion (S1) 5 Normal PT-OP-Q Treatments Start: 01/07/19 08:07 Freq: Status: Active Protocol: Document 04/15/19 14:45 [facility] (Rec: 04/15/19 18:46 [facility] [id number]) Cardio Equipment Recumbent Bicycle Duration (Minutes) 6 Resistance 8 Seat Position 2 Therapeutic Exercises Standing Exercises wall posture Standing Exercise Name wall roll up with 90/90 ER with focus on core Reps/Minutes 10 Gait Training Gait Activity gait Comments 1. wt shifts 2. foucs on gait without pelvis rotation & relax UEs 3. resisted gait Self-Care/Home Management Treatment Education Patient Education Home Exercise Program Other Education edu on importance of cont to gradaully progress activity PT-OP-T Assessment and Plan Start: 01/07/19 08:07 Freq: Status: Active Protocol: Document 04/15/19 14:45 [facility] (Rec: 04/15/19 18:46 [facility] [id number]) Physical Therapy Assessment Goals ROM Short Term Goal (STG) Pt will be able to clip toenails w/o difficulty. STG Duration achieved Tiler Goal (LTG) pt will increase hip flexion range to 110 to be able to don /doff sock/shoe independently without increase in pain LTG Duration achieved LEFS Short Term Goal (STG) Pt will report being able get up/dopwn from a chair or squat down with good body mechanics and no increase in pain. STG Duration achieved Senior Living Goal (LTG) Pt will increase her LEFS score to 60/80 to demonstrate improved ability to carry out functional tasks and ADL's 03/11- LTG Duration 05/08/19 ambulation Short Term Goal (STG) Pt will be able to demonstrate ambulation without deviations and without aggravation of symptoms. 02/11 improving mild deviations STG Duration achieved Senior Living Goal (LTG) Pt will be able to ambulate around [employer] LTG Duration achieved strength Short Term Goal (STG) pt will be independent and adhere to HEP STG Duration achieved progressing as needed Tiler Goal (LTG) Pt will increase B LE strength to at least a 4+/5 for improved ability for gait and functional ADL's 03/11-excellent progress LTG Duration excellent progress-pt to cont with HEP Assessment Summary Assessment Pt does well with exercises with min cueing and has met all goals except strengthw hich she will cont to work on indep. She is d/c at this time to cont to work on strength indep Physical Therapy Plan Discharge Physical Therapy Discharge Reasons Goals Met
== END 2019-04-18 13:32 ==
LOC: PHYS 14:30
PROVIDERS: PCP Family Medicine; Visit Provider Orthopaedic Surgery
DX: M25.559 Pain in unspecified hip (principal)
CPT/HCPCS: 97110; 97112; 97116; 97140; 97162; 97535

== ENCOUNTER 2020-04-14 10:18 | Emergency (ER) | payer MEDICARE, BC, SELFPAY ==
[2020-04-14 10:27] VITALS: BP 129/72; PULSE 73; RESP 16; TEMP 36.9; O2SAT 100; BMI 21.4
[2020-04-14 10:28] VITALS: BP 129/72; PULSE 72; O2SAT 100
[2020-04-14 10:30] VITALS: PULSE 72; O2SAT 95
--- NOTE | 2020-04-14 10:34 | DI.RAD.S_ITS ---
PROCEDURE: XR ACUTE ABDOMEN SERIES INDICATIONS: thinks she has a bowel obstruction TECHNIQUE: One view chest and two views of the abdomen were acquired. COMPARISON: [facility], CR, XR PELVIS WITH LATERAL HIP LEFT, 08/21/2017, 14:30. FINDINGS: Surgical changes and devices: Left hip arthroplasty.. Chest: Lungs are clear. Lungs are hyperexpanded. Heart size is normal. No pleural effusions. No pneumoperitoneum. Abdomen: Scattered stool is present. No suspicious calcifications. Visualized solid organ contours appear normal. Bones: No suspicious bony lesions. IMPRESSION: Scattered stool suggestive of constipation. No obstruction. Dictated by: Kelly Summers M.D. on 04/14/2020 at 10:22 Approved by: Kelly Summers M.D. on 04/14/2020 at 10:24
--- NOTE | 2020-04-14 10:43 | ED_ITS ---
HPI - Abdominal Pain <VENU Watson - Last Filed: 04/14/20 13:40> General Chief Complaint: Abdominal Pain Stated Complaint: Says she has a bowel obstruction Time Seen by Provider: 04/14/20 10:28 Source: patient Mode of arrival: Ambulatory Limitations: no limitations History of Present Illness HPI narrative: The patient is a 74-year-old female nonsmoker with history of hyperthyroidism who presents with a chief complaint of abdominal fullness. She presents to triage stating she has ?a bowel obstruction.Further interview alerts me to the fact that the patient complains of her intestines touching each other while doing yoga last week. She states she is concerned that her intes tines twisted on each other when she pushed them together while doing yoga stretches. She complains of lack of bowel movements, states she has not had a good bowel movement in a week. She states she moved ?a little bit a few days ago. She complains of periumbilical fullness, that is worse when she stands up. Denies any chest pain or shortness of breath. Denies any recent abdominal surgery or history is. Does have remote history of an appendectomy when she was in grade school. Denies any fevers muscle aches or chills. She states that she called her primary care provider's office this morning to get recommendations about laxatives Related Data Home Medications Medication Instructions Recorded Confirmed ENZYMES (DIGESTIVE ENZYMES) 1 tab PO QDAY #0 12/22/10 11/27/18 calcium carbonate 500 mg calcium 500 mg PO DAILY 11/27/18 11/27/18 (1,250 mg) tablet Previous Rx's Medication Instructions Recorded estradiol 0.01 % VAG 2XW #42.5 gram 02/19/19 Allergies Allergy/AdvReac Type Severity Reaction Status Date / Time petrolatum, yellow Allergy Severe breathing Verified 04/14/20 10:32 [PETROLATUM, YELLOW] problems minocycline [MINOCYCLINE] Allergy Mild Verified 04/14/20 10:32 Tetracyclines [TETRACYCLINES] Allergy Mild Verified 04/14/20 10:32 dairy products Allergy Mild dark Uncoded 01/09/19 14:51 circles-eyes Review of Systems <VENU Watson - Last Filed: 04/14/20 13:40> Review of Systems Narrative: GENERAL: Denies chills, fatigue, malaise, fever, sweats. HEENT: Denies sinus pain, ear pain, sore throat, difficulty swallowing, dizziness. RESPIRATORY: Denies dyspnea, cough, wheezing, hemoptysis, sputum. CARDIOVASCULAR: Denies chest pain, palpitations, orthopnea, edema, GASTROINTESTINAL: See HPI : Denies dysuria, frequency, incontinence, hematuria, urinary retention. MUSCULOSKELETAL: denies weakness, joint pain, or bony pain SKIN: Denies rash, skin lesions, or other NEUROLOGIC: Denies weakness, headache, numbness, change in speech, confusion, seizures, incoordination. PSYCHIATRIC: No concerning psychosocial issues. 12 point review of systems is negative except for those stated above Patient History <VENU Watson - Last Filed: 04/14/20 13:40> Medical History Chickenpox (~195) Hypoglycemia (~1965) Measles (~1953) Mumps (~1952) Rosacea (~2004) Surgical History Anesthesia Status post appendectomy Status post breast biopsy Family History Father Prostate cancer Grandmother Diabetes mellitus Mother Breast cancer Grandmother Liver cancer Social History marital status: Smoking Status: Never smoker alcohol intake: never substance use type: does not use Smoking Status: Never smoker alcohol intake frequency: holidays/special occasions only Substance Use Type: does not use Exam <VENU Watson - Last Filed: 04/14/20 13:40> Narrative Exam Narrative: GENERAL: This is a well-nourished, well-developed patient, in no acute distress HEAD: Atraumatic. Normocephalic. No temporal or scalp tenderness. EYES: Pupils equal round and reactive. Extraocular motions intact. No scleral icterus. No injection or drainage. ENT: Nose without bleeding, purulent drainage or septal hematoma. Wearing a Airway patent. NECK: Trachea midline. No JVD or lymphadenopathy. Supple, nontender, no meningeal signs. CARDIOVASCULAR: Regular rate and rhythm RESPIRATORY: Clear to auscultation. Breath sounds equal bilaterally. No wheezes, rales, or rhonchi. No cough. No increased respiratory effort. No accessory muscle use GASTROINTESTINAL: Abdomen soft, non-tender, nondistended. No hepato- splenomegaly, or palpable masses. No guarding. Active bowel sounds all 4 quadrants EXTREMITIES: No clubbing, cyanosis, or edema. No joint tenderness, effusion, or edema noted. BACK: Nontender without deformity or crepitance. No flank tenderness. NEURO: AOx3. SKIN: No rash or erythema. Initial Vital Signs Initial Vital Signs: Vital Signs Temperature 98.4 F 04/14/20 10:27 Pulse Rate 73 04/14/20 10:27 Respiratory Rate 16 04/14/20 10:27 Blood Pressure 129/72 04/14/20 10:27 Pulse Oximetry 100 04/14/20 10:27 <Loretta Christianson DO - Last Filed: 04/15/20 07:18> Initial Vital Signs Initial Vital Signs: Vital Signs Temperature 98.4 F 04/14/20 10:27 Pulse Rate 73 04/14/20 10:27 Respiratory Rate 16 04/14/20 10:27 Blood Pressure 129/72 04/14/20 10:27 Pulse Oximetry 100 04/14/20 10:27 Scores <VENU Watson - Last Filed: 04/14/20 13:40> GCS Kelley coma scale eye opening: Spontaneous Ander coma scale verbal response: Orientated Ander coma scale motor response: Obey commands Kelley coma scale total score: 15 Course <VENU Watson - Last Filed: 04/14/20 13:40> Orders Ordered: ED Orders 04/14/20 10:34 XR acute abdomen series Stat 04/14/20 10:45 Amylase Stat Complete Blood Count AUTO DIFF Stat Comprehensive Metabolic Panel Stat Lactate (Lactic Acid) Stat Lipase Stat Vital Signs Vital signs: Vital Signs - 8 hr 04/14/20 10:27 04/14/20 10:28 04/14/20 10:30 Temperature 98.4 F Pulse Rate 73 72 72 Respiratory Rate 16 Blood Pressure 129/72 129/72 Pulse Oximetry 100 100 95 04/14/20 11:02 04/14/20 11:30 04/14/20 12:00 Temperature Pulse Rate 97 H 70 Respiratory Rate 18 Blood Pressure 122/61 118/57 L Pulse Oximetry 94 99 <Loretta Christianson DO - Last Filed: 04/15/20 07:18> Orders Ordered: ED Orders 04/14/20 10:34 XR acute abdomen series Stat 04/14/20 10:45 Amylase Stat Complete Blood Count AUTO DIFF Stat Comprehensive Metabolic Panel Stat Lactate (Lactic Acid) Stat Lipase Stat Vital Signs Vital signs: Vital Signs - 8 hr 04/14/20 10:27 04/14/20 10:28 04/14/20 10:30 Temperature 98.4 F Pulse Rate 73 72 72 Respiratory Rate 16 Blood Pressure 129/72 129/72 Pulse Oximetry 100 100 95 04/14/20 11:02 04/14/20 11:30 04/14/20 12:00 Temperature Pulse Rate 97 H 70 Respiratory Rate 18 Blood Pressure 122/61 118/57 L Pulse Oximetry 94 99 MDM - Abdominal Pain <KAMALA Watson-BC - Last Filed: 04/14/20 13:40> Differential Diagnosis Differential diagnosis: Likely abdominal pain, constipation and small bowel ob struction Lab Data Result diagrams: 04/14/20 10:45 04/14/20 10:45 Labs: Lab Results 04/14/20 04/14/20 04/14/20 Range/Units 10:45 10:45 10:45 WBC 4.4 L (4.5-11.0) X10^3/uL RBC 4.30 (4.0-5.2) X10^6/uL Hgb 13.9 (12.0-16.0) g/dL Hct 40.4 (36-46) % MCV 94.1 (80-100) fL MCH 32.3 (26-34) PG MCHC 34.4 (30-36) % RDW 13.0 (11.6-14.8) % Plt Count 261 (150-400) X10^3/uL Neut % (Auto) 65.5 (50-75) % Lymph % (Auto) 22.4 L (25-40) % [place] % (Auto) 9.9 (3-14) % Eos % (Auto) 1.1 L (2-4) % Baso % (Auto) 1.1 (0-2) % Neut # (Auto) 2900 (8121-3729) /uL Lymph # (Auto) 1000 L (2949-1973) /uL [place] # (Auto) 400 (0-900) /uL Eos # (Auto) 0 (0-450) /uL Baso # (Auto) 0 (0-100) /uL Sodium 137 (137-145) mmol/L Potassium 4.0 (3.4-5.1) mmol/L Chloride 103 (98-107) mmol/L Carbon Dioxide 28 (22-32) mmol/L BUN 16 (7-17) mg/dL Creatinine 0.84 (0.52-1.04) mg/dL Estimated GFR > 60.0 (>60) mL/min BUN/Creatinine Ratio 19.0 (6-22) Glucose 104 (80-110) mg/dL Lactate 1.0 (0.7-2.1) mmol/L Calcium 9.8 (8.4-10.2) mg/dL Total Bilirubin 0.3 (0.2-1.3) mg/dL AST 28 (14-36) IU/L ALT 17 (<35) IU/L Alkaline Phosphatase 69 (38-126) U/L Total Protein 7.2 (6.3-8.2) g/dL Albumin 4.6 (3.5-5.0) g/dL Globulin 2.6 (1.7-4.1) g/dL Albumin/Globulin Ratio 1.8 (1.0-2.8) Amylase 75 (30-110) U/L Lipase 103 (23-300) U/L Point of care testing: Urine Dip Bedside Urine Glucose Negative Bedside Urine Bilirubin - Negative Bedside Urine Ketone - Negative Urine Specific [place] 1.015 Bedside Urine Occult Blood - Negative Bedside Urine pH 6 Bedside Urine Protein - Negative Bedside Urine Urobilinogen - Negative Bedside Urine Nitrite - Negative Bedside Urine Leukocytes - Negative Esterase Imaging Data Abdominal x-ray: Radiologist's Impression: [address] [place] [address] [id number] ReportSigned Patient: Ruth Dey TMR#: [id number]: 6Acct:[id number]/Sex: 74 / FDate of Service: 04/14/20Loc: EDAccession Number: [id number] Procedure: XR acute abdomen series Ordering Provider: Shira Galindo PROCEDURE: XR ACUTE ABDOMEN SERIES INDICATIONS: thinks she has a bowel obstruction TECHNIQUE: One view chest and two views of the abdomen were acquired. COMPARISON: [facility], CR, XR PELVIS WITH LATERAL HIP LEFT, 08/21/2017, 14:30. FINDINGS: Surgical changes and devices: Left hip arthroplasty.. Chest: Lungs are clear. Lungs are hyperexpanded. Heart size is normal. No pleural effusions. No pneumoperitoneum. Abdomen: Scattered stool is present. No suspicious calcifications. Visualized solid organ contours appear normal. Bones: No suspicious bony lesions. IMPRESSION: Scattered stool suggestive of constipation. No obstruction. Dictated by: Kelly Summers M.D. on 04/14/2020 at 10:22 Approved by: Kelly Summers M.D. on 04/14/2020 at 10:24 MDM Narrative Medical decision making narrative: The patient is a 74-year-old female who presents with a chief complaint of ?I have a small-bowel obstruction.She does not have an acute abdomen on exam, is active bowel sounds and is passing gas. Her x-rays have no acute findings with scattered stools suggestive of constipation which correlates with her history. Overall lab work is reassuring, no leukocytosis, no elevated lactate. She is able to tolerate p.o., has no signs of systemic illness. We discussed at length remedies for constipation and the patient feels much relieved from knowing that there is no current small- bowel obstruction. I discussed at length strict ER return precautions including abdominal pain fever, no keep down fluids etcetera. Encouraged follow-up with primary care provider in the next few days. Patient has no questions or concerns upon discharge states understanding return precautions as well as follow-up care. <Loretta Christianson, DO - Last Filed: 04/15/20 07:18> Lab Data Labs: Lab Results 04/14/20 04/14/20 04/14/20 Range/Units 10:45 10:45 10:45 WBC 4.4 L (4.5-11.0) X10^3/uL RBC 4.30 (4.0-5.2) X10^6/uL Hgb 13.9 (12.0-16.0) g/dL Hct 40.4 (36-46) % MCV 94.1 (80-100) fL MCH 32.3 (26-34) PG MCHC 34.4 (30-36) % RDW 13.0 (11.6-14.8) % Plt Count 261 (150-400) X10^3/uL Neut % (Auto) 65.5 (50-75) % Lymph % (Auto) 22.4 L (25-40) % [place] % (Auto) 9.9 (3-14) % Eos % (Auto) 1.1 L (2-4) % Baso % (Auto) 1.1 (0-2) % Neut # (Auto) 2900 (1471-9416) /uL Lymph # (Auto) 1000 L (8222-3605) /uL [place] # (Auto) 400 (0-900) /uL Eos # (Auto) 0 (0-450) /uL Baso # (Auto) 0 (0-100) /uL Sodium 137 (137-145) mmol/L Potassium 4.0 (3.4-5.1) mmol/L Chloride 103 (98-107) mmol/L Carbon Dioxide 28 (22-32) mmol/L BUN 16 (7-17) mg/dL Creatinine 0.84 (0.52-1.04) mg/dL Estimated GFR > 60.0 (>60) mL/min BUN/Creatinine Ratio 19.0 (6-22) Glucose 104 (80-110) mg/dL Lactate 1.0 (0.7-2.1) mmol/L Calcium 9.8 (8.4-10.2) mg/dL Total Bilirubin 0.3 (0.2-1.3) mg/dL AST 28 (14-36) IU/L ALT 17 (<35) IU/L Alkaline Phosphatase 69 (38-126) U/L Total Protein 7.2 (6.3-8.2) g/dL Albumin 4.6 (3.5-5.0) g/dL Globulin 2.6 (1.7-4.1) g/dL Albumin/Globulin Ratio 1.8 (1.0-2.8) Amylase 75 (30-110) U/L Lipase 103 (23-300) U/L Point of care testing: Urine Dip Bedside Urine Glucose Negative Bedside Urine Bilirubin - Negative Bedside Urine Ketone - Negative Urine Specific [place] 1.015 Bedside Urine Occult Blood - Negative Bedside Urine pH 6 Bedside Urine Protein - Negative Bedside Urine Urobilinogen - Negative Bedside Urine Nitrite - Negative Bedside Urine Leukocytes - Negative Esterase Discharge Plan Departure Patient Disposition: Home Clinical Impression: Constipation Qualifiers: Constipation type: unspecified constipation type Qualified Code(s): K59.00 - Constipation, unspecified Abdominal pain Qualifiers: Abdominal location: generalized Qualified Code(s): R10.84 - Generalized abdominal pain Instructions: DI for Abdominal Pain-Adult, DI for Constipation Activity Restrictions/Additional Instructions: Thank you for trusting us with your care today As discussed, your lab work was very reassuring as were the x-rays. Please follow-up with primary care provider in the next few days As discussed, please come back to the emergency department for any acute concerns such as abdominal pain with fever, inability keep down fluids etcetera As discussed please make sure that your staying hydrated, eating plenty of fiber, you can try [id number]-ywattbr senna or smooth move tea. You can try warm applesauce with warm prune juice with a tab of butter on top. Prescriptions: No Action calcium carbonate [Calcium 500] 500 mg calcium (1,250 mg) tablet 500 mg PO DAILY RF: 0 ENZYMES (DIGESTIVE ENZYMES) 1 tab PO QDAY Qty: 0 RF: 0 estradiol [Estrace] 0.01 % (0.1 mg/gram) cream 0.01 % VAG 2XW Qty: 42.5 RF: 2 Referrals: Mahesh Aguilar MD [Primary Care Provider] - <Loretta Christianson DO - Last Filed: 04/15/20 07:18> Cosign ED Attending Benjyature Attestation: I was immediately available in the department for consultation. Documentation has been reviewed. I agree with assessment and plan.
[2020-04-14 10:51] LABS: Add Manual Diff / Slide Review NO; Basophils Absolute Auto 0 /uL (0-100); Basophils Percent Auto 1.1 % (0-2); Eosinophils Absolute Auto 0 /uL (0-450); Eosinophils Percent Auto 1.1 % (2-4); Hematocrit 40.4 % (36-46); Hemoglobin 13.9 g/dL (12.0-16.0); Lymphocytes Absolute Auto 1000 /uL (1100-4500); Lymphocytes Percent Auto 22.4 % (25-40); Mean Corpuscular HGB Conc 34.4 % (30-36); Mean Corpuscular Hemoglobin 32.3 PG (26-34); Mean Corpuscular Volume 94.1 fL (80-100); Monocytes Absolute Auto 400 /uL (0-900); Monocytes Percent Auto 9.9 % (3-14); Neutrophils Absolute Auto 2900 /uL (1500-7000); Neutrophils Percent Auto 65.5 % (50-75); Platelet Count 261 X10^3/uL (150-400); White Blood Cell Count 4.4 X10^3/uL (4.5-11.0)
[2020-04-14 11:02] VITALS: BP 122/61; PULSE 97; O2SAT 94
[2020-04-14 11:04] LABS: Alanine Aminotransferase 17 IU/L (<35); Albumin 4.6 g/dL (3.5-5.0); Albumin Globulin Ratio 1.8 (1.0-2.8); Alkaline Phosphatase 69 U/L (38-126); Amylase 75 U/L (30-110); Aspartate Aminotransferase 28 IU/L (14-36); Bilirubin Total 0.3 mg/dL (0.2-1.3); Blood Urea Nitrogen 16 mg/dL (7-17); Calcium 9.8 mg/dL (8.4-10.2); Carbon Dioxide 28 mmol/L (22-32); Chloride 103 mmol/L (98-107); Estimated Glomerular Filt Rate > 60.0 mL/min (>60); Globulin 2.6 g/dL (1.7-4.1); Glucose 104 mg/dL (80-110); HEMOLYSIS < 15 (0-50); Lipase 103 U/L (23-300); Sodium 137 mmol/L (137-145); Total Protein 7.2 g/dL (6.3-8.2)
[2020-04-14 11:30] VITALS: BP 118/57; PULSE 70; O2SAT 99
[2020-04-14 12:00] VITALS: RESP 18
== END 2020-04-14 12:14 | disposition home or self-care (01) ==
PROVIDERS: Emergency Provider Nurse Practitioner Family; PCP Family Medicine
DX: K59.00 Constipation, unspecified (principal); R10.84 Generalized abdominal pain; E05.90 Thyrotoxicosis, unspecified without thyrotoxic crisis or storm
CPT/HCPCS: 36415; 74022; 80053; 81003; 82150; 83605; 83690; 85025; 99284

== ENCOUNTER → 2020-11-21 16:04 | Outpatient (CLI) | payer MEDICARE, BC, SELFPAY ==
--- NOTE | 2020-11-21 16:06 | DI.MG.S_ITS ---
BILATERAL DIGITAL SCREENING MAMMOGRAM 3D/2D WITH CAD: 11/21/2020 CLINICAL: Routine screening. Family history of breast cancer. Comparison is made to exams dated: 06/25/2018 mammogram, 06/07/2017 mammogram, and 12/12/2014 mammogram - [facility]. The tissue of both breasts is extremely dense, which lowers the sensitivity of mammography. Current study was also evaluated with a Computer Aided Detection (CAD) system. There are benign calcifications in both breasts. There also are benign post operative findings in the left breast. No significant masses, calcifications, or other findings are seen in either breast. There has been no significant interval change. IMPRESSION: BENIGN There is no mammographic evidence of malignancy. A 1 year screening mammogram is recommended. This exam was interpreted at Station ID: [id number]. NOTE: For mammograms, a report in lay terms will be sent to the patient. Approximately 15% of breast malignancies will not be visualized mammographically. In the management of a palpable breast mass, a negative mammogram must not discourage biopsy of a clinically suspicious lesion. Electronically Signed By: Mahesh Wang M.D., jr/falguni:11/23/2020 08:40:14 letter sent: Normal Exam ACR BI-RADS Category 2: Benign Finding(s) [id number]
== END ==
PROVIDERS: PCP Family Medicine; Referring Provider Family Medicine; Visit Provider Family Medicine
DX: Z12.31 Encounter for screening mammogram for malignant neoplasm of breast (principal); Z80.3 Family history of malignant neoplasm of breast
CPT/HCPCS: 77063; 77067

== ENCOUNTER → 2020-11-23 14:53 | Outpatient (CLI) | payer MEDICARE, BC, SELFPAY ==
[2020-11-23 19:19] LABS: COVID19 -Nasal RAPID Negative (Negative)
== END ==
PROVIDERS: PCP Family Medicine; Visit Provider Nurse Practitioner Family
DX: Z20.822 Contact with and (suspected) exposure to COVID-19 (principal); J02.9 Acute pharyngitis, unspecified; R51.9 Headache, unspecified
CPT/HCPCS: 87635

== ENCOUNTER → 2021-05-31 12:00 | Outpatient (CLI) | payer MEDICARE, BC, SELFPAY ==
[2021-05-31 12:25] LABS: Add Manual Diff / Slide Review NO; Basophils Absolute Auto 100 /uL (0-100); Basophils Percent Auto 1.2 % (0-2); Eosinophils Absolute Auto 0 /uL (0-450); Eosinophils Percent Auto 0.7 % (2-4); Hemoglobin 14.1 g/dL (12.0-16.0); Lymphocytes Absolute Auto 1000 /uL (1100-4500); Lymphocytes Percent Auto 20.7 % (25-40); Mean Corpuscular HGB Conc 33.6 % (30-36); Mean Corpuscular Hemoglobin 32.4 PG (26-34); Mean Corpuscular Volume 96.4 fL (80-100); Monocytes Absolute Auto 300 /uL (0-900); Monocytes Percent Auto 6.3 % (3-14); Neutrophils Absolute Auto 3500 /uL (1500-7000); Neutrophils Percent Auto 71.1 % (50-75); Platelet Count 249 X10^3/uL (150-400); Red Blood Cell Count 4.36 X10^6/uL (4.0-5.2); Red Cell Distribution Width 13.2 % (11.6-14.8); White Blood Cell Count 4.9 X10^3/uL (4.5-11.0)
[2021-05-31 12:38] LABS: Alanine Aminotransferase 24 IU/L (<35); Albumin 4.9 g/dL (3.5-5.0); Albumin Globulin Ratio 1.9 (1.0-2.8); Alkaline Phosphatase 61 U/L (38-126); Aspartate Aminotransferase 35 IU/L (14-36); BUN Creatinine Ratio 25.9 (6-22); Bilirubin Total 0.3 mg/dL (0.2-1.3); Blood Urea Nitrogen 21 mg/dL (7-17); Calcium 9.1 mg/dL (8.4-10.2); Carbon Dioxide 26 mmol/L (22-32); Chloride 105 mmol/L (98-107); Estimated Glomerular Filt Rate > 60.0 mL/min (>60); Globulin 2.6 g/dL (1.7-4.1); Glucose 100 mg/dL (80-110); HEMOLYSIS < 15 (0-50); Potassium 4.2 mmol/L (3.4-5.1); Sodium 138 mmol/L (137-145); Total Protein 7.5 g/dL (6.3-8.2)
[2021-05-31 13:12] LABS: TSH w/ Reflex to FT4 2.53 uIU/mL (0.47-4.68)
== END ==
PROVIDERS: PCP Family Medicine; Referring Provider Family Medicine; Visit Provider Family Medicine
DX: E05.90 Thyrotoxicosis, unspecified without thyrotoxic crisis or storm (principal)
CPT/HCPCS: 36415; 80053; 84443; 85025

== ENCOUNTER → 2021-11-29 11:50 | Outpatient (CLI) | payer MEDICARE, BC, SELFPAY ==
--- NOTE | 2021-11-29 | DI.MG.S_ITS ---
BILATERAL DIGITAL SCREENING MAMMOGRAM 3D/2D WITH CAD: 11/29/2021 CLINICAL: Routine screening. Family history of breast cancer. Comparison is made to exams dated: 11/21/2020 mammogram, 06/25/2018 mammogram, and 06/07/2017 mammogram - [facility]. Both breasts are heterogeneously dense, which may obscure small masses (category c / 51-75% glandular tissue). Current study was also evaluated with a Computer Aided Detection (CAD) system. There is a developing oval asymmetry in the left breast at 10 o'clock anterior depth. This is increased in size. No other significant masses, calcifications, or other findings are seen in either breast. IMPRESSION: INCOMPLETE: NEEDS ADDITIONAL IMAGING EVALUATION The developing oval asymmetry in the left breast most likely is a cyst and is indeterminate. Additional views with possible ultrasound are recommended. Based on the Tyrer Cuzick model (a risk assessment model) the patient's lifetime risk is 10.5% and her 10 year risk is 0.0%. According to the ACR, ACS, and NCCN guidelines, an annual breast MRI exam along with mammogram is recommended if the patient's lifetime risk is 20% or greater. This exam was interpreted at Station ID: [id number]. NOTE: For mammograms, a report in lay terms will be sent to the patient. Approximately 15% of breast malignancies will not be visualized mammographically. In the management of a palpable breast mass, a negative mammogram must not discourage biopsy of a clinically suspicious lesion. Electronically Signed By: Mariajose urrutia/falguni:11/29/2021 14:49:18 letter sent: Additional Imaging Needed ACR BI-RADS Category 0: Incomplete 3340F
== END ==
PROVIDERS: PCP Family Medicine; Referring Provider Family Medicine; Visit Provider Family Medicine
DX: Z12.31 Encounter for screening mammogram for malignant neoplasm of breast (principal); Z80.3 Family history of malignant neoplasm of breast
CPT/HCPCS: 77063; 77067

== ENCOUNTER → 2021-12-22 08:48 | Outpatient (CLI) | payer MEDICARE, BC, SELFPAY ==
--- NOTE | 2021-12-22 | DI.MG.S_ITS ---
UNILATERAL LEFT DIGITAL DIAGNOSTIC MAMMOGRAM 3D/2D: 12/22/2021 CLINICAL: Additional evaluation requested from prior study. Comparison is made to exams dated: 11/29/2021 mammogram, 11/21/2020 mammogram, and 06/25/2018 mammogram - [facility]. The left breast is heterogeneously dense, which may obscure small masses (category c / 51-75% glandular tissue). The possible developing oval asymmetry in the left breast at 8:00 or 10:00 anterior depth is less prominent and not convincingly confirmed with additional views. No other significant masses or calcifications are seen in the breast. IMPRESSION: INCOMPLETE: NEEDS ADDITIONAL IMAGING EVALUATION The possible developing oval asymmetry in the left breast is less prominent, resembles fibroglandular tissue but remains indeterminate. An ultrasound is recommended. This was performed immediately following this exam. Based on the Tyrer Cuzick model (a risk assessment model) the patient's lifetime risk is 10.5% and her 10 year risk is 0.0%. According to the ACR, ACS, and NCCN guidelines, an annual breast MRI exam along with mammogram is recommended if the patient's lifetime risk is 20% or greater. This exam was interpreted at Station ID: [id number]. NOTE: For mammograms, a report in lay terms will be sent to the patient. Approximately 15% of breast malignancies will not be visualized mammographically. In the management of a palpable breast mass, a negative mammogram must not discourage biopsy of a clinically suspicious lesion. Electronically Signed By: Mariajose urrutia/:12/22/2021 09:32:26 ACR BI-RADS Category 0: Incomplete 3340F
--- NOTE | 2021-12-22 08:49 | DI.US.S_ITS ---
LIMITED ULTRASOUND OF LEFT BREAST AND AXILLA: 12/22/2021 CLINICAL: Patient returns today to evaluate two focal asymmetries in the left breast. Comparison is made to exams dated: 12/22/2021 mammogram, 11/29/2021 mammogram, 11/21/2020 mammogram, 06/25/2018 mammogram, 06/07/2017 mammogram, and 12/12/2014 mammogram - [facility]. Color flow ultrasound of the left breast 7 o'clock, and axilla regions was performed. Watkins scale images of the real-time examination were reviewed. There is a 0.8 cm x 1.6 cm x 0.8 cm oval area of fibroglandular tissue with an indistinct margin in the left breast at 7 o'clock anterior depth 3 cm from the nipple. This oval area of fibroglandular tissue is heterogeneously echogenic. This correlates with mammography findings. Color flow imaging demonstrates that there is possible adjacent vascularity. No significant abnormalities were seen sonographically in the left axilla. IMPRESSION: PROBABLY BENIGN The 0.8 cm x 1.6 cm area of heterogeneous dense fibroglandular tissue in the left breast is probably benign. A follow-up left mammogram and an ultrasound in 6 months is recommended to demonstrate stability. Findings and recommendations were conveyed to the patient at time of exam. This exam was interpreted at Station ID: [id number]. Electronically Signed By: Mariajose urrutia/:12/22/2021 10:14:24 letter sent: Followup Recommended Ultrasound BI-RADS: 3 Probably benign
== END ==
PROVIDERS: PCP Family Medicine; Referring Provider Family Medicine; Visit Provider Family Medicine
DX: R92.8 Other abnormal and inconclusive findings on diagnostic imaging of breast (principal); N63.24 Unspecified lump in the left breast, lower inner quadrant
CPT/HCPCS: 76642; 77065; G0279

== ENCOUNTER → 2022-07-29 12:07 | Outpatient (CLI) | payer MEDICARE, BC, SELFPAY ==
--- NOTE | 2022-07-29 12:09 | DI.MG.S_ITS ---
UNILATERAL LEFT DIGITAL DIAGNOSTIC MAMMOGRAM 3D/2D: 07/29/2022 CLINICAL: Short term follow up for the left breast. Comparison is made to exams dated: 12/22/2021 ultrasound, 12/22/2021 mammogram, 11/29/2021 mammogram, and 11/21/2020 mammogram - [facility]. The left breast is heterogeneously dense, which may obscure small masses (category c / 51-75% glandular tissue). There is an asymmetry in the left breast at 10 o'clock anterior depth. This is less prominent. No other significant masses or calcifications are seen in the breast. IMPRESSION: INCOMPLETE: NEEDS ADDITIONAL IMAGING EVALUATION The asymmetry in the left breast most likely is fibroglandular tissue and is indeterminate. A targeted ultrasound is recommended and will immediately follow. Based on the Tyrer Cuzick model (a risk assessment model) the patient's lifetime risk is 10.5% and her 10 year risk is 0.0%. According to the ACR, ACS, and NCCN guidelines, an annual breast MRI exam along with mammogram is recommended if the patient's lifetime risk is 20% or greater. This exam was interpreted at Station ID: [id number]. NOTE: For mammograms, a report in lay terms will be sent to the patient. Approximately 15% of breast malignancies will not be visualized mammographically. In the management of a palpable breast mass, a negative mammogram must not discourage biopsy of a clinically suspicious lesion. Electronically Signed By: Ciro Ibarra M.D. slc/:07/29/2022 12:34:24 ACR BI-RADS Category 0: Incomplete 3340F
--- NOTE | 2022-07-29 12:09 | DI.US.S_ITS ---
LIMITED ULTRASOUND OF LEFT BREAST: 07/29/2022 CLINICAL: 6 month follow up for left breast. Comparison is made to exams dated: 07/29/2022 mammogram, 12/22/2021 ultrasound, 12/22/2021 mammogram, 11/29/2021 mammogram, and 11/21/2020 mammogram - [facility]. Color flow and real-time ultrasound of the left breast 7 o'clock region were performed. Watkins scale images of the real-time examination were reviewed. No significant abnormalities were seen sonographically in the left breast. IMPRESSION: PROBABLY BENIGN No mass or cyst seen on ultrasound. Exam findings were conveyed to the patient. A follow-up mammogram in 6 months is recommended to demonstrate stability of the mammographic finding. Patient will be due for right mammogram at that time. This exam was interpreted at Station ID: [id number]. Electronically Signed By: Ciro Ibarra M.D. slc/:07/29/2022 13:50:26 letter sent: Followup Recommended Ultrasound BI-RADS: 3 Probably benign
== END ==
PROVIDERS: PCP Family Medicine; Referring Provider Family Medicine; Visit Provider Family Medicine
DX: R92.8 Other abnormal and inconclusive findings on diagnostic imaging of breast (principal); N64.89 Other specified disorders of breast
CPT/HCPCS: 76642; 77065; G0279

== ENCOUNTER → 2022-09-20 11:20 | Outpatient (CLI) | payer MEDICARE, BC, SELFPAY ==
[2022-09-20 12:39] LABS: Add Manual Diff / Slide Review NO; Basophils Absolute Auto 0 /uL (0-100); Basophils Percent Auto 0.8 % (0-2); Eosinophils Absolute Auto 0 /uL (0-450); Eosinophils Percent Auto 0.7 % (2-4); Hematocrit 40.3 % (36-46); Lymphocytes Absolute Auto 900 /uL (1100-4500); Lymphocytes Percent Auto 15.8 % (25-40); Mean Corpuscular HGB Conc 34.6 % (30-36); Mean Corpuscular Hemoglobin 33.1 PG (26-34); Mean Corpuscular Volume 95.6 fL (80-100); Monocytes Absolute Auto 300 /uL (0-900); Monocytes Percent Auto 5.6 % (3-14); Neutrophils Absolute Auto 4300 /uL (1500-7000); Neutrophils Percent Auto 77.1 % (50-75); Platelet Count 237 X10^3/uL (150-400); Red Blood Cell Count 4.21 X10^6/uL (4.0-5.2); Red Cell Distribution Width 12.6 % (11.6-14.8); White Blood Cell Count 5.6 X10^3/uL (4.5-11.0)
[2022-09-20 17:51] LABS: Alanine Aminotransferase 25 IU/L (<35); Albumin 4.7 g/dL (3.5-5.0); Albumin Globulin Ratio 1.7 (1.0-2.8); Alkaline Phosphatase 66 U/L (38-126); Aspartate Aminotransferase 33 IU/L (14-36); BUN Creatinine Ratio 22.6 (6-22); Bilirubin Total 0.4 mg/dL (0.2-1.3); Blood Urea Nitrogen 19 mg/dL (7-17); Calcium 9.7 mg/dL (8.4-10.2); Carbon Dioxide 30 mmol/L (22-32); Chloride 101 mmol/L (98-107); Estimated Glomerular Filt Rate > 60 mL/min (>60); Globulin 2.8 g/dL (1.7-4.1); Glucose 99 mg/dL (80-110); HEMOLYSIS < 15 (0-50); Potassium 4.6 mmol/L (3.4-5.1); Sodium 137 mmol/L (137-145); Total Protein 7.5 g/dL (6.3-8.2)
[2022-09-20 18:36] LABS: TSH w/ Reflex to FT4 1.97 uIU/mL (0.47-4.68)
[2022-09-20 18:53] LABS: Vitamin B12 791 pg/mL (239-931)
== END ==
PROVIDERS: PCP Family Medicine; Visit Provider Physician Assistant
DX: E05.90 Thyrotoxicosis, unspecified without thyrotoxic crisis or storm (principal); R53.83 Other fatigue
CPT/HCPCS: 80053; 82607; 84443; 85025

== ENCOUNTER → 2023-01-09 10:24 | Outpatient (CLI) | payer MEDICARE, BC, SELFPAY ==
--- NOTE | 2023-01-09 | DI.MG.S_ITS ---
BILATERAL DIGITAL DIAGNOSTIC MAMMOGRAM 3D/2D: 01/09/2023 CLINICAL: Short term fu, due bilateral. Comparison is made to exams dated: 07/29/2022 mammogram, 12/22/2021 mammogram, 11/29/2021 mammogram, 11/21/2020 mammogram, and 06/25/2018 mammogram - [facility]. Both breasts are heterogeneously dense, which may obscure small masses (category c / 51-75% glandular tissue). There is a stable asymmetry in the left breast at anterior depth. No sonographic correlate previously. No other significant masses, calcifications, or other findings are seen in either breast. IMPRESSION: PROBABLY BENIGN The stable asymmetry in the left breast resembles fibroglandular tissue and is probably benign. A follow-up mammogram in 6 months is recommended to demonstrate stability. Based on the Tyrer Cuzick model (a risk assessment model) the patient's lifetime risk is 9.6% and her 10 year risk is 0.0%. According to the ACR, ACS, and NCCN guidelines, an annual breast MRI exam along with mammogram is recommended if the patient's lifetime risk is 20% or greater. This exam was interpreted at Station ID: [id number]. NOTE: For mammograms, a report in lay terms will be sent to the patient. Approximately 15% of breast malignancies will not be visualized mammographically. In the management of a palpable breast mass, a negative mammogram must not discourage biopsy of a clinically suspicious lesion. Electronically Signed By: Zach Verduzco M.D. lc/:01/09/2023 10:53:46 letter sent: Followup Recommended ACR BI-RADS Category 3: Probably benign 3343F
== END ==
PROVIDERS: PCP Family Medicine; Referring Provider Physician Assistant; Visit Provider Physician Assistant
DX: R92.8 Other abnormal and inconclusive findings on diagnostic imaging of breast (principal); N64.4 Mastodynia; N64.89 Other specified disorders of breast
CPT/HCPCS: 77066; G0279

== ENCOUNTER → 2023-09-01 06:49 | Outpatient (CLI) | payer MEDICARE, BC, SELFPAY ==
[2023-09-01 08:17] LABS: Add Manual Diff / Slide Review NO; Basophils Absolute Auto 0 /uL (0-100); Basophils Percent Auto 1.4 % (0-2); Eosinophils Absolute Auto 100 /uL (0-450); Eosinophils Percent Auto 3.8 % (2-4); Hematocrit 37.6 % (36-46); Lymphocytes Absolute Auto 1200 /uL (1100-4500); Lymphocytes Percent Auto 32.8 % (25-40); Mean Corpuscular HGB Conc 34.5 % (30-36); Mean Corpuscular Hemoglobin 32.5 PG (26-34); Monocytes Absolute Auto 300 /uL (0-900); Monocytes Percent Auto 9.4 % (3-14); Neutrophils Absolute Auto 1900 /uL (1500-7000); Neutrophils Percent Auto 52.6 % (50-75); Platelet Count 251 X10^3/uL (150-400); Red Cell Distribution Width 13.3 % (11.6-14.8); White Blood Cell Count 3.6 X10^3/uL (4.5-11.0)
[2023-09-01 08:43] LABS: Alanine Aminotransferase 20 IU/L (<35); Albumin 4.3 g/dL (3.5-5.0); Alkaline Phosphatase 68 U/L (38-126); Aspartate Aminotransferase 28 IU/L (14-36); BUN Creatinine Ratio 20.5 (6-22); Bilirubin Total 0.4 mg/dL (0.2-1.3); Blood Urea Nitrogen 15 mg/dL (7-17); Calcium 9.2 mg/dL (8.4-10.2); Carbon Dioxide 25 mmol/L (22-32); Chloride 109 mmol/L (98-107); Cholesterol 203 mg/dL (140-199); Estimated Glomerular Filt Rate > 60 mL/min (>60); Globulin 2.2 g/dL (1.7-4.1); Glucose 85 mg/dL (80-110); HDL Cholesterol 76 mg/dL (40-60); HEMOLYSIS < 15 (0-50); LDL Cholesterol Calculated 116 mg/dL (<100); Potassium 4.1 mmol/L (3.4-5.1); Sodium 140 mmol/L (137-145); Total Protein 6.5 g/dL (6.3-8.2); Triglycerides 54 mg/dL (35-150)
[2023-09-01 09:19] LABS: TSH w/ Reflex to FT4 2.75 uIU/mL (0.47-4.68)
== END ==
PROVIDERS: PCP Family Medicine; Referring Provider Physician Assistant; Visit Provider Physician Assistant
DX: Z13.220 Encounter for screening for lipoid disorders (principal); R14.0 Abdominal distension (gaseous); E05.90 Thyrotoxicosis, unspecified without thyrotoxic crisis or storm; R68.81 Early satiety; Z13.6 Encounter for screening for cardiovascular disorders
CPT/HCPCS: 36415; 80053; 80061; 84443; 85025

== ENCOUNTER → 2023-09-11 12:08 | Outpatient (CLI) | payer MEDICARE, BC, SELFPAY ==
--- NOTE | 2023-09-11 12:09 | DI.US.S_ITS ---
PROCEDURE: US ABDOMEN COMPLETE INDICATIONS: Bloating TECHNIQUE: Real-time scanning was performed of the abdominal and retroperitoneal organs, with image documentation. COMPARISON: None. FINDINGS: Liver: Liver is normal in size and homogeneous in echotexture. Gallbladder: No gallstones identified. Normal gallbladder wall. No pericholecystic fluid. Negative sonographic Posadas sign. Biliary ducts: Intrahepatic bile ducts are non-dilated. Extrahepatic bile duct caliber measures 2.7 mm. Normal is 6-7 mm or less in diameter, or 10 mm or less post-cholecystectomy. Pancreas: Visualized portions of the pancreas are sonographically normal. Spleen: Spleen is normal in size and homogeneous in echotexture. Kidneys: Kidneys are normal in size and echotexture. Right kidney measures 10.9 cm long; left kidney measures 11.4 cm long. No hydronephrosis or nephrolithiasis. No solid masses. Aorta: Visualized aorta is normal in caliber at less than 3 cm. Iliacs: Proximal common iliac arteries are normal in caliber at less than 2.5 cm. IVC: Intrahepatic inferior vena cava is patent. Miscellaneous: No free abdominal fluid. IMPRESSION: Normal abdominal ultrasound. If clinical symptoms persist, recommend cross-sectional imaging for further evaluation. Dictated by: Kenn Louis M.D. on 09/11/2023 at 16:41 Approved by: Kenn Louis M.D. on 09/11/2023 at 16:42
--- NOTE | 2023-09-11 12:09 | DI.US.S_ITS ---
PROCEDURE: US PELVIC COMPLETE INDICATIONS: Bloating, gas pain, LLQ discomfort TECHNIQUE: Real-time scanning was performed of the pelvic organs, with image documentation. Additional endovaginal scanning was necessary due to incomplete visualization of the adnexal and endometrial structures by transabdominal scanning. COMPARISON: None. FINDINGS: Uterus: Uterus is anteverted and normal in size at 5.2 x 2.1 x 3.3 cm. The myometrium is homogeneous. The endometrium measures 5.0 mm combined thickness. In the cervical canal, there is a 1.6 x 1.2 cm hypoechoic avascular structure. Smaller avascular hypoechoic structure noted in the in no medial with the canal measuring 0.4 x 0.8 x 0.7 cm. Ovaries: Neither ovary visualized Other: No pathologic free abdominal or pelvic fluid. IMPRESSION: Endocervical and endometrial hypoechoic avascular lesions. Consider follow-up MRI pelvis with contrast for further assessment Approved by: Rahul Hughes M.D. on 09/11/2023 at 17:17
== END ==
PROVIDERS: PCP Family Medicine; Referring Provider Physician Assistant; Visit Provider Physician Assistant
DX: N85.9 Noninflammatory disorder of uterus, unspecified (principal); N88.9 Noninflammatory disorder of cervix uteri, unspecified; R14.0 Abdominal distension (gaseous); R68.81 Early satiety
CPT/HCPCS: 76700; 76830; 76856

== ENCOUNTER → 2023-10-30 12:07 | Outpatient (CLI) | payer MEDICARE, BC, SELFPAY ==
--- NOTE | 2023-10-30 12:08 | DI.MG.S_ITS ---
BILATERAL DIGITAL DIAGNOSTIC MAMMOGRAM 3D/2D SHORT-TERM FOLLOW-UP: 10/30/2023 CLINICAL: Short term follow up of the left breast, due for bilateral imaging. Comparison is made to exams dated: 01/09/2023 mammogram, 07/29/2022 mammogram, 12/22/2021 mammogram, and 11/29/2021 mammogram - [facility]. Both breasts are heterogeneously dense, which may obscure small masses (category c / 51-75% glandular tissue). There is a stable asymmetry in the left breast at 10 o'clock anterior depth. This was not seen on the prior ultrasound. No other significant masses, calcifications, or other findings are seen in either breast. IMPRESSION: BENIGN The stable asymmetry in the left breast resembles fibroglandular tissue. This finding has demonstrated two years of stability and is consistent with a benign process. There is no mammographic evidence of malignancy. A 1 year screening mammogram is recommended. Findings and recommendations were conveyed to the patient during today's evaluation. Based on the Tyrer Cuzick model (a risk assessment model) the patient's lifetime risk is 12.9% and her 10 year risk is 0.0%. According to the ACR, ACS, and NCCN guidelines, an annual breast MRI exam along with mammogram is recommended if the patient's lifetime risk is 20% or greater. This exam was interpreted at Station ID: [id number]. NOTE: For mammograms, a report in lay terms will be sent to the patient. Approximately 15% of breast malignancies will not be visualized mammographically. In the management of a palpable breast mass, a negative mammogram must not discourage biopsy of a clinically suspicious lesion. Electronically Signed By: Joe Asencio M.D. aty/:10/30/2023 13:09:11 letter sent: Normal Exam ACR BI-RADS Category 2: Benign Finding(s) 3342F
== END ==
LOC: MAMMO 12:07
PROVIDERS: PCP Family Medicine; Referring Provider Physician Assistant; Visit Provider Physician Assistant
DX: R92.8 Other abnormal and inconclusive findings on diagnostic imaging of breast (principal); R92.333 Mammographic heterogeneous density, bilateral breasts; N64.89 Other specified disorders of breast
CPT/HCPCS: 77066; G0279

== ENCOUNTER → 2024-06-10 14:54 | Outpatient (CLI) | payer MEDICARE, OTHER, SELFPAY ==
--- NOTE | 2024-06-10 14:56 | DI.RAD.S_ITS ---
PROCEDURE: XR LUMBAR SPINE 2-3V INDICATIONS: hip and back pain TECHNIQUE: 3 views of the lumbar spine were acquired. COMPARISON: None. FINDINGS: Lumbar spine curvature and alignment: 5 mm of L3 and L5 anterior subluxation due to degenerative facet disease appreciated. Mild levo scoliotic curve lower thoracic upper lumbar spine Bones: There are no osseous abnormalities. Disc spaces: Moderate T10-11 through L1-2, mild L2-3 L3-4 moderate L4-5 degenerative disc disease appreciated. There is moderate L3-4 through L5-S1 degenerative facet disease Soft tissues: No soft tissue swelling, calcification or mass. IMPRESSION: Multilevel lumbar degeneration Grade 1 L3-4 and L5-S1 spondylolisthesis due to degenerate facet disease. Severe right hip degeneration. Dictated by: Richar Weldon M.D. on 06/11/2024 at 6:29 Approved by: Richar Weldon M.D. on 06/11/2024 at 6:31
--- NOTE | 2024-06-10 14:56 | DI.RAD.S_ITS ---
PROCEDURE: XR HIP W PEL IF DONE LT 2V INDICATIONS: hip and back pain TECHNIQUE: AP pelvis with lateral view(s) of the right hip(s). COMPARISON: None. FINDINGS: Bones: There are no osseous abnormalities. SI and hip joints: Left total hip prosthesis is anatomically aligned without loosening or infection. Severe right hip degeneration noted. Both SI joints show mild degeneration. Soft tissues: Urinary bladder is moderately distended. IMPRESSION: Severe right hip degeneration. Left total hip prostheses unremarkable Dictated by: Richar Weldon M.D. on 06/11/2024 at 6:31 Approved by: Richar Weldon M.D. on 06/11/2024 at 6:33
== END ==
PROVIDERS: PCP Family Medicine; Referring Provider Family Medicine; Visit Provider Family Medicine
DX: M51.360 Other intervertebral disc degeneration, lumbar region with discogenic back pain only (principal); E05.90 Thyrotoxicosis, unspecified without thyrotoxic crisis or storm; M25.552 Pain in left hip; M43.16 Spondylolisthesis, lumbar region; M43.17 Spondylolisthesis, lumbosacral region; M47.816 Spondylosis without myelopathy or radiculopathy, lumbar region; M47.817 Spondylosis without myelopathy or radiculopathy, lumbosacral region; M16.11 Unilateral primary osteoarthritis, right hip; Z96.642 Presence of left artificial hip joint
CPT/HCPCS: 72100; 73502

== ENCOUNTER → 2024-09-03 06:46 | Outpatient (CLI) | payer MEDICARE, OTHER, SELFPAY ==
[2024-09-03 07:34] LABS: Add Manual Diff / Slide Review NO; Hematocrit 41.2 % (36-46); Hemoglobin 14.1 g/dL (12.0-16.0); Lymphocytes Absolute Auto 1100 /uL (1100-4500); Mean Corpuscular HGB Conc 34.3 % (30-36); Mean Corpuscular Hemoglobin 33.5 PG (26-34); Mean Corpuscular Volume 97.8 fL (80-100); Platelet Count 215 X10^3/uL (150-400)
[2024-09-03 07:46] LABS: Alanine Aminotransferase 31 IU/L (<35); Albumin 4.3 g/dL (3.5-5.0); Albumin Globulin Ratio 2.0 (1.0-2.8); Alkaline Phosphatase 72 U/L (38-126); Blood Urea Nitrogen 18 mg/dL (7-17); Calcium 9.4 mg/dL (8.4-10.2); Carbon Dioxide 25 mmol/L (22-32); Chloride 106 mmol/L (98-107); Cholesterol 192 mg/dL (140-199); Estimated Glomerular Filt Rate > 60 mL/min (>60); Globulin 2.1 g/dL (1.7-4.1); Glucose 95 mg/dL (70-99); HDL Cholesterol 80 mg/dL (40-60); HEMOLYSIS < 15 (0-50); Potassium 4.5 mmol/L (3.4-5.1); Sodium 137 mmol/L (137-145); Total Protein 6.4 g/dL (6.3-8.2); Triglycerides 44 mg/dL (35-150)
[2024-09-03 08:18] LABS: TSH w/ Reflex to FT4 3.29 uIU/mL (0.47-4.68)
== END ==
PROVIDERS: PCP Family Medicine; Referring Provider Family Medicine; Visit Provider Family Medicine
DX: M25.552 Pain in left hip (principal); M54.50 Low back pain, unspecified; E05.90 Thyrotoxicosis, unspecified without thyrotoxic crisis or storm
CPT/HCPCS: 36415; 80053; 80061; 84443; 85025

== ENCOUNTER → 2024-11-12 14:55 | Outpatient (CLI) | payer MEDICARE, OTHER, SELFPAY ==
--- NOTE | 2024-11-12 14:56 | DI.MG.S_ITS ---
MM screening mammo BI: 11/12/2024. BI-RADS: 2 CLINICAL: 78-year old female for bilateral screening mammogram. Tyrer-Cuzick lifetime risk of 6.2%. Current reported family history of breast cancer: mother. The patient had a prior left breast biopsy. PRIOR EXAMS 10/30/2023, 01/09/2023, 07/29/2022, 12/22/2021, MAMMOGRAPHY TECHNIQUE: 2D and 3D (tomosynthesis) digital mammographic views obtained, with additional images as needed for full coverage. Current study was also evaluated with a Computer Aided Detection (CAD) system. DENSITY C. The breasts are heterogeneously dense, which may obscure small masses. MAMMOGRAPHY FINDINGS Right: No suspicious mass, asymmetry, microcalcification, or other abnormality seen. Left: Benign-appearing post-surgical changes noted on the left. There are no suspicious masses, calcifications, or other findings in the breast. IMPRESSION: Right * No evidence of malignancy. Left * No evidence of malignancy with benign findings. RECOMMENDATIONS Bilateral * Annual screening mammography. OVERALL ASSESSMENT CATEGORY BI-RADS-2: Benign. [employer] recommends annual screening mammography beginning at age 40 for women with average risk of breast cancer. ELECTRONICALLY SIGNED: Ciro Ibarra M.D. on 11/13/2024 at 10:51:42 AM PT Interpreting Station ID: [id number]
== END ==
LOC: MAMMO 14:55
PROVIDERS: PCP Family Medicine; Referring Provider Family Medicine; Visit Provider Family Medicine
DX: Z12.31 Encounter for screening mammogram for malignant neoplasm of breast (principal); Z80.3 Family history of malignant neoplasm of breast; R92.333 Mammographic heterogeneous density, bilateral breasts
CPT/HCPCS: 77063; 77067